=== PATIENT | female | born 1955 | race Caucasian/White ===

== ENCOUNTER 2018-01-21 19:30 | Emergency (ER) | payer MEDICARE ==
[~2018-01-21] VITALS: Ht 167.6 cm; Wt 95.0 kg
[~2018-01-21 19:30] MED LIST: ASCO100029 PO; CLON0.1T PO; CYAN1TAB24 PO; PERC5TAB12 PO; RANI150C PO
[2018-01-21 19:52] VITALS: BP 140/68; PULSE 76; RESP 18; TEMP 98.8; O2SAT 98
== END 2018-01-21 22:01 | disposition left against medical advice (07) ==
LOC: NED 19:30
DX: Z03.89 Encounter for observation for other suspected diseases and conditions ruled out (principal)
CPT/HCPCS: 99281

== ENCOUNTER 2018-01-22 11:32 | Inpatient (IN) | payer MEDICARE, MEDICAID ==
[~2018-01-22] VITALS: Ht 167.6 cm; Wt 97.1 kg
[2018-01-22 11:51] VITALS: BP 156/94; PULSE 116; RESP 20; TEMP 99.5; O2SAT 96
[2018-01-22] MEDS ORDERED: METOCLOPRAMIDE HCL 10 MG/2 ML VIAL IV PUSH ONE (12:45)
[2018-01-22] MEDS ORDERED: MORPHINE SULFATE 2 MG/ML SYRINGE IV PUSH ONE (12:45)
[2018-01-22 13:23] VITALS: PULSE 94; RESP 18; O2SAT 100
[2018-01-22] MEDS ORDERED: MORPHINE SULFATE 4 MG/ML INJ ONE (13:33)
--- NOTE | 2018-01-22 13:37 | PD ---
HPI Chief Complaint: Edema Time Seen by Provider: 12:29 Travel History International Travel<30 days: No Contact w/Intl Traveler<30days: No Traveled to known affect area: No History of Present Illness HPI 62-year-old female that presents to the ED for evaluation of right lower leg edema and shortness of breath. Per patient she has had leg edema since yesterday. She has significant history of endometrial cancer that appears to have metastasized. She states that she has a couple lesions in her aorta but has had no issues with it. She has been doing chemoradiation. She had surgery to remove her uterus. She has never had anything like this before. Since yesterday she developed out of nowhere swelling and pain to the right leg. She denies any discoloration of the leg. She denies take any blood thinners. She has got chemo last week. She called her oncologist who recommended that she comes here to get a ultrasound of her leg. She states that her pain is currently 7 out of 10 on her right leg. She takes Percocet chronically. She has an allergy to codeine. She states that the shortness of breath has been ongoing for some time but she has no chest pain. Gets worse with movement and has been ongoing since having her chemo therapy. Per patient her taken about switching her chemo to a different want to my work better for her. She follows with Dr. Montes. [facility], [facility] Past Medical History Hx Anticoagulant Therapy: No Asthma: No Blood Disorders: No Anxiety: No Depression: No Heart Rhythm Problems: No Cancer: Yes Cardiovascular Problems: No High Cholesterol: No Chemotherapy: No Chest Pain: No Congestive Heart Failure: No COPD: No Cerebrovascular Accident: No Diabetes: No Diminished Hearing: No Endocrine: No Gastrointestinal Disorders: No Genitourinary: Yes (hx. of UTIs) Headaches: Yes Hepatitis: No Hypertension: Yes Immune Disorder: No Implanted Vascular Access Dvce: No Musculoskeletal: Yes (bone degeneration) Neurologic: No Psychiatric: No Reproductive: No Respiratory: No Immunizations Current: Yes Radiation Therapy: No Sleep Apnea: No Thyroid Disease: No Tetanus Vaccination: < 5 Years Influenza Vaccination: No Menopausal: Yes : 1 Para: 1 Past Surgical History AICD: No Arteriovenous Shunt: No Body Medical Devices: PORT Section: Yes Gynecologic Surgery: Yes (C=SECTION,HYSTERECTOMY) Hysterectomy: Yes Insulin Pump: No Joint Replacement: No Oral Surgery: Yes (TONSILLECTOMY) Pacemaker: No Tonsillectomy: Yes Other Surgery: Yes (PORT PLACED RT CHEST) Social History Alcohol Use: No Tobacco Use: No Substance Use: No Allergies-Medications (Allergen,Severity, Reaction): Coded Allergies: codeine (Verified Allergy, Severe, 01/22/18) I see birdies Reported Meds & Prescriptions Reported Meds & Active Scripts Active Ranitidine (Ranitidine HCl) 150 Mg Cap 150 Mg PO BID Reported Clonidine (Clonidine HCl) 0.1 Mg Tab 0.1 Mg PO BID Vitamin C (Ascorbic Acid) 1,000 Mg Tablet.er 1 Tab PO B12 (Cyanocobalamin) 1,000 Mcg Tab 1 Tab PO DAILY Percocet (Oxycodone-Acetaminophen) 5-325 mg Tab 1 Tab PO Q4H PRN Review of Systems Except as stated in HPI: all other systems reviewed are Neg Physical Exam Narrative GENERAL: SKIN: Warm and dry. HEAD: Atraumatic. Normocephalic. EYES: Pupils equal and round. No scleral icterus. No injection or drainage. ENT: No nasal bleeding or discharge. Mucous membranes pink and moist. Tongue is midline. No uvula deviation. NECK: Trachea midline. No JVD. CARDIOVASCULAR: Regular rate and rhythm. No murmurs, S3, S4. RESPIRATORY: No accessory muscle use. Clear to auscultation. Breath sounds equal bilaterally. GASTROINTESTINAL: Abdomen soft, non-tender, nondistended. Hepatic and splenic margins not palpable. MUSCULOSKELETAL: Extremities without clubbing, cyanosis, or edema. No obvious deformities. Full range of motion of the upper and lower extremities bilaterally. 2+ pulses bilaterally. Patient does have 2+ pitting edema on the right leg compared to the left. More noticeable above the knee. No obvious calf tenderness. Tender to touch. No redness. NEUROLOGICAL: Awake and alert. No obvious cranial nerve deficits. Motor grossly within normal limits. Five out of 5 muscle strength in the arms and legs. Normal speech. PSYCHIATRIC: Appropriate mood and affect; insight and judgment normal. Data Data Last Documented VS Vital Signs Date Time Temp Pulse Resp B/P (MAP) Pulse Ox O2 Delivery O2 Flow Rate FiO2 01/22/18 13:39 16 01/22/18 13:23 94 100 Room Air 01/22/18 11:51 99.5 156/94 (114) Orders Orders Complete Blood Count With Diff (01/22/18 12:40) Comprehensive Metabolic Panel (01/22/18 12:40) Ckmb (Isoenzyme) Profile (01/22/18 12:40) Troponin I (01/22/18 12:40) B-Type Natriuretic Peptide (01/22/18 12:40) Prothrombin Time / Inr (Pt) (01/22/18 12:40) Act Partial Throm Time (Ptt) (01/22/18 12:40) Magnesium (Mg) (01/22/18 12:40) Thyroid Stimulating Hormone (01/22/18 12:40) Chest, Single Ap (01/22/18 12:40) Iv Access Insert/Monitor (01/22/18 12:40) Ecg Monitoring (01/22/18 12:40) Oximetry (01/22/18 12:40) Morphine Inj (Morphine Inj) (01/22/18 12:45) Metoclopramide Inj (Reglan Inj) (01/22/18 12:45) Us Leg Venous Doppler (01/22/18 ) Morphine Inj (Morphine Inj) (01/22/18 13:33) Ct Pulmonary Angiogram (01/22/18 ) Iohexol 350 Inj (Omnipaque 350 Inj) (01/22/18 15:11) Ondansetron Odt (Zofran Odt) (01/22/18 16:00) Heparin Inj (Heparin Inj) (01/22/18 16:00) Heparin-D5w 25,000 U/250 Ml (Heparin-D5w (01/22/18 16:30) Act Partial Throm Time (Ptt) (01/22/18 15:48) Prothrombin Time / Inr (Pt) (01/22/18 15:48) Cbc No Diff, Includes Plts (01/22/18 15:48) Cbc No Diff, Includes Plts (01/25/18 06:00) Act Partial Throm Time (Ptt) (01/22/18 22:48) Occult Blood (Hemoccult) Stool (01/22/18 15:48) Admit Order (Ed Use Only) (01/22/18 16:11) Labs Laboratory Tests Test 01/22/18 13:30 White Blood Count 18.0 TH/MM3 Red Blood Count 3.83 MIL/MM3 Hemoglobin 9.8 GM/DL Hematocrit 30.8 % Mean Corpuscular Volume 80.3 FL Mean Corpuscular Hemoglobin 25.6 PG Mean Corpuscular Hemoglobin Concent 31.8 % Red Cell Distribution Width 20.5 % Platelet Count 128 TH/MM3 Mean Platelet Volume 7.5 FL Neutrophils (%) (Auto) 89.0 % Lymphocytes (%) (Auto) 6.4 % Monocytes (%) (Auto) 4.3 % Eosinophils (%) (Auto) 0.2 % Basophils (%) (Auto) 0.1 % Neutrophils # (Auto) 16.1 TH/MM3 Lymphocytes # (Auto) 1.1 TH/MM3 Monocytes # (Auto) 0.8 TH/MM3 Eosinophils # (Auto) 0.0 TH/MM3 Basophils # (Auto) 0.0 TH/MM3 CBC Comment DIFF FINAL Differential Comment Prothrombin Time 11.6 SEC Prothromb Time International Ratio 1.1 RATIO Activated Partial Thromboplast Time 24.3 SEC Blood Urea Nitrogen 25 MG/DL Creatinine 0.89 MG/DL Random Glucose 217 MG/DL Total Protein 7.1 GM/DL Albumin 2.7 GM/DL Calcium Level 8.6 MG/DL Magnesium Level 1.9 MG/DL Alkaline Phosphatase 120 U/L Aspartate Amino Transf (AST/SGOT) 8 U/L Alanine Aminotransferase (ALT/SGPT) 27 U/L Total Bilirubin 0.6 MG/DL Sodium Level 137 MEQ/L Potassium Level 4.0 MEQ/L Chloride Level 98 MEQ/L Carbon Dioxide Level 28.2 MEQ/L Anion Gap 11 MEQ/L Estimat Glomerular Filtration Rate 65 ML/MIN Total Creatine Kinase 15 U/L Troponin I LESS THAN 0.02 NG/ML B-Type Natriuretic Peptide 18 PG/ML Thyroid Stimulating Hormone 3rd Gen 1.430 uIU/ML MDM Medical Decision Making Medical Screen Exam Complete: Yes Emergency Medical Condition: Yes Medical Record Reviewed: Yes Interpretation(s) CBC & BMP Diagram 01/22/18 13:30 Total Protein 7.1, Albumin 2.7 L, Calcium Level 8.6, Magnesium Level 1.9, Alkaline Phosphatase 120 H, Aspartate Amino Transf (AST/SGOT) 8 L, Alanine Aminotransferase (ALT/SGPT) 27, Total Bilirubin 0.6 Last Impressions Chest X-Ray 01/22/18 1240 Signed Impressions: CONCLUSION: The lungs are clear. [id number] in good position. Lower Extremity Ultrasound 01/22/18 Signed Impressions: CONCLUSION: 1. Status of occlusive deep venous thrombus involving the right iliac, common femoral, superficial femoral, popliteal and peroneal veins. CT Angiography 01/22/18 Signed Impressions: CONCLUSION: 1. Bilateral subsegmental and segmental pulmonary emboli. 2. No evidence of acute airspace disease 3. Prominent liver and spleen. coags WNL Differential Diagnosis DVT versus PE versus fluid overload versus ACS versus pneumonia versus cancer pain versus less likely CHF Narrative Course 62-year-old female that presents to the ED for evaluation of right leg pain and swelling. Patient was properly examined and was found to have signs and symptoms concerning for DVT. Labs and imaging order. Labs and imaging did show significant DVT to the right leg. Because of the patient's shortness of breath and concern for PE so CTA was ordered because of this. CT did show positive for bilateral PEs. Case was discussed with my attending who evaluated the patient himself. He recommends starting heparin bolus and drip as well as admission to the medical team. Dr. Rivera himself spoke with Dr. Montes who has nothing to add to the medical care. He states that patient can be admitted and treated as we already have plan. Dr. Jimenez was made aware of the case and agrees to admission. Case was discussed with family and patient who in agreement with need for admission and further evaluation. Diagnosis Primary Impression: Bilateral pulmonary embolism Additional Impressions: DVT of leg (deep venous thrombosis) Qualified Codes: I82.491 - Acute embolism and thrombosis of other specified deep vein of right lower extremity Endometrial cancer Admitting Information Admitting Physician Requests: Admit Ricardo Aguirre Jan 22, 2018 13:37
[2018-01-22 13:50] LABS: AUTOMATED NEUTROPHIL # 16.1 TH/MM3 (1.8-7.7); BASOPHIL % 0.1 % (0.0-2.0); EOSINOPHIL % 0.2 % (0.0-4.0); HEMATOCRIT 30.8 % (35.0-46.0); HEMOGLOBIN 9.8 GM/DL (11.6-15.3); LYMPH % 6.4 % (9.0-44.0); LYMPHOCYTE # 1.1 TH/MM3 (1.0-4.8); MEAN CELL VOLUME 80.3 FL (80.0-100.0); MEAN CORPUSCULAR HEMOGLOBIN 25.6 PG (27.0-34.0); MEAN CORPUSCULAR HGB CONC 31.8 % (32.0-36.0); MEAN PLATELET VOLUME 7.5 FL (7.0-11.0); MONO % 4.3 % (0.0-8.0); MONOCYTE # 0.8 TH/MM3 (0-0.9); PLATELET COUNT 128 TH/MM3 (150-450); RED BLOOD COUNT 3.83 MIL/MM3 (4.00-5.30); RED CELL DISTRIBUTION WIDTH 20.5 % (11.6-17.2)
--- NOTE | 2018-01-22 13:57 | RADRPT ---
EXAM DATE: 01/22/2018 1:40 PM EDT AGE/SEX: 62 years / Female INDICATIONS: Lower extremity swelling for 2 days. CLINICAL DATA: This is the patient's initial encounter. Patient reports that signs and symptoms have been present for 2 days and indicates a pain score of 0/10. MEDICAL/SURGICAL HISTORY: . Endometrial cancer. section. Hysterectomy. [id number]. COMPARISON: No prior exams available for comparison. FINDINGS: A single AP view of the chest demonstrates the lungs to be symmetrically aerated without evidence of mass, infiltrate or effusion. The cardiomediastinal contours are unremarkable. Osseous structures a re intact. The [id number] is in good position. CONCLUSION: The lungs are clear. [id number] in good position. Electronically signed by: Gilmar Garcia MD 01/22/2018 1:56 PM EDT
[2018-01-22 14:01] LABS: INTERNATIONAL NORMALIZED RATIO 1.1 RATIO; PROTHROMBIN TIME - PATIENT 11.6 SEC (9.8-11.6)
[2018-01-22 14:08] LABS: ALBUMIN 2.7 GM/DL (3.4-5.0); ALT (GPT) 27 U/L (10-53); BICARBONATE 28.2 MEQ/L (21.0-32.0); BLOOD UREA NITROGEN 25 MG/DL (7-18); CALCIUM 8.6 MG/DL (8.5-10.1); CHLORIDE 98 MEQ/L (98-107); CREATININE 0.89 MG/DL (0.50-1.00); GLOMERULAR FILTRATION RATE 65 ML/MIN (>89); GLUCOSE,RANDOM 217 MG/DL (74-106); MAGNESIUM 1.9 MG/DL (1.5-2.5); SODIUM (NA) 137 MEQ/L (136-145)
--- NOTE | 2018-01-22 14:16 | RADRPT ---
EXAM DATE: 01/22/2018 1:17 PM EDT AGE/SEX: 62 years / Female INDICATIONS: Right leg swelling. CLINICAL DATA: This is the patient's initial encounter. Patient reports that signs and symptoms have been present for 1 day and indicates a pain score of 9/10. MEDICAL/SURGICAL HISTORY: Hypertension. UTI. Bone degenerating. Dyspnea. Tonsillectomy. Emanuel lawson section. Hysterectomy. COMPARISON: No prior exams available for comparison. TECHNIQUE: Venous ultrasound of both lower extremities was performed from the inguinal ligament to t he proximal calf. Real-time, color Doppler and spectral tracing, compression and augmentation techni ques were used. FINDINGS: Extensive occlusive deep venous thrombus is noted involving the right iliac, common femoral, superfic ial femoral, popliteal and peroneal veins. The right posterior tibial veins are patent CONCLUSION: 1. Status of occlusive deep venous thrombus involving the right iliac, common femoral, superficial f emoral, popliteal and peroneal veins. Electronically signed by: Holden Turner MD 01/22/2018 2:14 PM EDT
[2018-01-22 14:18] LABS: ALKALINE PHOSPHATASE 120 U/L (45-117); AST (GOT) 8 U/L (15-37); TOTAL BILIRUBIN ADULT 0.6 MG/DL (0.2-1.0); TOTAL PROTEIN 7.1 GM/DL (6.4-8.2); TROPONIN I LESS THAN 0.02 NG/ML (0.02-0.05)
[2018-01-22] MEDS ORDERED: IOHEXOL 350 MG/ML 10 ML VIAL (for RAD DIAG) IVCONTRAST ONE (15:11)
--- NOTE | 2018-01-22 15:22 | RADRPT ---
EXAM DATE: 01/22/2018 3:16 PM EDT AGE/SEX: 62 years / Female INDICATIONS: Shortness of breath. Right leg swelling. Endometrial cancer. CLINICAL DATA: This is the patient's initial encounter. Patient reports that signs and symptoms have been present for 2 days and indicates a pain score of 10/10. MEDICAL/SURGICAL HISTORY: Hypertension. Hysterectomy. RADIATION DOSE: 23.27 CTDI (mGy) COMPARISON: No prior exams available for comparison. TECHNIQUE: Volumetric scanning was performed using a multi-row detector CT scanner during bolus infu mamie of 66 ml Omnipaque 350 (iohexol) nonionic water-soluble contrast as a single exam dose. The melissa a was post processed with a variety of visualization algorithms including full volume maximum intensi ty projection and sliding thin slab reformation. Using automated exposure control and adjustment of the mA and/or kV according to patient size, radiation dose was kept as low as reasonably achievable t o obtain optimal diagnostic quality images. FINDINGS: Pulmonary Arteries: Segmental and subsegmental filling defects are identified in the pulmonary arter ial tree of both lungs. There is no evidence of thrombus within the main pulmonary arteries. Lung: No infiltrates seen. Effusion: None. Mediastinum: No evidence of mediastinal or hilar adenopathy. Other: The axilla is unremarkable. CONCLUSION: 1. Bilateral subsegmental and segmental pulmonary emboli. 2. No evidence of acute airspace disease 3. Prominent liver and spleen. Electronically signed by: Omar Borges MD 01/22/2018 3:20 PM EDT
[2018-01-22] MEDS ORDERED: ONDANSETRON ODT 4 MG TAB PO ONE (16:00)
[2018-01-22] MEDS ORDERED: HEPARIN SODIUM - IV 10,000 UNITS/10 ML VIAL IV PUSH ONE (16:00)
[2018-01-22] MEDS ORDERED: cloNIDine HCL 0.1 MG TAB PO PRN (16:15)
[2018-01-22] MEDS ORDERED: SODIUM CHLORIDE 0.9% FLUSH 10 ML FLUSH IV FLUSH PRN (16:30)
[2018-01-22] MEDS ORDERED: BISACODYL 10 MG SUPP RECTAL PRN (16:30)
[2018-01-22] MEDS ORDERED: ACETAMINOPHEN 325 MG TAB PO PRN (16:30)
[2018-01-22] MEDS ORDERED: oxyCODONE/ACETAMINOPHEN 10 MG/325 MG TAB PO PRN (16:30)
[2018-01-22] MEDS ORDERED: INFO FOR PHARMACY/READ COMMENT ONE (16:30)
[2018-01-22] MEDS ORDERED: NALOXONE HCL 0.4 MG/ML AMP IV PUSH PRN (16:30)
[2018-01-22] MEDS ORDERED: HEPARIN-D5W 25,000 U/250 ML 250 ML IV PRN (16:30)
[2018-01-22] MEDS ORDERED: NON-FORMULARY DRUG (Cyanocobalamin (B12) 1 TAB) PO SCH (16:45)
--- NOTE | 2018-01-22 16:54 | HHI.HP ---
[facility] Primary Care Physician Fabrice Robledo MD (Paul) Admission Diagnosis acute right leg DVT and bilateral PE, cancer patient Diagnoses: (1) Morbid obesity Diagnosis: Secondary (2) Endometrial cancer Diagnosis: Secondary (3) Bilateral pulmonary embolism Diagnosis: Principal (4) DVT of leg (deep venous thrombosis) Diagnosis: Principal Chief Complaint: SWELLING IN RIGHT LOWER EXTREMITIY Travel History International Travel<30 Days: No Contact w/Intl Traveler <30 Da: No Traveled to Known Affected Are: No History of Present Illness Patient is a 62-year-old female presented to the emergency department for evaluation of right lower extremity increasing shortness of breath. Patient has had leg edema since yesterday at least. She has had history of endometrial cancer that has metastasized. She has had a couple lesions in her aorta no issues with that from what she knows of. She has been undergoing chemo. Yesterday she started to develop swelling of the right leg out of nowhere. Denies any discoloration of the leg. Denies taking any blood thinners. She had chemo therapy last week. She called her oncologist Dr. Montes who recommended that she come here to get an ultrasound of her leg. Pain was 7 out of 10 in her right leg she chronically takes Percocet 5/325 every 6 hours and ibuprofen 400 mg every 6 hours. She has had the shortness of breath ongoing for some time denies any chest pain it is worse with movement worsens having chemotherapy patient follows with Dr. Montes and Dr. Robledo at the [facility]. Patient found to have bilateral pulmonary emboli and right lower extremity DVTs will be admitted for heparin drip and eventual transition to oral anticoagulation Review of Systems Constitutional: COMPLAINS OF: Fatigue, DENIES: Diaphoretic episodes, Fever, Weight gain, Weight loss, Chills, Dizziness, Change in appetite, Night Sweats Endocrine: DENIES: Abnorml menstrual pattern, Heat/cold intolerance, Polydipsia , Polyuria, Polyphagia Eyes: DENIES: Blurred vision, Diplopia, Eye inflammation, Eye pain, Vision loss , Photosensitivity, Double Vision Ears, nose, mouth, throat: DENIES: Tinnitus, Hearing loss, Vertigo, Nasal discharge, Oral lesions, Throat pain, Hoarseness, Ear Pain, Running Nose, Epistaxis, Sinus Pain, Toothache, Odynophagia Respiratory: COMPLAINS OF: Cough, Snoring, Shortness of breath, DENIES: Apneas , Wheezing, Hemoptysis, Sputum production Cardiovascular: COMPLAINS OF: Dyspnea on Exertion, Lower Extremity Edema (In right lower extremity), DENIES: Chest pain, Palpitations, Syncope, PND, Orthopnea, Claudication Gastrointestinal: COMPLAINS OF: Abdominal pain, Nausea, Vomiting, DENIES: Black stools, Bloody stools, Constipation, Diarrhea, Difficulty Swallowing, Anorexia Genitourinary: DENIES: Abnormal vaginal bleeding, Dysmenorrhea, Dyspareunia, Sexual dysfunction, Urinary frequency, Urinary incontinence, Urgency, Hematuria , Dysuria, Nocturia Musculoskeletal: COMPLAINS OF: Muscle aches, Back pain, DENIES: Joint pain, Stiffness, Joint Swelling Integumentary: DENIES: Abnormal pigmentation, Pruritus, Rash, Nail changes, Breast masses, Breast skin changes, Nipple discharge Hematologic/lymphatic: DENIES: Bruising, Lymphadenopathy Immunologic/allergic: DENIES: Eczema, Urticaria Neurologic: DENIES: Abnormal gait, Headache, Localized weakness, Paresthesias, Seizures, Speech Problems, Tremor, Poor Balance Psychiatric: DENIES: Anxiety, Confusion, Mood changes, Depression, Hallucinations, Agitation, Suicidal Ideation, Homicidal Ideation, Delusions Except as stated in HPI: all other systems reviewed are Neg Past Family Social History Past Medical History Endometrial carcinoma with metastasis Chronic pain History of multiple UTIs Obesity Hypertension History of vascular access with port Past Surgical History Status post port placement right side of chest section Hysterectomy total with bilateral salpingo-oophorectomy Tonsillectomy Reported Medications Reported Meds & Active Scripts Active Ranitidine (Ranitidine HCl) 150 Mg Cap 150 Mg PO BID Reported Clonidine (Clonidine HCl) 0.1 Mg Tab 0.1 Mg PO BID Vitamin C (Ascorbic Acid) 1,000 Mg Tablet.er 1 Tab PO B12 (Cyanocobalamin) 1,000 Mcg Tab 1 Tab PO DAILY Percocet (Oxycodone-Acetaminophen) 5-325 mg Tab 1 Tab PO Q4H PRN Allergies: Coded Allergies: codeine (Verified Allergy, Severe, 01/22/18) I see birdies Active Ordered Medications Current Medications Morphine Sulfate (Morphine Inj) 2 mg ONCE ONCE IV PUSH Last administered on 07/30at 13:34; Start 01/22/18 at 12:45; Stop 01/22/18 at 12:46; Status DC Metoclopramide HCl (Reglan Inj) 5 mg ONCE ONCE IV PUSH Last administered on 07/30at 13:33; Start 01/22/18 at 12:45; Stop 01/22/18 at 12:46; Status DC Morphine Sulfate (Morphine Inj) 4 mg STK-MED ONCE .ROUTE ; Start 01/22/18 at 13: 33; Stop 01/22/18 at 13:34; Status DC Iohexol (Omnipaque 350 Inj) 66 ml STK-MED ONCE IVCONTRAST Last administered on 01/22/18at 15:11; Start 01/22/18 at 15:11; Stop 01/22/18 at 15:12; Status DC Ondansetron HCl (Zofran Odt) 4 mg ONCE ONCE PO Last administered on at 15:57; Start 01/22/18 at 16:00; Stop 01/22/18 at 16:01; Status DC Heparin Sodium (Porcine) (Heparin Inj) 8,000 units ONCE ONCE IV PUSH Last administered on 01/22/18at 15:57; Start 01/22/18 at 16:00; Stop 01/22/18 at 16:01 ; Status DC Heparin Sodium/ Dextrose 250 ml @ 17 mls/hr TITRATE PRN IV Coagulation Management Last administered on 01/22/18at 16:36; Start 01/22/18 at 16:30 Clonidine (Catapres) 0.1 mg Q4H PRN PO SBP>160, DBP>90; Start 01/22/18 at 16:15 ; Status UNV Sodium Chloride (NS Flush) 2 ml UNSCH PRN IV FLUSH FLUSH AFTER USING IV ACCESS ; Start 01/22/18 at 16:30; Status UNV Sodium Chloride (NS Flush) 2 ml BID IV FLUSH ; Start 01/22/18 at 21:00; Status UNV Acetaminophen (Tylenol) 650 mg Q4H PRN PO TEMP > 100.4; Start 01/22/18 at 16:30 ; Status UNV Ondansetron HCl (Zofran Inj) 4 mg Q6H PRN IVP NAUSEA OR VOMITING; Start at 16:30; Status UNV Acetaminophen (Tylenol) 650 mg Q6H PRN PO PAIN SCALE 1 TO 2; Start 01/22/18 at 16:30; Status UNV Ibuprofen (Motrin) 400 mg Q6H PRN PO PAIN SCALE 1 TO 2; Start 01/22/18 at 16:30 ; Status UNV Oxycodone/ Acetaminophen (Percocet 5-325 Mg) 1 tab Q6H PRN PO PAIN SCALE 3 TO 5; Start 01/22/18 at 16:30; Status UNV Oxycodone/ Acetaminophen (Percocet 10-325 Mg) 1 tab Q6H PRN PO PAIN SCALE 6 TO 10; Start 01/22/18 at 16:30; Status UNV Morphine Sulfate (Morphine Inj) 2 mg Q3H PRN IV PUSH Pain 3-5; if unable to take PO; Start 01/22/18 at 16:30; Status UNV Morphine Sulfate (Morphine Inj) 4 mg Q3H PRN IV PUSH Pain 6-10;if unable to take PO; Start 01/22/18 at 16:30; Status UNV Morphine Sulfate (Morphine Inj) 4 mg Q3H PRN IV PUSH BREAKTHROUGH PAIN; Start 01/22/18 at 16:30; Status UNV Naloxone HCl (Narcan Inj) 0.4 mg UNSCH PRN IV PUSH SEE LABEL COMMENTS; Start at 16:30; Status UNV Senna/Docusate Sodium (Irene-Colace) 1 tab BID PO ; Start 01/22/18 at 21:00; Status UNV Magnesium Hydroxide (Milk Of Magnesia Liq) 30 ml Q12H PRN PO Mild constipation ; Start 01/22/18 at 16:30; Status UNV Sennosides (Senokot) 17.2 mg Q12H PRN PO Moderate constipation; Start 01/22/18 at 16:30; Status UNV Bisacodyl (Dulcolax Supp) 10 mg DAILY PRN RECTAL SEVERE CONSITIPATION; Start at 16:30; Status UNV Lactulose (Lactulose Liq) 30 ml DAILY PRN PO SEVERE CONSITIPATION; Start at 16:30; Status UNV Info ([facility] [place] Info For Pharmacy/Read Comment) 1 ONCE ONCE XX ; Start 01/22/18 at 16:30; Stop 01/22/18 at 16:31; Status UNV Patient Medication Teaching (Coumadin Booklet) 1 ONCE ONCE XX ; Start 01/22/18 at 16:30; Stop 01/22/18 at 16:31; Status UNV Warfarin Sodium (Coumadin) 5 mg DAILY@1600 PO ; Start 01/22/18 at 16:30; Status UNV Sodium Chloride (NS Flush) 2 ml UNSCH PRN IV FLUSH FLUSH AFTER USING IV ACCESS ; Start 01/22/18 at 16:30; Status UNV Sodium Chloride (NS Flush) 2 ml BID IV FLUSH ; Start 01/22/18 at 21:00; Status UNV Heparin Sodium/ Dextrose 250 ml @ 0 mls/hr TITRATE PRN IV Coagulation Management; Start 01/22/18 at 16:30; Status UNV Clonidine (Catapres) 0.1 mg BID PO ; Start 01/22/18 at 21:00; Status UNV Non-Formulary Medication 1 tab DAILY PO ; Start 01/22/18 at 16:45; Status UNV Non-Formulary Medication 150 mg BID PO ; Start 01/22/18 at 21:00; Status UNV Prochlorperazine Edisylate (Compazine Inj) 10 mg Q6H PRN IV PUSH NAUSEA/ VOMITING; Start 01/22/18 at 16:45; Status UNV Family History Hypertension Diabetes Social History Denies any tobacco alcohol or illicits currently Physical Exam Vital Signs Vital Signs Date Time Temp Pulse Resp B/P (MAP) Pulse Ox O2 Delivery O2 Flow Rate FiO2 01/22/18 13:39 16 01/22/18 13:23 94 18 100 Room Air 01/22/18 11:51 99.5 116 20 156/94 (114) 96 Physical Exam GENERAL: This is a well-nourished, well-developed patient, in mild distress SKIN: No rashes, ecchymoses or lesions. Cool and dry. HEAD: Atraumatic. Normocephalic. No temporal or scalp tenderness. EYES: Pupils equal round and reactive. Extraocular motions intact. No scleral icterus. No injection or drainage. ENT: Nose without bleeding, purulent drainage or septal hematoma. Throat without erythema, tonsillar hypertrophy or exudate. Uvula midline. Airway patent. NECK: Trachea midline. No JVD or lymphadenopathy. Supple, nontender, no meningeal signs. CARDIOVASCULAR: Regular rate and rhythm without murmurs, gallops, or rubs. S1- S2 no S3 or S4 RESPIRATORY: Clear to auscultation. Breath sounds equal bilaterally. No wheezes , rales, or rhonchi. GASTROINTESTINAL: Abdomen soft, non-tender, nondistended. No hepato-splenomegaly , or palpable masses. No guarding. Obese MUSCULOSKELETAL: Extremities without clubbing, cyanosis, swelling and edema right lower extremity no joint tenderness, effusion, or edema noted. No calf tenderness. Negative Homans sign bilaterally. NEUROLOGICAL: Awake and alert. Cranial nerves II through XII intact. Motor and sensory grossly within normal limits. Five out of 5 muscle strength in all muscle groups. Normal speech. Insight and judgment is good Mood and behavior is appropriate Laboratory Laboratory Tests Test 01/22/18 13:30 White Blood Count 18.0 Red Blood Count 3.83 Hemoglobin 9.8 Hematocrit 30.8 Mean Corpuscular Volume 80.3 Mean Corpuscular Hemoglobin 25.6 Mean Corpuscular Hemoglobin Concent 31.8 Red Cell Distribution Width 20.5 Platelet Count 128 Mean Platelet Volume 7.5 Neutrophils (%) (Auto) 89.0 Lymphocytes (%) (Auto) 6.4 Monocytes (%) (Auto) 4.3 Eosinophils (%) (Auto) 0.2 Basophils (%) (Auto) 0.1 Neutrophils # (Auto) 16.1 Lymphocytes # (Auto) 1.1 Monocytes # (Auto) 0.8 Eosinophils # (Auto) 0.0 Basophils # (Auto) 0.0 CBC Comment DIFF FINAL Differential Comment Prothrombin Time 11.6 Prothromb Time International Ratio 1.1 Activated Partial Thromboplast Time 24.3 Blood Urea Nitrogen 25 Creatinine 0.89 Random Glucose 217 Total Protein 7.1 Albumin 2.7 Calcium Level 8.6 Magnesium Level 1.9 Alkaline Phosphatase 120 Aspartate Amino Transf (AST/SGOT) 8 Alanine Aminotransferase (ALT/SGPT) 27 Total Bilirubin 0.6 Sodium Level 137 Potassium Level 4.0 Chloride Level 98 Carbon Dioxide Level 28.2 Anion Gap 11 Estimat Glomerular Filtration Rate 65 Total Creatine Kinase 15 Troponin I LESS THAN 0.02 B-Type Natriuretic Peptide 18 Thyroid Stimulating Hormone 3rd Gen 1.430 Result Diagram: 01/22/18 1330 01/22/18 1330 Imaging Last Impressions Chest X-Ray 01/22/18 1240 Signed Impressions: CONCLUSION: The lungs are clear. [id number] in good position. Lower Extremity Ultrasound 01/22/18 0000 Signed Impressions: CONCLUSION: 1. Status of occlusive deep venous thrombus involving the right iliac, common femoral, superficial femoral, popliteal and peroneal veins. CT Angiography 01/22/18 0000 Signed Impressions: CONCLUSION: 1. Bilateral subsegmental and segmental pulmonary emboli. 2. No evidence of acute airspace disease 3. Prominent liver and spleen. Caprini VTE Risk Assessment Caprini VTE Risk Assessment: Mod/High Risk (score >= 2) Caprini Risk Assessment Model Point Value = 1 Point Value = 2 Point Value = 3 Point Value = 5 Age 41-60 Minor surgery BMI > 25 kg/m2 Swollen legs Varicose veins or History of unexplained or recurrent spontaneous Oral contraceptives or hormone replacement Sepsis (< 1 month) Serious lung disease, including pneumonia (< 1 month) Abnormal pulmonary function Acute myocardial infarction Congestive heart failure (< 1 month) History of inflammatory bowel disease Medical patient at bed rest Age 61-74 Arthroscopic surgery Major open surgery (> 45 min) Laparoscopic surgery (> 45 min) Malignancy Confined to bed (> 72 hours) Immobilizing plaster cast Central venous access Age >= 75 History of VTE Family history of VTE Factor V Leiden Prothrombin [id number] Lupus anticoagulant Anticardiolipin antibodies Elevated serum homocysteine Heparin-induced thrombocytopenia Other congenital or acquired thrombophilia Stroke (< 1 month) Elective arthroplasty Hip, pelvis, or leg fracture Acute spinal cord injury (< 1 month) Prophylaxis Regimen Total Risk Factor Score Risk Level Prophylaxis Regimen 0-1 Low Early ambulation 2 Moderate Order ONE of the following: *Sequential Compression Device (SCD) *Heparin 5000 units SQ BID 3-4 Higher Order ONE of the following medications: *Heparin 5000 units SQ TID *Enoxaparin/Lovenox 40 mg SQ daily (WT < 150 kg, CrCl > 30 mL/min) *Enoxaparin/Lovenox 30 mg SQ daily (WT < 150 kg, CrCl > 10-29 mL/min) *Enoxaparin/Lovenox 30 mg SQ BID (WT < 150 kg, CrCl > 30 mL/min) AND/OR *Sequential Compression Device (SCD) 5 or more Highest Order ONE of the following medications: *Heparin 5000 units SQ TID (Preferred with Epidurals) *Enoxaparin/Lovenox 40 mg SQ daily (WT < 150 kg, CrCl > 30 mL/min) *Enoxaparin/Lovenox 30 mg SQ daily (WT < 150 kg, CrCl > 10-29 mL/min) *Enoxaparin/Lovenox 30 mg SQ BID (WT < 150 kg, CrCl > 30 mL/min) AND *Sequential Compression Device (SCD) Assessment and Plan Problem List: (1) Hypercoagulable state ICD Code: D68.59 - Other primary thrombophilia (2) Hypertension ICD Code: I10 - Essential (primary) hypertension (3) Morbid obesity ICD Code: E66.01 - Morbid (severe) obesity due to excess calories (4) Endometrial cancer ICD Code: C54.1 - Malignant neoplasm of endometrium Status: Acute (5) Bilateral pulmonary embolism ICD Code: I26.99 - Other pulmonary embolism without acute cor pulmonale Status: Acute (6) DVT of leg (deep venous thrombosis) ICD Code: I82.409 - Acute embolism and thrombosis of unspecified deep veins of unspecified lower extremity Status: Acute Assessment and Plan Bilateral pulmonary emboli and right lower extremity DVT will start on heparin drip and Coumadin and see what novel anticoagulation or Coumadin is covered by her healthcare insurance Consult Dr. Montes of [facility] who is been following her regarding her endometrial carcinoma with metastasis Pain control continue on her protocol of Percocet 5/325 alternating with ibuprofen 400 mg Hypertension continue on clonidine and as needed clonidine Hyperglycemia check a hemoglobin A1c and continue on a diabetic diet with Accu- Cheks before meals and at bedtime Probable obstructive sleep apnea recommend outpatient sleep study Have nursing access her port for vascular access GERD continue on ranitidine and antinausea medication Nausea continue on Zofran and Compazine as needed for nausea A.m. labs Continue on heparin drip Daily PT/INR Case management for help with home anticoagulation Pain control GI and DVT prophylaxis Diabetic education with nutrition and clinical document improvement educator Code Status Full code Discussed Condition With RN and patient and family and Dr. Montes staff and emergency room physician and emergency room PA Physician Certification 2 Midnight Certification Type: Admission for Inpatient Services Order for Inpatient Services The services are ordered in accordance with Medicare regulations or non- Medicare payer requirements, as applicable. In the case of services not specified as inpatient-only, they are appropriately provided as inpatient services in accordance with the 2-midnight benchmark. Estimated LOS (days): 3 days is the estimated time the patient will need to remain in the hospital, assuming treatment plan goals are met and no additional complications. Post-Hospital Plan: Not yet determined Problem Qualifiers (1) DVT of leg (deep venous thrombosis): Qualified Codes: I82.491 - Acute embolism and thrombosis of other specified deep vein of right lower extremity Carlton Jimenez DO Jan 22, 2018 16:54
[2018-01-22] MEDS ORDERED: GLUCAGON 1 MG/ML VIAL OTHER PRN (17:00)
[2018-01-22] MEDS ORDERED: DEXTROSE 50% IN WATER 50 ML VIAL(D50) IV PUSH PRN (17:00)
[2018-01-22 17:05] VITALS: BP 122/56; PULSE 91; RESP 18; O2SAT 97
--- NOTE | 2018-01-22 17:12 | PD.CONS ---
History of Present Illness Service gyn physician/onc Consult Requested By Dr. Rivera Reason for Consult DVT and PE Primary Care Physician Fabrice Robledo MD (Paul) Diagnoses: (1) DVT of leg (deep venous thrombosis) (2) Bilateral pulmonary embolism History of Present Illness This is a patient known to [facility]/ONC clinic for recurrent endometrial cancer. She currently is being treated with single agent Carboplatin. She was doing well but noticed a few week history of right leg pain when she was getting in and out of her car, then yesterday she noticed that her leg was more painful and swollen. She presented to ER for evaluation but left, unseen after three hours. She contacted our office today and was told she needed stat u/s of right leg, in the process of getting this scheduled she presented back to ER for evaluation. Ultrasound shown + DVT to right leg and + PE. Medicine service is going to admit her for treatment with Heparin gtt with transition to oral anticoagulation. Patient is seen in consult in ER for above findings. She states she has no other pain except in her right leg but is also having SOA. Review of Systems Respiratory: COMPLAINS OF: Shortness of breath Except as stated in HPI: all other systems reviewed are Neg right leg swelling and pain Past Family Social History Allergies: Coded Allergies: codeine (Verified Allergy, Severe, 01/22/18) I see birdies Past Medical History HTN osteoporosis Endometrial carcinoma with metastasis History of multiple UTIs Obesity Hypertension Past Surgical History infusa port placement RA lap hyst Tonsillectomy Reported Medications per EMR Active Ordered Medications Current Medications Morphine Sulfate (Morphine Inj) 2 mg ONCE ONCE IV PUSH Last administered on 07/30at 13:34; Start 01/22/18 at 12:45; Stop 01/22/18 at 12:46; Status DC Metoclopramide HCl (Reglan Inj) 5 mg ONCE ONCE IV PUSH Last administered on 07/30at 13:33; Start 01/22/18 at 12:45; Stop 01/22/18 at 12:46; Status DC Morphine Sulfate (Morphine Inj) 4 mg STK-MED ONCE .ROUTE ; Start 01/22/18 at 13: 33; Stop 01/22/18 at 13:34; Status DC Iohexol (Omnipaque 350 Inj) 66 ml STK-MED ONCE IVCONTRAST Last administered on 01/22/18at 15:11; Start 01/22/18 at 15:11; Stop 01/22/18 at 15:12; Status DC Ondansetron HCl (Zofran Odt) 4 mg ONCE ONCE PO Last administered on at 15:57; Start 01/22/18 at 16:00; Stop 01/22/18 at 16:01; Status DC Heparin Sodium (Porcine) (Heparin Inj) 8,000 units ONCE ONCE IV PUSH Last administered on 01/22/18at 15:57; Start 01/22/18 at 16:00; Stop 01/22/18 at 16:01 ; Status DC Heparin Sodium/ Dextrose 250 ml @ 17 mls/hr TITRATE PRN IV Coagulation Management Last administered on 01/22/18at 16:36; Start 01/22/18 at 16:30 Clonidine (Catapres) 0.1 mg Q4H PRN PO SBP>160, DBP>90; Start 01/22/18 at 16:15 ; Status UNV Sodium Chloride (NS Flush) 2 ml UNSCH PRN IV FLUSH FLUSH AFTER USING IV ACCESS ; Start 01/22/18 at 16:30; Status UNV Sodium Chloride (NS Flush) 2 ml BID IV FLUSH ; Start 01/22/18 at 21:00; Status UNV Acetaminophen (Tylenol) 650 mg Q4H PRN PO TEMP > 100.4; Start 01/22/18 at 16:30 ; Status UNV Ondansetron HCl (Zofran Inj) 4 mg Q6H PRN IVP NAUSEA OR VOMITING; Start at 16:30; Status UNV Acetaminophen (Tylenol) 650 mg Q6H PRN PO PAIN SCALE 1 TO 2; Start 01/22/18 at 16:30; Status UNV Ibuprofen (Motrin) 400 mg Q6H PRN PO PAIN SCALE 1 TO 2; Start 01/22/18 at 16:30 ; Status UNV Oxycodone/ Acetaminophen (Percocet 5-325 Mg) 1 tab Q6H PRN PO PAIN SCALE 3 TO 5; Start 01/22/18 at 16:30; Status UNV Oxycodone/ Acetaminophen (Percocet 10-325 Mg) 1 tab Q6H PRN PO PAIN SCALE 6 TO 10; Start 01/22/18 at 16:30; Status UNV Morphine Sulfate (Morphine Inj) 2 mg Q3H PRN IV PUSH Pain 3-5; if unable to take PO; Start 01/22/18 at 16:30; Status UNV Morphine Sulfate (Morphine Inj) 4 mg Q3H PRN IV PUSH Pain 6-10;if unable to take PO; Start 01/22/18 at 16:30; Status UNV Morphine Sulfate (Morphine Inj) 4 mg Q3H PRN IV PUSH BREAKTHROUGH PAIN; Start 01/22/18 at 16:30; Status UNV Naloxone HCl (Narcan Inj) 0.4 mg UNSCH PRN IV PUSH SEE LABEL COMMENTS; Start at 16:30; Status UNV Senna/Docusate Sodium (Irene-Colace) 1 tab BID PO ; Start 01/22/18 at 21:00; Status UNV Magnesium Hydroxide (Milk Of Magnesia Liq) 30 ml Q12H PRN PO Mild constipation ; Start 01/22/18 at 16:30; Status UNV Sennosides (Senokot) 17.2 mg Q12H PRN PO Moderate constipation; Start 01/22/18 at 16:30; Status UNV Bisacodyl (Dulcolax Supp) 10 mg DAILY PRN RECTAL SEVERE CONSITIPATION; Start at 16:30; Status UNV Lactulose (Lactulose Liq) 30 ml DAILY PRN PO SEVERE CONSITIPATION; Start at 16:30; Status UNV Info ([facility] [place] Info For Pharmacy/Read Comment) 1 ONCE ONCE XX ; Start 01/22/18 at 16:30; Stop 01/22/18 at 16:31; Status UNV Patient Medication Teaching (Coumadin Booklet) 1 ONCE ONCE XX ; Start 01/22/18 at 16:30; Stop 01/22/18 at 16:31; Status UNV Warfarin Sodium (Coumadin) 5 mg DAILY@1600 PO ; Start 01/22/18 at 16:30; Status UNV Sodium Chloride (NS Flush) 2 ml UNSCH PRN IV FLUSH FLUSH AFTER USING IV ACCESS ; Start 01/22/18 at 16:30; Status UNV Sodium Chloride (NS Flush) 2 ml BID IV FLUSH ; Start 01/22/18 at 21:00; Status UNV Heparin Sodium/ Dextrose 250 ml @ 0 mls/hr TITRATE PRN IV Coagulation Management; Start 01/22/18 at 16:30; Status UNV Clonidine (Catapres) 0.1 mg BID PO ; Start 01/22/18 at 21:00; Status UNV Non-Formulary Medication 1 tab DAILY PO ; Start 01/22/18 at 16:45; Status UNV Non-Formulary Medication 150 mg BID PO ; Start 01/22/18 at 21:00; Status UNV Prochlorperazine Edisylate (Compazine Inj) 10 mg Q6H PRN IV PUSH NAUSEA/ VOMITING; Start 01/22/18 at 16:45; Status UNV Social History denies alcohol denies tobacco Physical Exam Vital Signs Vital Signs Date Time Temp Pulse Resp B/P (MAP) Pulse Ox O2 Delivery O2 Flow Rate FiO2 01/22/18 13:39 16 01/22/18 13:23 94 18 100 Room Air 01/22/18 11:51 99.5 116 20 156/94 (114) 96 Physical Exam GENERAL: This is a well-nourished, well-developed patient, in no apparent distress. SKIN: No rashes, ecchymoses or lesions. Cool and dry. HEAD: Atraumatic. Normocephalic. No temporal or scalp tenderness. EYES: Pupils equal round and reactive. Extraocular motions intact. No scleral icterus. No injection or drainage. NECK: Trachea midline. CARDIOVASCULAR: Regular rate and rhythm without murmurs, gallops, or rubs. RESPIRATORY: Clear to auscultation. Breath sounds equal bilaterally. No wheezes , rales, or rhonchi. GASTROINTESTINAL: Abdomen soft, non-tender, nondistended. No hepato-splenomegaly , or palpable masses. No guarding. MUSCULOSKELETAL: RL Extremities . + calf tenderness. + Homans sign bilaterally and swelling, skin warm to palpation NEUROLOGICAL: Awake and alert. Laboratory Laboratory Tests Test 01/22/18 13:30 White Blood Count 18.0 Red Blood Count 3.83 Hemoglobin 9.8 Hematocrit 30.8 Mean Corpuscular Volume 80.3 Mean Corpuscular Hemoglobin 25.6 Mean Corpuscular Hemoglobin Concent 31.8 Red Cell Distribution Width 20.5 Platelet Count 128 Mean Platelet Volume 7.5 Neutrophils (%) (Auto) 89.0 Lymphocytes (%) (Auto) 6.4 Monocytes (%) (Auto) 4.3 Eosinophils (%) (Auto) 0.2 Basophils (%) (Auto) 0.1 Neutrophils # (Auto) 16.1 Lymphocytes # (Auto) 1.1 Monocytes # (Auto) 0.8 Eosinophils # (Auto) 0.0 Basophils # (Auto) 0.0 CBC Comment DIFF FINAL Differential Comment Prothrombin Time 11.6 Prothromb Time International Ratio 1.1 Activated Partial Thromboplast Time 24.3 Blood Urea Nitrogen 25 Creatinine 0.89 Random Glucose 217 Total Protein 7.1 Albumin 2.7 Calcium Level 8.6 Magnesium Level 1.9 Alkaline Phosphatase 120 Aspartate Amino Transf (AST/SGOT) 8 Alanine Aminotransferase (ALT/SGPT) 27 Total Bilirubin 0.6 Sodium Level 137 Potassium Level 4.0 Chloride Level 98 Carbon Dioxide Level 28.2 Anion Gap 11 Estimat Glomerular Filtration Rate 65 Total Creatine Kinase 15 Troponin I LESS THAN 0.02 B-Type Natriuretic Peptide 18 Thyroid Stimulating Hormone 3rd Gen 1.430 Result Diagram: 01/22/18 1330 01/22/18 1330 Imaging Last Impressions Chest X-Ray 01/22/18 1240 Signed Impressions: CONCLUSION: The lungs are clear. [id number] in good position. Lower Extremity Ultrasound 01/22/18 0000 Signed Impressions: CONCLUSION: 1. Status of occlusive deep venous thrombus involving the right iliac, common femoral, superficial femoral, popliteal and peroneal veins. CT Angiography 01/22/18 0000 Signed Impressions: CONCLUSION: 1. Bilateral subsegmental and segmental pulmonary emboli. 2. No evidence of acute airspace disease 3. Prominent liver and spleen. Assessment and Plan Problem List: (1) Bilateral pulmonary embolism ICD Codes: I26.99 - Other pulmonary embolism without acute cor pulmonale Status: Acute (2) Endometrial cancer ICD Codes: C54.1 - Malignant neoplasm of endometrium Status: Chronic Plan: will hold IV chemotherapy at this time until discharged pt will receive Doxil and Carboplatin as next line treatment in hopes to achieve better response. (3) DVT of leg (deep venous thrombosis) ICD Codes: I82.409 - Acute embolism and thrombosis of unspecified deep veins of unspecified lower extremity Status: Acute Plan: Medical team to admit Heparin gtt with transition to oral medication Discussed Condition With Hospitalist, Dr. Jimenez ER physician, Dr. Miguel Montes patient and her aunt Problem Qualifiers (1) DVT of leg (deep venous thrombosis): Qualified Codes: I82.491 - Acute embolism and thrombosis of other specified deep vein of right lower extremity Cara Dalton Jan 22, 2018 17:12
[2018-01-22 17:25] VITALS: BP 138/68; PULSE 90; RESP 18; TEMP 99.4; O2SAT 98
[2018-01-22] MEDS ORDERED: MORPHINE SULFATE 4 MG/ML INJ IV PRN (17:45)
[2018-01-22] MEDS: WARFARIN SOD 5 MG TAB PO SCH (18:30)
[2018-01-22] MEDS: INSULIN ASPART SUPPLEMENTAL SCALE SQ SCH ×2 (18:30→21:49)
[2018-01-22] MEDS: oxyCODONE/ACETAMINOPHEN 5 MG/325 MG TAB PO PRN ×2 (19:00→21:39)
[2018-01-22 20:01] VITALS: PULSE 87
[2018-01-22 20:27] VITALS: BP 149/79; PULSE 82; RESP 18; TEMP 99.1; O2SAT 97
[2018-01-22] MEDS ORDERED: NON-FORMULARY DRUG (Ranitidine 150 MG) PO SCH (21:00)
[2018-01-22] MEDS ORDERED: SODIUM CHLORIDE 0.9% FLUSH 10 ML FLUSH IV FLUSH SCH (21:00)
[2018-01-22] MEDS: ONDANSETRON ODT 4 MG TAB PO PRN (21:38)
[2018-01-22] MEDS: DOCUSATE SODIUM 50 MG/SENNA 8.6 MG TAB PO SCH (21:39)
[2018-01-22] MEDS: FAMOTIDINE 20 MG TAB PO SCH (21:40)
[2018-01-22] MEDS: cloNIDine HCL 0.1 MG TAB PO SCH (21:40)
[2018-01-22] MEDS: SODIUM CHLORIDE 0.9% FLUSH 10 ML FLUSH IV FLUSH SCH (21:41)
[2018-01-22] MEDS ORDERED: LIDOCAINE-PRILOCAIN 2.5% CREAM 5 GM TUBE TOPICAL PRN (22:00)
[2018-01-23] VITALS (10 sets, daily range): BP systolic 117–128; BP diastolic 47–84; PULSE 64–85; RESP 16–18; TEMP 97.5–100.4; O2SAT 96–100
[2018-01-23 00:20] LABS: AUTOMATED NEUTROPHIL # 14.4 TH/MM3 (1.8-7.7); BASOPHIL % 0.3 % (0.0-2.0); EOSINOPHIL % 0.3 % (0.0-4.0); HEMATOCRIT 28.2 % (35.0-46.0); HEMOGLOBIN 9.3 GM/DL (11.6-15.3); LYMPH % 11.7 % (9.0-44.0); MEAN CELL VOLUME 80.9 FL (80.0-100.0); MEAN CORPUSCULAR HEMOGLOBIN 26.6 PG (27.0-34.0); MEAN CORPUSCULAR HGB CONC 32.8 % (32.0-36.0); MEAN PLATELET VOLUME 7.8 FL (7.0-11.0); MONO % 4.6 % (0.0-8.0); MONOCYTE # 0.8 TH/MM3 (0-0.9); NEUT % 83.1 % (16.0-70.0); PLATELET COUNT 134 TH/MM3 (150-450); RED BLOOD COUNT 3.49 MIL/MM3 (4.00-5.30); RED CELL DISTRIBUTION WIDTH 20.7 % (11.6-17.2); WHITE BLOOD COUNT 17.3 TH/MM3 (4.0-11.0)
[2018-01-23 00:35] LABS: INTERNATIONAL NORMALIZED RATIO 1.1 RATIO; PROTHROMBIN TIME - PATIENT 11.4 SEC (9.8-11.6)
[2018-01-23] MEDS: IBUPROFEN 400 MG TAB PO PRN ×3 (00:35→15:55)
[2018-01-23] MEDS: oxyCODONE/ACETAMINOPHEN 5 MG/325 MG TAB PO PRN ×4 (04:35→21:16)
[2018-01-23 07:08] LABS: ALBUMIN 2.3 GM/DL (3.4-5.0); AST (GOT) 12 U/L (15-37); BLOOD UREA NITROGEN 21 MG/DL (7-18); CALCIUM 8.6 MG/DL (8.5-10.1); CHLORIDE 95 MEQ/L (98-107); CREATININE 0.78 MG/DL (0.50-1.00); GLOMERULAR FILTRATION RATE 75 ML/MIN (>89); GLUCOSE,RANDOM 163 MG/DL (74-106); MAGNESIUM 2.1 MG/DL (1.5-2.5); SODIUM (NA) 134 MEQ/L (136-145)
[2018-01-23 07:11] LABS: INTERNATIONAL NORMALIZED RATIO 1.1 RATIO; PROTHROMBIN TIME - PATIENT 11.5 SEC (9.8-11.6)
[2018-01-23 07:14] LABS: AUTOMATED NEUTROPHIL # 12.5 TH/MM3 (1.8-7.7); BASOPHIL % 0.3 % (0.0-2.0); EOSINOPHIL # 0.1 TH/MM3 (0-0.4); EOSINOPHIL % 0.4 % (0.0-4.0); HEMATOCRIT 28.6 % (35.0-46.0); HEMOGLOBIN 9.3 GM/DL (11.6-15.3); LYMPH % 11.3 % (9.0-44.0); LYMPHOCYTE # 1.7 TH/MM3 (1.0-4.8); MEAN CELL VOLUME 80.3 FL (80.0-100.0); MEAN CORPUSCULAR HEMOGLOBIN 26.1 PG (27.0-34.0); MEAN CORPUSCULAR HGB CONC 32.5 % (32.0-36.0); MEAN PLATELET VOLUME 7.7 FL (7.0-11.0); MONO % 4.6 % (0.0-8.0); MONOCYTE # 0.7 TH/MM3 (0-0.9); NEUT % 83.4 % (16.0-70.0); PLATELET COUNT 133 TH/MM3 (150-450); RED BLOOD COUNT 3.56 MIL/MM3 (4.00-5.30); RED CELL DISTRIBUTION WIDTH 20.2 % (11.6-17.2)
[2018-01-23 07:17] LABS: ALKALINE PHOSPHATASE 124 U/L (45-117); ALT (GPT) 27 U/L (10-53); FREE T4 1.31 NG/DL (0.76-1.46); PHOSPHORUS 4.5 MG/DL (2.5-4.9); TOTAL BILIRUBIN ADULT 0.7 MG/DL (0.2-1.0); TOTAL PROTEIN 6.5 GM/DL (6.4-8.2)
[2018-01-23] MEDS: ONDANSETRON ODT 4 MG TAB PO PRN (07:19)
[2018-01-23] MEDS: HEPARIN-D5W 25,000 U/250 ML 250 ML IV PRN ×2 (07:23→21:17)
--- NOTE | 2018-01-23 08:02 | MB ---
cc: Jemima Montes MD,Carlton Cohen,Kendra Acevedo,Laura Oh MD DATE: 01/22/2018 PHYSICIAN REQUESTING CONSULT: Dr. Carlton Jimenez REASON FOR CONSULTATION: Endometrial cancer, patient known to us. REASON FOR ADMISSION: Extensive right lower extremity deep vein thrombosis and multifocal pulmonary emboli. Her findings are reviewed. She is seen by me, examined by me and counseled by me in conjunction with our, nurse practitioner (Cara Dalton). I agree with her findings, assessment and plan of care. HISTORY: This is a 62-year-old female with recurrent stage endometrial cancer, who most recently was started on Taxol and carboplatin chemotherapy; however, she had an infusion reaction to her first exposure to Taxol and so she was continued for a total now of three cycles of single agent carboplatin. Followup evaluation showed stability of disease, perhaps some response, but the hope was to provide a better response to treatment. She was counseled and the plan is to add liposomal doxorubicin to the subsequent chemotherapy cycles combined with carboplatin. She was scheduled for treatment with this regimen tomorrow. She reports of fairly acute onset of pain and swelling in her right leg, especially the right upper leg between her knee and her hip, as well as fatigue and a sense of shortness of breath for which she presented to the emergency room. Emergency room evaluation shows extensive right lower extremity multifocal deep vein thromboses as well as multifocal pulmonary emboli on CT angiogram. In speaking with Dr. David Rivera, he felt that given the multifocal extensive nature of the thrombus and pulmonary emboli, she was not a candidate for a thrombectomy. She was started on a heparin drip. I am very grateful for the care provided by the hospitalist medicine service and she is admitted now and seen now in consultation for further evaluation and recommendations regarding these findings. PAST MEDICAL HISTORY: As outlined in the chart. Her endometrial cancer history is as noted above. History of hypertension. PAST SURGICAL HISTORY: In addition to the cancer related hysterectomy, she has tonsillectomy. She has had prior section. She just got a venous access port placed. ALLERGIES: CODEINE. MEDICATIONS: Reviewed and are as outlined in the chart. REVIEW OF SYSTEMS: Is such that she has had no other general symptoms other than fatigue and the fluctuating affect on appetite, nausea and energy related to chemotherapy. She has not noticed any bright red blood or melanotic stool changes. No hematuria. No febrile illness and as noted above, her swelling, pain and shortness of breath came on rather acutely. LABORATORY DATA: Most recent labs show an H and H of 9.3 and 28.6, white count 15, platelets 133. Electrolytes noted for BUN and creatinine of 21 and 0.78. Serum albumin low at 2.3. Remainder of labs are relatively normal. Random glucose is elevated at 163. She is voiding without difficulty. PHYSICAL EXAMINATION: VITAL SIGNS: She had a maximum temperature of 100.4 just after midnight this morning. Currently afebrile, pulse 71-91, respirations 16-18, blood pressure 122-149/56-79, O2 saturations greater than or equal to 97 percent. GENERAL: She is resting and somewhat uncomfortable, but in no acute distress. SKIN: Warm and dry, slightly pale, mucous membranes slightly dry. Pupils equal, round, and reactive to light. NECK: No palpable supraclavicular or cervical adenopathy. BACK: Without CVA tenderness or spinal point of tenderness. LUNGS: Clear bilaterally. CARDIOVASCULAR: Distant S1 and S2. Regular rate and rhythm. ABDOMEN: Nontender, nonacute. Right lower extremity 3 to 4+ edema extending from the hip to the ankle. Tender to palpation behind the knee and in the region of the thigh with decreased range of motion. Extremity is warm. Left lower extremity shows no edema. Neurovascularly intact. DISCUSSION: Time is spent in discussion with her reviewing the findings in her case to date. She does report feeling a little bit better since she has been here. She has been able to get up. She goes back and forth to the bathroom without feeling short of breath. The pain in her right leg is her most troublesome symptom. She is receiving medication for to treat the symptoms as needed. Time spent in discussion with her. I am sorry that she is feeling poorly and again explained the diagnostic imaging showing extensive blood clots in the right leg and lungs bilaterally. I explained that this unfortunately is related to the underlying cancer and reviewed that the blood thinner is currently IV. The plan is to transition that to either oral blood thinners or injections so that we can move toward outpatient management and that the blood thinners will not resolve the current clots, but will help prevent new clots and help to the current clots keep from expanding, while over time it is hoped that the body will be able to break up and break down the current clots. We talked about this being somewhat of a slow chronic process of improvement and sometimes there is persistent swelling in the leg that was affected by clots even after the clots resolved. It is hopeful that her seeking attention straight away will help expedite her recovery. With respect to her cancer treatment, we will put her chemotherapy on hold for 1-2 weeks until this acute problem gets addressed. I do not think we will lose any significant time by that treatment rescheduling especially because of the current issues with the thromboembolism are a priority after which we will move forward as recommended with a combination of liposomal doxorubicin and carboplatin. She also inquires as to the potential role of radiation. Questions were answered to the best of my capacity. I explained that with multifocal disease, radiation may have morbidity that exceeds benefit. I still recommend in favor of chemotherapy, but we can talk further about these issues as we move forward. Discussion ensued. Questions were answered. She expressed good understanding. ASSESSMENT: 1. Recurrent stage I endometrial cancer. 2. Ongoing treatment with carboplatin chemotherapy with plans to change that to liposomal doxorubicin plus carboplatin. 3. Acute onset new right lower extremity multifocal deep vein thrombosis and multifocal bilateral pulmonary emboli. 4. Extensive discussion PLAN: 1. I am grateful for the care provided currently on intravenous heparin drip with plans to transition to either oral medication or Lovenox. 2. I would recommend consultation with hematology/oncology as I am grateful for their care and rely on their expertise in evaluation and management of thromboembolism. Thank you for the consultation. We will follow along in her care. MD THERESE Mejia/TOYIN , 07:26 AM , 08:01 AM
[2018-01-23] MEDS: SODIUM CHLORIDE 0.9% FLUSH 10 ML FLUSH IV FLUSH SCH ×2 (09:00→20:00)
[2018-01-23] MEDS: cloNIDine HCL 0.1 MG TAB PO SCH ×2 (09:27→20:00)
[2018-01-23] MEDS: FAMOTIDINE 20 MG TAB PO SCH ×2 (09:27→19:59)
[2018-01-23] MEDS: MAGNESIUM HYDROXIDE SUSP 30 ML CUP PO PRN (09:27)
[2018-01-23] MEDS: DOCUSATE SODIUM 50 MG/SENNA 8.6 MG TAB PO SCH ×2 (09:28→20:00)
[2018-01-23] MEDS: CYANOCOBALAMIN 1,000 MCG TAB PO SCH (09:28)
[2018-01-23] MEDS ORDERED: ALTEPLASE RECOMBINANT 2 MG VIAL INTRACATH ONE (09:30)
[2018-01-23] MEDS: MORPHINE SULFATE 4 MG/ML INJ IV PRN (09:44)
[2018-01-23] MEDS: INSULIN ASPART SUPPLEMENTAL SCALE SQ SCH ×4 (10:58→19:59)
--- NOTE | 2018-01-23 14:21 | HHI.PR ---
Subjective Remarks Patient still has shortness of breath with exertion. She is not requiring oxygen at this point. No complaints of chest pain. Objective Vital Signs Date Time Temp Pulse Resp B/P (MAP) Pulse Ox O2 Delivery O2 Flow Rate FiO2 01/23/18 12:00 97.5 68 16 126/75 (92) 96 01/23/18 08:00 98.3 64 16 128/67 (87) 100 01/23/18 04:29 97.9 71 16 120/71 (87) 97 01/23/18 04:01 64 01/23/18 00:30 100.4 78 18 123/72 (89) 97 01/23/18 00:09 77 01/22/18 20:27 99.1 82 18 149/79 (102) 97 01/22/18 20:01 87 01/22/18 17:25 99.4 90 18 138/68 (91) 98 01/22/18 17:08 01/22/18 17:05 91 18 122/56 (78) 97 Room Air I/O 01/22/18 01/22/18 01/22/18 01/23/18 01/23/18 01/23/18 07:00 15:00 23:00 07:00 15:00 23:00 Intake Total 480 ml 250 ml Balance 480 ml 250 ml Intake Oral 480 ml IV Total 250 ml # Voids 3 Result Diagram: 01/23/1862801/23/18 06 Objective Remarks GENERAL: NAD, A&Ox3 HEAD: Normocephalic. NECK: Supple, trachea midline. No lymphadenopathy. EYES: No scleral icterus. No injection or drainage. CARDIOVASCULAR: Regular rate and rhythm without murmurs, gallops, or rubs. RESPIRATORY: Breath sounds equal bilaterally. No accessory muscle use. GASTROINTESTINAL: Abdomen soft, non-tender, nondistended. MUSCULOSKELETAL: No cyanosis, or edema. SKIN: Warm and dry. NEURO: No focal neurological deficitis. A/P Problem List: (1) Endometrial cancer ICD Code: C54.1 - Malignant neoplasm of endometrium Status: Chronic (2) Hypercoagulable state ICD Code: D68.59 - Other primary thrombophilia (3) Bilateral pulmonary embolism ICD Code: I26.99 - Other pulmonary embolism without acute cor pulmonale Status: Acute (4) DVT of leg (deep venous thrombosis) ICD Code: I82.409 - Acute embolism and thrombosis of unspecified deep veins of unspecified lower extremity Status: Acute Assessment and Plan 62-year-old female admitted secondary to bilateral pulmonary emboli and right lower extremity DVT Right lower extremity DVT Bilateral pulmonary emboli Currently on heparin No renal disease Patient might be considered for newer anticoagulant treatments such as Eliquis Hematology consulted Endometrial cancer Gynecology following Continue treatments as recommended Continue pain treatments Hypertension Continue baseline treatment Follow blood pressures Adjust treatments as needed Hyperglycemia Follow blood sugars Insulin sliding scale Diabetic diet Probable obstructive sleep apnea recommend outpatient sleep study Gastroesophageal reflux disease Nausea ranitidine and antinausea medication continued DVT prophylaxis Heparin Problem Qualifiers (1) DVT of leg (deep venous thrombosis): Qualified Codes: I82.491 - Acute embolism and thrombosis of other specified deep vein of right lower extremity Gilmar Shafer MD Jan 23, 2018 14:21
[2018-01-23] MEDS: WARFARIN SOD 5 MG TAB PO SCH (15:54)
[2018-01-23 16:27] LABS: HEMOGLOBIN A1C 7.3 % (4.3-6.0)
--- NOTE | 2018-01-23 17:48 | MB ---
cc: Mely Riddle MD, Tabitha N MD DATE: 01/23/2018 CHIEF COMPLAINT: Venous thromboembolism, pulmonary embolism and DVT. HISTORY OF PRESENT ILLNESS: Ms Pérez patient is a 62-year-old lady with a history of diabetes mellitus type 2, overweight, who presented to the hospital on 01/22/2018 with an approximately 3-day history of lower extremity edema and shortness of breath. Both of these symptoms were progressively worsening. She is followed under the direction of Dr. Jemima Montes for management of metastatic endometrial cancer. She has recurrent disease and she was recently started on carboplatin and paclitaxel; however, she had an infusion reaction to her exposure to Taxol and she has been on three cycles of single agent carboplatin. She has recently had followup evaluation, which showed stability of disease with some mild degree of response. Dr. Montes had hoped for a better response to treatment and he plans to add liposomal doxorubicin to subsequent chemotherapy cycles combined with carboplatin. She was scheduled to start this outpatient regimen this week. CT angiography from the emergency room revealed bilateral subsegmental and segmental pulmonary emboli. Lower extremity ultrasound with occlusive deep venous thrombosis involving the right iliac, common femoral, superficial femoral, popliteal, and peroneal veins. Laboratory studies with white blood cell count 15.0, hemoglobin 9.3, platelet count is 133,000 with a differential with an elevated ANC at 12.5. Chemistry studies with a creatinine of 0.78 and a creatinine clearance of greater than 30, AST is low at 12. Alkaline phosphatase is elevated at 124. Albumin is low at 2.3. PAST MEDICAL HISTORY: 1. Endometrial cancer, 2. Obesity, 3. Hypertension, 4. Diabetes. PAST SURGICAL HISTORY: 1. Port placement. 2. . 3. Hysterectomy with bilateral salpingo-oophorectomy 4. Tonsillectomy. FAMILY HISTORY: Grandmother with a history of head and neck cancer. SOCIAL HISTORY: No tobacco, alcohol or illegal drug use. She reports a good family support system. REVIEW OF SYSTEMS: As above in the HPI, all other review of systems negative. PHYSICAL EXAMINATION: VITAL SIGNS: Temperature 98, pulse 82, respiratory rate 16, blood pressure 126/47, pulse oximetry is 97% on room air. GENERAL: Well-developed, overweight lady in no distress, resting comfortably in bed. HEENT: Normocephalic, atraumatic. Alopecia present. NECK: Supple with no palpable lymphadenopathy. CARDIOVASCULAR: Regular rate and rhythm with no murmurs. RESPIRATORY: Clear to auscultation bilaterally. ABDOMEN: Soft, nontender, nondistended. Bowel sounds present. EXTREMITIES: Right lower extremity edema extending from the foot to the groin. Tenderness to palpation and erythema are also present. MUSCULOSKELETAL: Decreased ability to walk and range of motion due to swelling and pain. NEUROLOGIC: Grossly nonfocal. PSYCHIATRIC: Appropriate mood and affect. Alert and oriented x3. ASSESSMENT AND PLAN: 1. Extensive venous thromboembolism in a patient with known metastatic endometrial cancer. Discussed with the patient that she is at high risk for clot given cancer burden. She will need to be treated with an absolute minimum of 3 months of anticoagulation and will likely need indefinite anticoagulation provided she has tolerance of blood thinners. Discussed that treatment of venous embolism in patients with cancer, though effective, is associated with a higher morbidity from recurrent venous thromboembolism as well as bleeding associated with anticoagulation. Would support anticoagulation with Lovenox with dosing of 1 mg/kg twice daily. 2. Anemia, multifactorial due to known chronic disease of malignancy as well as bone marrow suppression from chemotherapy. Continue to monitor. 3. Leukocytosis with neutrophilia reactive. Continue to monitor. Inpatient oncology service will continue to follow. MD KAMALA Nixon/ , 05:25 PM , 05:47 PM KEENAN
[2018-01-23] MEDS ORDERED: ALUMINUM/MAGNESIUM/SIMETH 30 ML CUP PO ONE (21:45)
[2018-01-24] VITALS (13 sets, daily range): BP systolic 91–138; BP diastolic 54–80; PULSE 59–86; RESP 16; TEMP 97–101.1; O2SAT 91–99
[2018-01-24] MEDS: oxyCODONE/ACETAMINOPHEN 5 MG/325 MG TAB PO PRN ×4 (02:18→16:56)
[2018-01-24 03:39] LABS: AUTOMATED NEUTROPHIL # 12.6 TH/MM3 (1.8-7.7); BASOPHIL # 0.1 TH/MM3 (0-0.2); BASOPHIL % 0.4 % (0.0-2.0); EOSINOPHIL # 0.1 TH/MM3 (0-0.4); EOSINOPHIL % 0.5 % (0.0-4.0); HEMATOCRIT 25.2 % (35.0-46.0); HEMOGLOBIN 8.6 GM/DL (11.6-15.3); LYMPH % 8.9 % (9.0-44.0); LYMPHOCYTE # 1.3 TH/MM3 (1.0-4.8); MEAN CELL VOLUME 78.3 FL (80.0-100.0); MEAN CORPUSCULAR HEMOGLOBIN 26.6 PG (27.0-34.0); MEAN PLATELET VOLUME 7.5 FL (7.0-11.0); MONOCYTE # 0.6 TH/MM3 (0-0.9); NEUT % 86.2 % (16.0-70.0); PLATELET COUNT 141 TH/MM3 (150-450); RED BLOOD COUNT 3.22 MIL/MM3 (4.00-5.30); RED CELL DISTRIBUTION WIDTH 20.3 % (11.6-17.2); WHITE BLOOD COUNT 14.6 TH/MM3 (4.0-11.0)
[2018-01-24 03:45] LABS: INTERNATIONAL NORMALIZED RATIO 1.2 RATIO; PROTHROMBIN TIME - PATIENT 11.9 SEC (9.8-11.6)
[2018-01-24 04:03] LABS: ALBUMIN 2.2 GM/DL (3.4-5.0); ALT (GPT) 25 U/L (10-53); AST (GOT) 9 U/L (15-37); BICARBONATE 28.4 MEQ/L (21.0-32.0); BLOOD UREA NITROGEN 18 MG/DL (7-18); CALCIUM 8.7 MG/DL (8.5-10.1); CHLORIDE 94 MEQ/L (98-107); CREATININE 0.63 MG/DL (0.50-1.00); GLOMERULAR FILTRATION RATE 96 ML/MIN (>89); GLUCOSE,RANDOM 155 MG/DL (74-106); SODIUM (NA) 133 MEQ/L (136-145)
[2018-01-24 04:05] LABS: ALKALINE PHOSPHATASE 124 U/L (45-117); TOTAL BILIRUBIN ADULT 0.6 MG/DL (0.2-1.0); TOTAL PROTEIN 6.3 GM/DL (6.4-8.2)
[2018-01-24] MEDS: IBUPROFEN 400 MG TAB PO PRN ×2 (05:26→19:52)
[2018-01-24] MEDS: SODIUM CHLORIDE 0.9% FLUSH 10 ML FLUSH IV FLUSH SCH ×2 (09:00→19:53)
[2018-01-24] MEDS: INSULIN ASPART SUPPLEMENTAL SCALE SQ SCH ×4 (09:10→21:32)
--- NOTE | 2018-01-24 09:10 | PD.ONC.PN ---
Subjective Subjective Remarks rn gyn/onc progress note: patient is resting in bed states leg is still painful otherwise no complaints feels that her SOA has improved since admission Objective Data Date Time Temp Pulse Resp B/P (MAP) Pulse Ox O2 Delivery O2 Flow Rate FiO2 01/24/18 07:49 97 21 01/24/18 04:25 99.3 84 16 121/54 (76) 91 01/24/18 04:01 67 01/24/18 00:19 98.2 59 16 100/54 (69) 97 01/24/18 00:02 61 01/23/18 20:06 75 01/23/18 20:00 98.1 77 16 117/84 (95) 100 01/23/18 17:16 97 21 01/23/18 16:00 98.0 82 16 126/47 (73) 97 01/23/18 16:00 85 01/23/18 12:00 97.5 68 16 126/75 (92) 96 01/23/18 12:00 65 01/24/18 01/24/18 01/24/18 07:00 15:00 23:00 Intake Total 390 ml Balance 390 ml Result Diagram: 01/24/18 0322 01/24/18 0322 Laboratory Results Laboratory Tests Test 01/23/18 13:19 01/23/18 20:00 01/24/18 03:22 Activated Partial Thromboplast Time 32.2 SEC 33.4 SEC 37.5 SEC White Blood Count 14.6 TH/MM3 Red Blood Count 3.22 MIL/MM3 Hemoglobin 8.6 GM/DL Hematocrit 25.2 % Mean Corpuscular Volume 78.3 FL Mean Corpuscular Hemoglobin 26.6 PG Mean Corpuscular Hemoglobin Concent 34.0 % Red Cell Distribution Width 20.3 % Platelet Count 141 TH/MM3 Mean Platelet Volume 7.5 FL Neutrophils (%) (Auto) 86.2 % Lymphocytes (%) (Auto) 8.9 % Monocytes (%) (Auto) 4.0 % Eosinophils (%) (Auto) 0.5 % Basophils (%) (Auto) 0.4 % Neutrophils # (Auto) 12.6 TH/MM3 Lymphocytes # (Auto) 1.3 TH/MM3 Monocytes # (Auto) 0.6 TH/MM3 Eosinophils # (Auto) 0.1 TH/MM3 Basophils # (Auto) 0.1 TH/MM3 CBC Comment DIFF FINAL Differential Comment Prothrombin Time 11.9 SEC Prothromb Time International Ratio 1.2 RATIO Blood Urea Nitrogen 18 MG/DL Creatinine 0.63 MG/DL Random Glucose 155 MG/DL Total Protein 6.3 GM/DL Albumin 2.2 GM/DL Calcium Level 8.7 MG/DL Alkaline Phosphatase 124 U/L Aspartate Amino Transf (AST/SGOT) 9 U/L Alanine Aminotransferase (ALT/SGPT) 25 U/L Total Bilirubin 0.6 MG/DL Sodium Level 133 MEQ/L Potassium Level 3.9 MEQ/L Chloride Level 94 MEQ/L Carbon Dioxide Level 28.4 MEQ/L Anion Gap 11 MEQ/L Estimat Glomerular Filtration Rate 96 ML/MIN Imaging Studies Last Impressions Chest X-Ray 01/22/18 1240 Signed Impressions: CONCLUSION: The lungs are clear. [id number] in good position. Lower Extremity Ultrasound 01/22/18 0000 Signed Impressions: CONCLUSION: 1. Status of occlusive deep venous thrombus involving the right iliac, common femoral, superficial femoral, popliteal and peroneal veins. CT Angiography 01/22/18 0000 Signed Impressions: CONCLUSION: 1. Bilateral subsegmental and segmental pulmonary emboli. 2. No evidence of acute airspace disease 3. Prominent liver and spleen. Administered Medications Medications (Trade) Dose Ordered Sig/Paul Route PRN Reason Start Time Stop Time Status Last Admin Dose Admin Ondansetron HCl (Zofran Odt) 4 mg Q6H PRN PO NAUSEA/VOMITING 01/22/18 17:45 01/23/18 07:19 Ibuprofen (Motrin) 400 mg Q6H PRN PO PAIN SCALE 1 TO 2 01/22/18 16:30 01/24/18 05:26 Morphine Sulfate (Morphine Inj) 4 mg Q3H PRN IV BREAKTHROUGH PAIN 01/22/18 17:45 01/23/18 09:44 Senna/Docusate Sodium (Irene-Colace) 1 tab BID PO 01/22/18 21:00 01/23/18 20:00 Magnesium Hydroxide (Milk Of Magnesia Liq) 30 ml Q12H PRN PO Mild constipation 01/22/18 16:30 01/23/18 09:27 Warfarin Sodium (Coumadin) 5 mg DAILY@1600 PO 01/22/18 18:00 01/23/18 15:54 Sodium Chloride (NS Flush) 2 ml BID IV FLUSH 01/22/18 21:00 01/22/18 21:41 Heparin Sodium/ Dextrose 250 ml @ 17 mls/hr TITRATE PRN IV Coagulation Management 01/22/18 16:30 01/23/18 21:17 Clonidine (Catapres) 0.1 mg BID PO 01/22/18 21:00 01/23/18 20:00 Insulin Aspart (NovoLOG SUPPLEMENTAL SCALE) 1 ACHS SLIDING SCALE SQ 01/22/18 17:00 01/23/18 19:59 Cyanocobalamin (Vitamin B12) 1,000 mcg DAILY PO 01/23/18 09:00 01/23/18 09:28 Famotidine (Pepcid) 20 mg BID PO 01/22/18 21:00 01/23/18 19:59 Lidocaine/ Prilocaine (Emla Cream) TO PORT SITE UNSCH PRN TOPICAL ACCESSING IVAD 01/22/18 22:00 01/22/18 23:27 Oxycodone/ Acetaminophen (Percocet 5-325 Mg) 1 tab Q4H PRN PO PAIN SCALE 3 TO 5 01/23/18 14:30 01/24/18 06:35 Objective Remarks GENERAL: Well-nourished, well-developed patient. SKIN: Warm and dry. HEAD: Normocephalic. EYES: No scleral icterus. No injection or drainage. NECK: Supple, trachea midline. CARDIOVASCULAR: Regular rate and rhythm without murmurs. RESPIRATORY: Breath sounds equal bilaterally. No accessory muscle use. EXTREMITIES: swelling to right leg MUSCULOSKELETAL: Adequate muscle tone. NEUROLOGICAL: No obvious focal deficit. Awake, alert, and oriented x3. PSYCHIATRIC: Appropriate mood and affect; insight and judgment normal. Assessment/Plan Problem List: (1) DVT of leg (deep venous thrombosis) ICD Codes: I82.409 - Acute embolism and thrombosis of unspecified deep veins of unspecified lower extremity Status: Acute Plan: Hem/Onc following: Dr. Riddle to assist with DVT/PE anticoagulation, currently on Heparin gtt recommending SQ Lovenox 1mg/kg BID We thank Dr. Riddle for her assistance in care of Ms. Pérez (2) Bilateral pulmonary embolism ICD Codes: I26.99 - Other pulmonary embolism without acute cor pulmonale Status: Acute (3) Endometrial cancer ICD Codes: C54.1 - Malignant neoplasm of endometrium Status: Chronic Plan: start cycle 1 Doxil with Carboplatin once discharged monitor weekly labs as scheduled Problem Qualifiers (1) DVT of leg (deep venous thrombosis): Qualified Codes: I82.491 - Acute embolism and thrombosis of other specified deep vein of right lower extremity Cara Dalton Jan 24, 2018 09:10
[2018-01-24] MEDS: DOCUSATE SODIUM 50 MG/SENNA 8.6 MG TAB PO SCH ×2 (09:11→19:53)
[2018-01-24] MEDS: cloNIDine HCL 0.1 MG TAB PO SCH ×2 (09:11→19:53)
[2018-01-24] MEDS: CYANOCOBALAMIN 1,000 MCG TAB PO SCH (09:12)
[2018-01-24] MEDS: FAMOTIDINE 20 MG TAB PO SCH ×2 (09:12→19:52)
[2018-01-24] MEDS: HEPARIN-D5W 25,000 U/250 ML 250 ML IV PRN (09:22)
--- NOTE | 2018-01-24 10:43 | HHI.PR ---
Subjective Remarks Shortness of breath continues to improve. Her right lower extremity is still swollen and not yet significantly improved. No new complaints from the patient. Objective Vital Signs Date Time Temp Pulse Resp B/P (MAP) Pulse Ox O2 Delivery O2 Flow Rate FiO2 01/24/18 07:49 97 21 01/24/18 04:25 99.3 84 16 121/54 (76) 91 01/24/18 04:01 67 01/24/18 00:19 98.2 59 16 100/54 (69) 97 01/24/18 00:02 61 01/23/18 20:06 75 01/23/18 20:00 98.1 77 16 117/84 (95) 100 01/23/18 17:16 97 21 01/23/18 16:00 98.0 82 16 126/47 (73) 97 01/23/18 16:00 85 01/23/18 12:00 97.5 68 16 126/75 (92) 96 01/23/18 12:00 65 I/O 01/23/18 01/23/18 01/23/18 01/24/18 01/24/18 01/24/18 07:00 15:00 23:00 07:00 15:00 23:00 Intake Total 480 ml 250 ml 1200 ml 390 ml Balance 480 ml 250 ml 1200 ml 390 ml Intake Oral 480 ml 1200 ml 240 ml IV Total 250 ml 150 ml # Voids 3 6 1 # Bowel Movements 0 Result Diagram: 01/24/18 0322 01/24/18 0322 Objective Remarks GENERAL: NAD, A&Ox3 HEAD: Normocephalic. NECK: Supple, trachea midline. No lymphadenopathy. EYES: No scleral icterus. No injection or drainage. CARDIOVASCULAR: Regular rate and rhythm without murmurs, gallops, or rubs. RESPIRATORY: Breath sounds equal bilaterally. No accessory muscle use. GASTROINTESTINAL: Abdomen soft, non-tender, nondistended. MUSCULOSKELETAL: No cyanosis, or edema. SKIN: Warm and dry. NEURO: No focal neurological deficitis. A/P Problem List: (1) Endometrial cancer ICD Code: C54.1 - Malignant neoplasm of endometrium Status: Chronic (2) Hypercoagulable state ICD Code: D68.59 - Other primary thrombophilia (3) Bilateral pulmonary embolism ICD Code: I26.99 - Other pulmonary embolism without acute cor pulmonale Status: Acute (4) DVT of leg (deep venous thrombosis) ICD Code: I82.409 - Acute embolism and thrombosis of unspecified deep veins of unspecified lower extremity Status: Acute Assessment and Plan 62-year-old female admitted secondary to bilateral pulmonary emboli and right lower extremity DVT Continue with heparin drip for now. Monitor right leg for improvement in swelling. Ultimately plan is to transition to twice daily therapeutic Lovenox dosing at time of discharge. Right lower extremity DVT Bilateral pulmonary emboli Currently on heparin No renal disease Patient might be considered for newer anticoagulant treatments such as Eliquis Hematology consulted Endometrial cancer Gynecology following Continue treatments as recommended Continue pain treatments Hypertension Continue baseline treatment Follow blood pressures Adjust treatments as needed Hyperglycemia Follow blood sugars Insulin sliding scale Diabetic diet Probable obstructive sleep apnea recommend outpatient sleep study Gastroesophageal reflux disease Nausea ranitidine and antinausea medication continued DVT prophylaxis Heparin Problem Qualifiers (1) DVT of leg (deep venous thrombosis): Qualified Codes: I82.491 - Acute embolism and thrombosis of other specified deep vein of right lower extremity Gilmar Shafer MD Jan 24, 2018 10:43
[2018-01-24] MEDS: WARFARIN SOD 5 MG TAB PO SCH (16:56)
[2018-01-24] MEDS: ACETAMINOPHEN 325 MG TAB PO PRN (16:57)
--- NOTE | 2018-01-24 19:48 | PD.ONC.PN ---
Subjective Subjective Remarks Resting comfortably in bed. Pain due to swelling in right lower extremity. Objective Data Date Time Temp Pulse Resp B/P (MAP) Pulse Ox O2 Delivery O2 Flow Rate FiO2 01/24/18 16:40 100.8 81 16 131/80 (97) 99 01/24/18 11:35 99.0 71 16 111/64 (80) 99 01/24/18 08:57 98.4 71 16 118/65 (82) 98 01/24/18 07:49 97 21 01/24/18 04:25 99.3 84 16 121/54 (76) 91 01/24/18 04:01 67 01/24/18 00:19 98.2 59 16 100/54 (69) 97 01/24/18 00:02 61 01/23/18 20:06 75 01/23/18 20:00 98.1 77 16 117/84 (95) 100 01/24/18 01/24/18 01/24/18 07:00 15:00 23:00 Intake Total 390 ml Balance 390 ml Result Diagram: 01/24/18 0322 01/24/18 0322 Laboratory Results Laboratory Tests Test 01/23/18 20:00 01/24/18 03:22 01/24/18 10:44 01/24/18 16:53 Activated Partial Thromboplast Time 33.4 SEC 37.5 SEC 40.1 SEC 39.6 SEC White Blood Count 14.6 TH/MM3 Red Blood Count 3.22 MIL/MM3 Hemoglobin 8.6 GM/DL Hematocrit 25.2 % Mean Corpuscular Volume 78.3 FL Mean Corpuscular Hemoglobin 26.6 PG Mean Corpuscular Hemoglobin Concent 34.0 % Red Cell Distribution Width 20.3 % Platelet Count 141 TH/MM3 Mean Platelet Volume 7.5 FL Neutrophils (%) (Auto) 86.2 % Lymphocytes (%) (Auto) 8.9 % Monocytes (%) (Auto) 4.0 % Eosinophils (%) (Auto) 0.5 % Basophils (%) (Auto) 0.4 % Neutrophils # (Auto) 12.6 TH/MM3 Lymphocytes # (Auto) 1.3 TH/MM3 Monocytes # (Auto) 0.6 TH/MM3 Eosinophils # (Auto) 0.1 TH/MM3 Basophils # (Auto) 0.1 TH/MM3 CBC Comment DIFF FINAL Differential Comment Prothrombin Time 11.9 SEC Prothromb Time International Ratio 1.2 RATIO Blood Urea Nitrogen 18 MG/DL Creatinine 0.63 MG/DL Random Glucose 155 MG/DL Total Protein 6.3 GM/DL Albumin 2.2 GM/DL Calcium Level 8.7 MG/DL Alkaline Phosphatase 124 U/L Aspartate Amino Transf (AST/SGOT) 9 U/L Alanine Aminotransferase (ALT/SGPT) 25 U/L Total Bilirubin 0.6 MG/DL Sodium Level 133 MEQ/L Potassium Level 3.9 MEQ/L Chloride Level 94 MEQ/L Carbon Dioxide Level 28.4 MEQ/L Anion Gap 11 MEQ/L Estimat Glomerular Filtration Rate 96 ML/MIN Administered Medications Medications (Trade) Dose Ordered Sig/Paul Route PRN Reason Start Time Stop Time Status Last Admin Dose Admin Acetaminophen (Tylenol) 650 mg Q4H PRN PO TEMP > 100.4 01/22/18 16:30 01/24/18 16:57 Ondansetron HCl (Zofran Odt) 4 mg Q6H PRN PO NAUSEA/VOMITING 01/22/18 17:45 01/23/18 07:19 Ibuprofen (Motrin) 400 mg Q6H PRN PO PAIN SCALE 1 TO 2 01/22/18 16:30 01/24/18 05:26 Morphine Sulfate (Morphine Inj) 4 mg Q3H PRN IV BREAKTHROUGH PAIN 01/22/18 17:45 01/23/18 09:44 Senna/Docusate Sodium (Irene-Colace) 1 tab BID PO 01/22/18 21:00 01/24/18 09:11 Magnesium Hydroxide (Milk Of Magnesia Liq) 30 ml Q12H PRN PO Mild constipation 01/22/18 16:30 01/23/18 09:27 Sodium Chloride (NS Flush) 2 ml BID IV FLUSH 01/22/18 21:00 01/22/18 21:41 Heparin Sodium/ Dextrose 250 ml @ 17 mls/hr TITRATE PRN IV Coagulation Management 01/22/18 16:30 01/24/18 09:22 Clonidine (Catapres) 0.1 mg BID PO 01/22/18 21:00 01/24/18 09:11 Insulin Aspart (NovoLOG SUPPLEMENTAL SCALE) 1 ACHS SLIDING SCALE SQ 01/22/18 17:00 01/24/18 16:59 Cyanocobalamin (Vitamin B12) 1,000 mcg DAILY PO 01/23/18 09:00 01/24/18 09:12 Famotidine (Pepcid) 20 mg BID PO 01/22/18 21:00 01/24/18 09:12 Lidocaine/ Prilocaine (Emla Cream) TO PORT SITE UNSCH PRN TOPICAL ACCESSING IVAD 01/22/18 22:00 01/22/18 23:27 Oxycodone/ Acetaminophen (Percocet 5-325 Mg) 1 tab Q4H PRN PO PAIN SCALE 3 TO 5 01/23/18 14:30 01/24/18 16:56 Objective Remarks GENERAL: chronically ill appearing lady in no distress. SKIN: Warm and dry. HEAD: Normocephalic. EYES: No scleral icterus. No injection or drainage. CARDIOVASCULAR: Regular rate and rhythm without murmurs. RESPIRATORY:No accessory muscle use. EXTREMITIES: right lower extremity edema MUSCULOSKELETAL: Adequate muscle tone. NEUROLOGICAL: No obvious focal deficit. Awake, alert, and oriented x3. PSYCHIATRIC: Appropriate mood and affect; insight and judgment normal. Assessment/Plan Problem List: (1) DVT of leg (deep venous thrombosis) ICD Codes: I82.409 - Acute embolism and thrombosis of unspecified deep veins of unspecified lower extremity Status: Acute Plan: Hem/Onc following: Dr. Riddle to assist with DVT/PE anticoagulation, currently on Heparin gtt recommending SQ Heparin 1mg/kg BID We thank Dr. Riddle for her assistance in care of Ms. Pérez (2) Bilateral pulmonary embolism ICD Codes: I26.99 - Other pulmonary embolism without acute cor pulmonale Status: Acute (3) Endometrial cancer ICD Codes: C54.1 - Malignant neoplasm of endometrium Status: Chronic Plan: start cycle 1 Doxil with Carboplatin once discharged monitor weekly labs as scheduled Assessment 1. VTE: PE and DVT secondary to hypercoagulable state, malignancy. Changed heparin to lovenox 1mg/kg BID (90 mg twice daily). She will need to be on indefinite anticoagulation with lovenox. 2. Metastatic endometrial cancer: currently receiving chemotherapy under the direction of Dr. Gibson. 3. Anemia/thrombocytopenia: due to chemotherapy 4. Leukocytosis: reactive. Problem Qualifiers (1) DVT of leg (deep venous thrombosis): Qualified Codes: I82.491 - Acute embolism and thrombosis of other specified deep vein of right lower extremity Mely Riddle MD Jan 24, 2018 19:48
[2018-01-24] MEDS: oxyCODONE/ACETAMINOPHEN 10 MG/325 MG TAB PO PRN (21:20)
[2018-01-24] MEDS: ENOXAPARIN SODIUM 100 MG/ML SYRINGE SQ SCH (21:21)
[2018-01-24] MEDS: ONDANSETRON ODT 4 MG TAB PO PRN (21:27)
[2018-01-25] VITALS (11 sets, daily range): BP systolic 104–126; BP diastolic 60–70; PULSE 54–89; RESP 16–21; TEMP 98.1–101; O2SAT 96–100
[2018-01-25] MEDS: oxyCODONE/ACETAMINOPHEN 10 MG/325 MG TAB PO PRN ×4 (00:59→20:51)
[2018-01-25] MEDS: PIPERACIL-TAZO 3.375 GM PREMIX 50 ML IV SCH ×4 (02:51→20:51)
[2018-01-25] MEDS: IBUPROFEN 400 MG TAB PO PRN ×2 (02:52→15:32)
[2018-01-25 02:58] LABS: BACTERIA, URINE OCC /hpf; BILIRUBIN, URINE NEG (NEG); BLOOD, URINE SMALL (NEG); GLUCOSE,URINE NEG (NEG); HYALINE CAST, URINE 1 /lpf (RARE); KETONE, URINE NEG (NEG); NITRITE,URINE NEG (NEG); SQUAMOUS EPITHELIAL CELL URINE 3 /hpf (0-5); URINE COLOR YELLOW (YELLW/STRAW); URINE LEUKOCYTE ESTERASE LARGE (NEG)
[2018-01-25 05:50] LABS: AUTOMATED NEUTROPHIL # 10.1 TH/MM3 (1.8-7.7); BASOPHIL % 0.2 % (0.0-2.0); EOSINOPHIL # 0.1 TH/MM3 (0-0.4); EOSINOPHIL % 0.8 % (0.0-4.0); HEMATOCRIT 24.3 % (35.0-46.0); LYMPH % 9.2 % (9.0-44.0); LYMPHOCYTE # 1.1 TH/MM3 (1.0-4.8); MEAN CELL VOLUME 79.3 FL (80.0-100.0); MEAN CORPUSCULAR HEMOGLOBIN 26.2 PG (27.0-34.0); MEAN CORPUSCULAR HGB CONC 33.1 % (32.0-36.0); MEAN PLATELET VOLUME 7.7 FL (7.0-11.0); MONO % 4.4 % (0.0-8.0); MONOCYTE # 0.5 TH/MM3 (0-0.9); NEUT % 85.4 % (16.0-70.0); PLATELET COUNT 158 TH/MM3 (150-450); RED BLOOD COUNT 3.06 MIL/MM3 (4.00-5.30); RED CELL DISTRIBUTION WIDTH 19.6 % (11.6-17.2); WHITE BLOOD COUNT 11.9 TH/MM3 (4.0-11.0)
[2018-01-25 05:56] LABS: INTERNATIONAL NORMALIZED RATIO 1.4 RATIO; PROTHROMBIN TIME - PATIENT 13.7 SEC (9.8-11.6)
--- NOTE | 2018-01-25 07:12 | PD.ONC.PN ---
Subjective Subjective Remarks obstetrics gynecology physician/onc progress note pt states she had a good night last night leg pain better controlled ABX started for possible UTI Heparin gtt discontinued for Lovenox 1mg/kg BID Objective Data Date Time Temp Pulse Resp B/P (MAP) Pulse Ox O2 Delivery O2 Flow Rate FiO2 01/25/18 05:00 98.3 64 16 114/60 (78) 100 01/25/18 04:03 54 01/25/18 00:18 58 01/25/18 00:04 98.4 61 16 104/62 (76) 96 01/24/18 22:00 99.7 01/24/18 21:12 96 01/24/18 20:11 86 01/24/18 19:47 101.1 83 16 138/71 (93) 96 01/24/18 16:40 100.8 81 16 131/80 (97) 99 01/24/18 11:35 99.0 71 16 111/64 (80) 99 01/24/18 08:57 98.4 71 16 118/65 (82) 98 01/24/18 07:49 97 21 Result Diagram: 01/25/18 0500 01/24/18 0322 Laboratory Results Laboratory Tests Test 01/24/18 10:44 01/24/18 16:53 01/25/18 02:15 01/25/18 05:00 Activated Partial Thromboplast Time 40.1 SEC 39.6 SEC Urine Color YELLOW Urine Turbidity CLOUDY Urine pH 5.0 Urine Specific [place] 1.011 Urine Protein NEG mg/dL Urine Glucose (UA) NEG mg/dL Urine Ketones NEG mg/dL Urine Occult Blood SMALL Urine Nitrite NEG Urine Bilirubin NEG Urine Leukocyte Esterase LARGE Urine RBC 1 /hpf Urine WBC 22 /hpf Urine Squamous Epithelial Cells 3 /hpf Urine Bacteria OCC /hpf Urine Hyaline Casts 1 /lpf Microscopic Urinalysis Comment CULTURE INDICATED White Blood Count 11.9 TH/MM3 Red Blood Count 3.06 MIL/MM3 Hemoglobin 8.0 GM/DL Hematocrit 24.3 % Mean Corpuscular Volume 79.3 FL Mean Corpuscular Hemoglobin 26.2 PG Mean Corpuscular Hemoglobin Concent 33.1 % Red Cell Distribution Width 19.6 % Platelet Count 158 TH/MM3 Mean Platelet Volume 7.7 FL Neutrophils (%) (Auto) 85.4 % Lymphocytes (%) (Auto) 9.2 % Monocytes (%) (Auto) 4.4 % Eosinophils (%) (Auto) 0.8 % Basophils (%) (Auto) 0.2 % Neutrophils # (Auto) 10.1 TH/MM3 Lymphocytes # (Auto) 1.1 TH/MM3 Monocytes # (Auto) 0.5 TH/MM3 Eosinophils # (Auto) 0.1 TH/MM3 Basophils # (Auto) 0.0 TH/MM3 CBC Comment DIFF FINAL Differential Comment Prothrombin Time 13.7 SEC Prothromb Time International Ratio 1.4 RATIO Culture Results Microbiology Date/Time Source Procedure Growth Status 01/25/18 00:00 Blood Peripheral Aerobic Blood Culture Pending Received 01/25/18 00:00 Blood Peripheral Anaerobic Blood Culture Pending Received 01/25/18 00:00 Blood Peripheral Aerobic Blood Culture Pending Received 01/25/18 00:00 Blood Peripheral Anaerobic Blood Culture Pending Received 01/25/18 02:15 Urine Clean Catch Urine Culture Pending Received Imaging Studies Last Impressions Chest X-Ray 01/22/18 1240 Signed Impressions: CONCLUSION: The lungs are clear. [id number] in good position. Lower Extremity Ultrasound 01/22/18 0000 Signed Impressions: CONCLUSION: 1. Status of occlusive deep venous thrombus involving the right iliac, common femoral, superficial femoral, popliteal and peroneal veins. CT Angiography 01/22/18 0000 Signed Impressions: CONCLUSION: 1. Bilateral subsegmental and segmental pulmonary emboli. 2. No evidence of acute airspace disease 3. Prominent liver and spleen. Administered Medications Medications (Trade) Dose Ordered Sig/Paul Route PRN Reason Start Time Stop Time Status Last Admin Dose Admin Acetaminophen (Tylenol) 650 mg Q4H PRN PO TEMP > 100.4 01/22/18 16:30 01/24/18 16:57 Ondansetron HCl (Zofran Odt) 4 mg Q6H PRN PO NAUSEA/VOMITING 01/22/18 17:45 01/24/18 21:27 Ibuprofen (Motrin) 400 mg Q6H PRN PO PAIN SCALE 1 TO 2 01/22/18 16:30 01/25/18 02:52 Morphine Sulfate (Morphine Inj) 4 mg Q3H PRN IV BREAKTHROUGH PAIN 01/22/18 17:45 01/23/18 09:44 Senna/Docusate Sodium (Irene-Colace) 1 tab BID PO 01/22/18 21:00 01/24/18 09:11 Magnesium Hydroxide (Milk Of April Lirandy) 30 ml Q12H PRN PO Mild constipation 01/22/18 16:30 01/23/18 09:27 Sodium Chloride (NS Flush) 2 ml BID IV FLUSH 01/22/18 21:00 01/22/18 21:41 Clonidine (Catapres) 0.1 mg BID PO 01/22/18 21:00 01/24/18 19:53 Insulin Aspart (NovoLOG SUPPLEMENTAL SCALE) 1 ACHS SLIDING SCALE SQ 01/22/18 17:00 01/24/18 21:32 Cyanocobalamin (Vitamin B12) 1,000 mcg DAILY PO 01/23/18 09:00 01/24/18 09:12 Famotidine (Pepcid) 20 mg BID PO 01/22/18 21:00 01/24/18 19:52 Lidocaine/ Prilocaine (Emla Cream) TO PORT SITE UNSCH PRN TOPICAL ACCESSING IVAD 01/22/18 22:00 01/22/18 23:27 Oxycodone/ Acetaminophen (Percocet 5-325 Mg) 1 tab Q4H PRN PO PAIN SCALE 3 TO 5 01/23/18 14:30 01/24/18 16:56 Oxycodone/ Acetaminophen (Percocet 10-325 Mg) 1 tab Q4H PRN PO PAIN SCALE 6 TO 10 01/23/18 14:30 01/25/18 04:59 Enoxaparin Sodium (Lovenox Inj) 90 mg Q12H SQ 01/24/18 22:00 01/24/18 21:21 Piperacillin Sod/ Tazobactam Sod 50 ml @ 100 mls/hr Q6H IV 01/25/18 02:00 01/25/18 02:51 Objective Remarks GENERAL: Well-nourished, well-developed patient. SKIN: Warm and dry. HEAD: Normocephalic. EYES: No scleral icterus. No injection or drainage. CARDIOVASCULAR: Regular rate and rhythm without murmurs. RESPIRATORY: Breath sounds equal bilaterally. No accessory muscle use. EXTREMITIES: RLE edema MUSCULOSKELETAL: Adequate muscle tone. NEUROLOGICAL: No obvious focal deficit. Awake, alert, and oriented x3. PSYCHIATRIC: Appropriate mood and affect; insight and judgment normal. Assessment/Plan Problem List: (1) DVT of leg (deep venous thrombosis) ICD Codes: I82.409 - Acute embolism and thrombosis of unspecified deep veins of unspecified lower extremity Status: Acute Plan: Hem/Onc following: Dr. Riddle to assist with DVT/PE anticoagulation, currently on Heparin gtt recommending SQ Lovenox 1mg/kg BID We thank Dr. Riddle for her assistance in care of Ms. Pérez 01/25/18 Heparin gtt discontinued changed to Lovenox 1mg/kg BID (2) Bilateral pulmonary embolism ICD Codes: I26.99 - Other pulmonary embolism without acute cor pulmonale Status: Acute (3) Endometrial cancer ICD Codes: C54.1 - Malignant neoplasm of endometrium Status: Chronic Plan: start cycle 1 Doxil with Carboplatin once discharged monitor weekly labs as scheduled OK to discharge from obstetrics gynecology physician/onc standpoint once Ok'd with medical team and Hem/Onc Assessment 1. VTE: PE and DVT secondary to hypercoagulable state, malignancy. Changed heparin to lovenox 1mg/kg BID (90 mg twice daily). She will need to be on indefinite anticoagulation with lovenox. 2. Metastatic endometrial cancer: currently receiving chemotherapy under the direction of Dr. Gibson. 3. Anemia/thrombocytopenia: due to chemotherapy 4. Leukocytosis: reactive. Problem Qualifiers (1) DVT of leg (deep venous thrombosis): Qualified Codes: I82.491 - Acute embolism and thrombosis of other specified deep vein of right lower extremity Cara Dalton Jan 25, 2018 07:12
[2018-01-25] MEDS: CYANOCOBALAMIN 1,000 MCG TAB PO SCH (08:23)
[2018-01-25] MEDS: cloNIDine HCL 0.1 MG TAB PO SCH ×2 (08:24→20:50)
[2018-01-25] MEDS: DOCUSATE SODIUM 50 MG/SENNA 8.6 MG TAB PO SCH ×2 (08:24→20:50)
[2018-01-25] MEDS: INSULIN ASPART SUPPLEMENTAL SCALE SQ SCH ×4 (08:25→21:06)
[2018-01-25] MEDS: SODIUM CHLORIDE 0.9% FLUSH 10 ML FLUSH IV FLUSH SCH ×2 (08:25→20:51)
[2018-01-25] MEDS: FAMOTIDINE 20 MG TAB PO SCH ×2 (08:25→20:50)
[2018-01-25] MEDS: ENOXAPARIN SODIUM 100 MG/ML SYRINGE SQ SCH ×2 (08:25→20:50)
[2018-01-25] MEDS: ONDANSETRON ODT 4 MG TAB PO PRN ×2 (09:00→21:06)
[2018-01-25] MEDS: oxyCODONE/ACETAMINOPHEN 5 MG/325 MG TAB PO PRN ×2 (09:00→12:57)
--- NOTE | 2018-01-25 13:05 | PD.ONC.PN ---
Subjective Subjective Remarks Afebrile overnight. Patient resting in bed with children at bedside. reports her right leg continues to hurt at times. lovenox injection li for a few minutes after penetration. Objective Data Date Time Temp Pulse Resp B/P (MAP) Pulse Ox O2 Delivery O2 Flow Rate FiO2 01/25/18 12:55 98.1 59 21 106/67 (80) 99 01/25/18 08:14 98.3 71 16 110/66 (81) 97 01/25/18 05:00 98.3 64 16 114/60 (78) 100 01/25/18 04:03 54 01/25/18 00:18 58 01/25/18 00:04 98.4 61 16 104/62 (76) 96 01/24/18 22:00 99.7 01/24/18 21:12 96 01/24/18 20:11 86 01/24/18 19:47 101.1 83 16 138/71 (93) 96 01/24/18 16:40 100.8 81 16 131/80 (97) 99 Result Diagram: 01/25/18 0500 01/24/18 0322 Laboratory Results Laboratory Tests Test 01/24/18 16:53 01/25/18 02:15 01/25/18 05:00 Activated Partial Thromboplast Time 39.6 SEC Urine Color YELLOW Urine Turbidity CLOUDY Urine pH 5.0 Urine Specific Harper 1.011 Urine Protein NEG mg/dL Urine Glucose (UA) NEG mg/dL Urine Ketones NEG mg/dL Urine Occult Blood SMALL Urine Nitrite NEG Urine Bilirubin NEG Urine Leukocyte Esterase LARGE Urine RBC 1 /hpf Urine WBC 22 /hpf Urine Squamous Epithelial Cells 3 /hpf Urine Bacteria OCC /hpf Urine Hyaline Casts 1 /lpf Microscopic Urinalysis Comment CULTURE INDICATED White Blood Count 11.9 TH/MM3 Red Blood Count 3.06 MIL/MM3 Hemoglobin 8.0 GM/DL Hematocrit 24.3 % Mean Corpuscular Volume 79.3 FL Mean Corpuscular Hemoglobin 26.2 PG Mean Corpuscular Hemoglobin Concent 33.1 % Red Cell Distribution Width 19.6 % Platelet Count 158 TH/MM3 Mean Platelet Volume 7.7 FL Neutrophils (%) (Auto) 85.4 % Lymphocytes (%) (Auto) 9.2 % Monocytes (%) (Auto) 4.4 % Eosinophils (%) (Auto) 0.8 % Basophils (%) (Auto) 0.2 % Neutrophils # (Auto) 10.1 TH/MM3 Lymphocytes # (Auto) 1.1 TH/MM3 Monocytes # (Auto) 0.5 TH/MM3 Eosinophils # (Auto) 0.1 TH/MM3 Basophils # (Auto) 0.0 TH/MM3 CBC Comment DIFF FINAL Differential Comment Prothrombin Time 13.7 SEC Prothromb Time International Ratio 1.4 RATIO Culture Results Microbiology Date/Time Source Procedure Growth Status 01/25/18 00:00 Blood Peripheral Aerobic Blood Culture Pending Received 01/25/18 00:00 Blood Peripheral Anaerobic Blood Culture Pending Received 01/25/18 00:00 Blood Peripheral Aerobic Blood Culture Pending Received 01/25/18 00:00 Blood Peripheral Anaerobic Blood Culture Pending Received 01/25/18 02:15 Urine Clean Catch Urine Culture Pending Received Administered Medications Medications (Trade) Dose Ordered Sig/Paul Route PRN Reason Start Time Stop Time Status Last Admin Dose Admin Acetaminophen (Tylenol) 650 mg Q4H PRN PO TEMP > 100.4 01/22/18 16:30 01/24/18 16:57 Ondansetron HCl (Zofran Odt) 4 mg Q6H PRN PO NAUSEA/VOMITING 01/22/18 17:45 01/25/18 09:00 Ibuprofen (Motrin) 400 mg Q6H PRN PO PAIN SCALE 1 TO 2 01/22/18 16:30 01/25/18 02:52 Morphine Sulfate (Morphine Inj) 4 mg Q3H PRN IV BREAKTHROUGH PAIN 01/22/18 17:45 01/23/18 09:44 Senna/Docusate Sodium (Irene-Colace) 1 tab BID PO 01/22/18 21:00 01/24/18 09:11 Magnesium Hydroxide (Milk Of Magnesia Liq) 30 ml Q12H PRN PO Mild constipation 01/22/18 16:30 01/23/18 09:27 Sodium Chloride (NS Flush) 2 ml BID IV FLUSH 01/22/18 21:00 01/25/18 08:25 Clonidine (Catapres) 0.1 mg BID PO 01/22/18 21:00 01/24/18 19:53 Insulin Aspart (NovoLOG SUPPLEMENTAL SCALE) 1 ACHS SLIDING SCALE SQ 01/22/18 17:00 01/25/18 12:58 Cyanocobalamin (Vitamin B12) 1,000 mcg DAILY PO 01/23/18 09:00 01/25/18 08:23 Famotidine (Pepcid) 20 mg BID PO 01/22/18 21:00 01/25/18 08:25 Lidocaine/ Prilocaine (Emla Cream) TO PORT SITE UNSCH PRN TOPICAL ACCESSING IVAD 01/22/18 22:00 01/22/18 23:27 Oxycodone/ Acetaminophen (Percocet 5-325 Mg) 1 tab Q4H PRN PO PAIN SCALE 3 TO 5 01/23/18 14:30 01/25/18 12:57 Oxycodone/ Acetaminophen (Percocet 10-325 Mg) 1 tab Q4H PRN PO PAIN SCALE 6 TO 10 01/23/18 14:30 01/25/18 04:59 Enoxaparin Sodium (Lovenox Inj) 90 mg Q12H SQ 01/24/18 22:00 01/25/18 08:25 Piperacillin Sod/ Tazobactam Sod 50 ml @ 100 mls/hr Q6H IV 01/25/18 02:00 01/25/18 08:23 Objective Remarks GENERAL: Middle aged female, lying in bed in hospital gown. + alopecia. SKIN: Warm and dry. HEAD: Normocephalic. EYES: No injection or drainage. NECK: Supple, trachea midline. CARDIOVASCULAR: Regular rate and rhythm RESPIRATORY: Breath sounds equal bilaterally. No accessory muscle use. GASTROINTESTINAL: Abdomen soft, non-tender, nondistended. EXTREMITIES: No cyanosis. extensive RLE edema NEUROLOGICAL: awake and alert. normal speech Assessment/Plan Assessment 62y/o female with endometrial cancer, DVT and PE Plan 1. VTE: PE and DVT secondary to hypercoagulable state, malignancy. --continue Lovenox 90mg SQ q 12 hours. may consider change to noac outpatient. would like her to remain on Lovenox SQ for now. --will need lifetime anticoagulation. 2. anemia: monitor CBC Attending Statement The exam, history, and the medical decision-making described in the above note were completed with the assistance of the mid-level provider. I reviewed and agree with the findings presented. I attest that I had a [id number] encounter with the patient on the same day, and personally performed and documented my assessment and findings in the medical record. 62 yoF with metastatic endometrial cancer. Currently on lovenox with improvement in right leg swelling and pain. She will need to be discharged home on subq lovenox 1 mg /kg BID. Jaylin Link Jan 25, 2018 13:05 Mely Riddle MD Jan 25, 2018 19:29
--- NOTE | 2018-01-25 13:58 | HHI.PR ---
Subjective Remarks Fever present overnight. This could be related to DVT, but urinary tract infection is also discovered. Patient is on Zosyn. No new complaints today. Her right lower extremity swelling appears stable. Patient has been transitioned to subcutaneous Lovenox. Objective Vital Signs Date Time Temp Pulse Resp B/P (MAP) Pulse Ox O2 Delivery O2 Flow Rate FiO2 01/25/18 13:43 99 01/25/18 12:55 98.1 59 21 106/67 (80) 99 01/25/18 08:14 98.3 71 16 110/66 (81) 97 01/25/18 05:00 98.3 64 16 114/60 (78) 100 01/25/18 04:03 54 01/25/18 00:18 58 01/25/18 00:04 98.4 61 16 104/62 (76) 96 01/24/18 22:00 99.7 01/24/18 21:12 96 01/24/18 20:11 86 01/24/18 19:47 101.1 83 16 138/71 (93) 96 01/24/18 16:40 100.8 81 16 131/80 (97) 99 I/O 01/24/18 01/24/18 01/24/18 01/25/18 01/25/18 01/25/18 07:00 15:00 23:00 07:00 15:00 23:00 Intake Total 390 ml 200 ml Balance 390 ml 200 ml Intake Oral 240 ml IV Total 150 ml 200 ml # Voids 1 3 Result Diagram: 01/25/18 0500 01/24/18 0322 Objective Remarks GENERAL: NAD, A&Ox3 HEAD: Normocephalic. NECK: Supple, trachea midline. No lymphadenopathy. EYES: No scleral icterus. No injection or drainage. CARDIOVASCULAR: Regular rate and rhythm without murmurs, gallops, or rubs. RESPIRATORY: Breath sounds equal bilaterally. No accessory muscle use. GASTROINTESTINAL: Abdomen soft, non-tender, nondistended. MUSCULOSKELETAL: No cyanosis, or edema. SKIN: Warm and dry. NEURO: No focal neurological deficitis. A/P Problem List: (1) Endometrial cancer ICD Code: C54.1 - Malignant neoplasm of endometrium Status: Chronic (2) Hypercoagulable state ICD Code: D68.59 - Other primary thrombophilia (3) Bilateral pulmonary embolism ICD Code: I26.99 - Other pulmonary embolism without acute cor pulmonale Status: Acute (4) DVT of leg (deep venous thrombosis) ICD Code: I82.409 - Acute embolism and thrombosis of unspecified deep veins of unspecified lower extremity Status: Acute Assessment and Plan 62-year-old female admitted secondary to bilateral pulmonary emboli and right lower extremity DVT Subcutaneous Lovenox twice daily. Monitor right leg for improvement in swelling. Monitor urine cultures. Once patient has more stability or improvement in her right lower extremity swelling she will discharge. Right lower extremity DVT Bilateral pulmonary emboli Currently on heparin No renal disease Patient might be considered for newer anticoagulant treatments such as Eliquis Hematology consulted Endometrial cancer Gynecology following Continue treatments as recommended Continue pain treatments Hypertension Continue baseline treatment Follow blood pressures Adjust treatments as needed Hyperglycemia Follow blood sugars Insulin sliding scale Diabetic diet Probable obstructive sleep apnea recommend outpatient sleep study Gastroesophageal reflux disease Nausea ranitidine and antinausea medication continued DVT prophylaxis Heparin Problem Qualifiers (1) DVT of leg (deep venous thrombosis): Qualified Codes: I82.491 - Acute embolism and thrombosis of other specified deep vein of right lower extremity Gilmar Shafer MD Jan 25, 2018 13:58
[2018-01-25] MEDS: ACETAMINOPHEN 325 MG TAB PO PRN (16:35)
[2018-01-26] VITALS (13 sets, daily range): BP systolic 113–127; BP diastolic 64–74; PULSE 66–89; RESP 16–20; TEMP 97.5–100.4; O2SAT 96–98
[2018-01-26] MEDS: oxyCODONE/ACETAMINOPHEN 10 MG/325 MG TAB PO PRN ×6 (00:34→21:12)
[2018-01-26] MEDS: IBUPROFEN 400 MG TAB PO PRN ×3 (02:30→23:53)
[2018-01-26] MEDS: PIPERACIL-TAZO 3.375 GM PREMIX 50 ML IV SCH ×4 (02:30→20:31)
[2018-01-26 05:03] LABS: AUTOMATED NEUTROPHIL # 11.9 TH/MM3 (1.8-7.7); BASOPHIL % 0.3 % (0.0-2.0); EOSINOPHIL # 0.1 TH/MM3 (0-0.4); EOSINOPHIL % 0.8 % (0.0-4.0); HEMATOCRIT 26.3 % (35.0-46.0); HEMOGLOBIN 8.6 GM/DL (11.6-15.3); LYMPH % 9.2 % (9.0-44.0); LYMPHOCYTE # 1.3 TH/MM3 (1.0-4.8); MEAN CORPUSCULAR HEMOGLOBIN 26.3 PG (27.0-34.0); MEAN CORPUSCULAR HGB CONC 32.8 % (32.0-36.0); MEAN PLATELET VOLUME 7.8 FL (7.0-11.0); MONO % 4.4 % (0.0-8.0); MONOCYTE # 0.6 TH/MM3 (0-0.9); NEUT % 85.3 % (16.0-70.0); PLATELET COUNT 223 TH/MM3 (150-450); RED BLOOD COUNT 3.29 MIL/MM3 (4.00-5.30); RED CELL DISTRIBUTION WIDTH 19.7 % (11.6-17.2)
[2018-01-26 05:20] LABS: INTERNATIONAL NORMALIZED RATIO 1.5 RATIO; PROTHROMBIN TIME - PATIENT 15.2 SEC (9.8-11.6)
[2018-01-26] MEDS: MORPHINE SULFATE 4 MG/ML INJ IV PRN ×2 (05:28→22:37)
[2018-01-26 05:32] LABS: ALBUMIN 2.2 GM/DL (3.4-5.0); ALT (GPT) 23 U/L (10-53); AST (GOT) 12 U/L (15-37); BICARBONATE 28.3 MEQ/L (21.0-32.0); BLOOD UREA NITROGEN 15 MG/DL (7-18); CALCIUM 8.8 MG/DL (8.5-10.1); CHLORIDE 95 MEQ/L (98-107); CREATININE 0.88 MG/DL (0.50-1.00); GLOMERULAR FILTRATION RATE 66 ML/MIN (>89); GLUCOSE,RANDOM 128 MG/DL (74-106); SODIUM (NA) 133 MEQ/L (136-145)
[2018-01-26 05:34] LABS: ALKALINE PHOSPHATASE 149 U/L (45-117); TOTAL BILIRUBIN ADULT 0.6 MG/DL (0.2-1.0); TOTAL PROTEIN 6.8 GM/DL (6.4-8.2)
[2018-01-26] MEDS: DOCUSATE SODIUM 50 MG/SENNA 8.6 MG TAB PO SCH ×2 (08:44→20:31)
[2018-01-26] MEDS: cloNIDine HCL 0.1 MG TAB PO SCH ×2 (08:45→20:31)
[2018-01-26] MEDS: CYANOCOBALAMIN 1,000 MCG TAB PO SCH (08:45)
[2018-01-26] MEDS: FAMOTIDINE 20 MG TAB PO SCH ×2 (08:50→20:42)
[2018-01-26] MEDS: SODIUM CHLORIDE 0.9% FLUSH 10 ML FLUSH IV FLUSH SCH ×2 (08:57→20:44)
--- NOTE | 2018-01-26 09:11 | PD.ONC.PN ---
Subjective Subjective Remarks T-max 99.9 overnight Patient reports the pain and swelling in her right lower extremity is quite painful as her pain medication is late Reports her breathing is okay She has been walking around her room Still complaining of the pain with Lovenox injection; asking if she can have oral anticoagulation instead Objective Data Date Time Temp Pulse Resp B/P (MAP) Pulse Ox O2 Delivery O2 Flow Rate FiO2 01/26/18 08:35 98 Room Air 01/26/18 08:35 98.2 80 18 122/64 (83) 98 01/26/18 04:07 86 01/26/18 04:05 99.9 79 16 127/67 (87) 98 01/26/18 02:33 98.4 01/26/18 00:30 99.3 73 16 125/69 (87) 96 01/26/18 00:14 73 01/25/18 20:52 98.9 72 16 126/70 (88) 100 01/25/18 20:14 89 01/25/18 18:00 99.5 01/25/18 15:57 101.0 72 20 115/67 (83) 97 01/25/18 13:43 99 01/25/18 12:55 98.1 59 21 106/67 (80) 99 01/26/18 01/26/18 01/26/18 07:00 15:00 23:00 Intake Total 600 ml Output Total 1400 ml Balance -800 ml Result Diagram: 01/26/18 0400 01/26/18 0400 Laboratory Results Laboratory Tests Test 01/26/18 04:00 White Blood Count 14.0 TH/MM3 Red Blood Count 3.29 MIL/MM3 Hemoglobin 8.6 GM/DL Hematocrit 26.3 % Mean Corpuscular Volume 80.0 FL Mean Corpuscular Hemoglobin 26.3 PG Mean Corpuscular Hemoglobin Concent 32.8 % Red Cell Distribution Width 19.7 % Platelet Count 223 TH/MM3 Mean Platelet Volume 7.8 FL Neutrophils (%) (Auto) 85.3 % Lymphocytes (%) (Auto) 9.2 % Monocytes (%) (Auto) 4.4 % Eosinophils (%) (Auto) 0.8 % Basophils (%) (Auto) 0.3 % Neutrophils # (Auto) 11.9 TH/MM3 Lymphocytes # (Auto) 1.3 TH/MM3 Monocytes # (Auto) 0.6 TH/MM3 Eosinophils # (Auto) 0.1 TH/MM3 Basophils # (Auto) 0.0 TH/MM3 CBC Comment DIFF FINAL Differential Comment Prothrombin Time 15.2 SEC Prothromb Time International Ratio 1.5 RATIO Blood Urea Nitrogen 15 MG/DL Creatinine 0.88 MG/DL Random Glucose 128 MG/DL Total Protein 6.8 GM/DL Albumin 2.2 GM/DL Calcium Level 8.8 MG/DL Alkaline Phosphatase 149 U/L Aspartate Amino Transf (AST/SGOT) 12 U/L Alanine Aminotransferase (ALT/SGPT) 23 U/L Total Bilirubin 0.6 MG/DL Sodium Level 133 MEQ/L Potassium Level 4.0 MEQ/L Chloride Level 95 MEQ/L Carbon Dioxide Level 28.3 MEQ/L Anion Gap 10 MEQ/L Estimat Glomerular Filtration Rate 66 ML/MIN Culture Results Microbiology Date/Time Source Procedure Growth Status 01/25/18 00:00 Blood Peripheral Aerobic Blood Culture Pending Received 01/25/18 00:00 Blood Peripheral Anaerobic Blood Culture Pending Received 01/25/18 00:00 Blood Peripheral Aerobic Blood Culture Pending Received 01/25/18 00:00 Blood Peripheral Anaerobic Blood Culture Pending Received 01/25/18 02:15 Urine Clean Catch Urine Culture Pending Received Administered Medications Medications (Trade) Dose Ordered Sig/Paul Route PRN Reason Start Time Stop Time Status Last Admin Dose Admin Acetaminophen (Tylenol) 650 mg Q4H PRN PO TEMP > 100.4 01/22/18 16:30 01/25/18 16:35 Ondansetron HCl (Zofran Odt) 4 mg Q6H PRN PO NAUSEA/VOMITING 01/22/18 17:45 01/25/18 21:06 Ibuprofen (Motrin) 400 mg Q6H PRN PO PAIN SCALE 1 TO 2 01/22/18 16:30 01/26/18 02:30 Morphine Sulfate (Morphine Inj) 4 mg Q3H PRN IV BREAKTHROUGH PAIN 01/22/18 17:45 01/26/18 05:28 Senna/Docusate Sodium (Irene-Colace) 1 tab BID PO 01/22/18 21:00 01/26/18 08:44 Magnesium Hydroxide (Milk Of Magnesia Liq) 30 ml Q12H PRN PO Mild constipation 01/22/18 16:30 01/23/18 09:27 Sodium Chloride (NS Flush) 2 ml BID IV FLUSH 01/22/18 21:00 01/26/18 08:57 Clonidine (Catapres) 0.1 mg BID PO 01/22/18 21:00 01/26/18 08:45 Insulin Aspart (NovoLOG SUPPLEMENTAL SCALE) 1 ACHS SLIDING SCALE SQ 01/22/18 17:00 01/25/18 21:06 Cyanocobalamin (Vitamin B12) 1,000 mcg DAILY PO 01/23/18 09:00 01/26/18 08:45 Famotidine (Pepcid) 20 mg BID PO 01/22/18 21:00 01/26/18 08:50 Lidocaine/ Prilocaine (Emla Cream) TO PORT SITE UNSCH PRN TOPICAL ACCESSING IVAD 01/22/18 22:00 01/22/18 23:27 Oxycodone/ Acetaminophen (Percocet 5-325 Mg) 1 tab Q4H PRN PO PAIN SCALE 3 TO 5 01/23/18 14:30 01/25/18 12:57 Oxycodone/ Acetaminophen (Percocet 10-325 Mg) 1 tab Q4H PRN PO PAIN SCALE 6 TO 10 01/23/18 14:30 01/26/18 08:45 Enoxaparin Sodium (Lovenox Inj) 90 mg Q12H SQ 01/24/18 22:00 01/25/18 20:50 Piperacillin Sod/ Tazobactam Sod 50 ml @ 100 mls/hr Q6H IV 01/25/18 02:00 01/26/18 02:30 Objective Remarks GENERAL: Middle aged female, lying in bed in no acute distress. SKIN: Warm and dry. HEAD: Normocephalic. + Alopecia EYES: No injection or drainage. NECK: Supple, trachea midline. CARDIOVASCULAR: Regular rate and rhythm RESPIRATORY: Breath sounds equal bilaterally. No accessory muscle use. GASTROINTESTINAL: Abdomen soft, non-tender, nondistended. EXTREMITIES: No cyanosis. extensive RLE edema NEUROLOGICAL: Moving all extremities. No obvious focal deficit. Assessment/Plan Assessment 62y/o female with endometrial cancer, DVT and PE Plan Patient with pulmonary embolus as well as right lower extremity extensive DVT. She is currently on Lovenox but is requesting to be switched to an oral anticoagulant. I discussed with the patient that studies show patients with carcinoma do better with low molecular weight heparin compared to other anticoagulants however if she is not willing to give herself an injection then a NOAC would be considered. She will follow-up with Dr. Montes's office once discharged where she will continue chemotherapy for her endometrial cancer. Attending Statement The exam, history, and the medical decision-making described in the above note were completed with the assistance of the mid-level provider. I reviewed and agree with the findings presented. I attest that I had a [id number] encounter with the patient on the same day, and personally performed and documented my assessment and findings in the medical record. The patient tells me that the right leg has become increasingly swollen when she was transitioned from IV heparin to Lovenox. Her exam shows quite extensive swelling of the right leg. Will order a repeat ultrasound of the right leg to make sure there is no progression. If the patient does not go home on Lovenox she may be a candidate for treatment with Edoxaban Lana Persaud Jan 26, 2018 09:10 Bret Guzman MD Jan 26, 2018 15:25
[2018-01-26] MEDS: INSULIN ASPART SUPPLEMENTAL SCALE SQ SCH ×4 (09:23→20:42)
[2018-01-26] MEDS: ENOXAPARIN SODIUM 100 MG/ML SYRINGE SQ SCH ×2 (09:59→20:31)
--- NOTE | 2018-01-26 12:46 | HHI.PR ---
Subjective Remarks Swelling and pain have worsened compared to previous day. This could be related to increase activity. Lovenox failure could also be an etiology. Objective Vital Signs Date Time Temp Pulse Resp B/P (MAP) Pulse Ox O2 Delivery O2 Flow Rate FiO2 01/26/18 08:35 98 Room Air 01/26/18 08:35 98.2 80 18 122/64 (83) 98 01/26/18 04:07 86 01/26/18 04:05 99.9 79 16 127/67 (87) 98 01/26/18 02:33 98.4 01/26/18 00:30 99.3 73 16 125/69 (87) 96 01/26/18 00:14 73 01/25/18 20:52 98.9 72 16 126/70 (88) 100 01/25/18 20:14 89 01/25/18 18:00 99.5 01/25/18 15:57 101.0 72 20 115/67 (83) 97 01/25/18 13:43 99 01/25/18 12:55 98.1 59 21 106/67 (80) 99 I/O 01/25/18 01/25/18 01/25/18 01/26/18 01/26/18 01/26/18 07:00 15:00 23:00 07:00 15:00 23:00 Intake Total 50 ml 290 ml 600 ml Output Total 200 ml 1400 ml Balance 50 ml 90 ml -800 ml Intake Oral 240 ml 600 ml IV Total 50 ml 50 ml Output Urine Total 200 ml 1400 ml # Voids 3 4 Result Diagram: 01/26/18 0400 01/26/18 0400 Objective Remarks GENERAL: NAD, A&Ox3 HEAD: Normocephalic. NECK: Supple, trachea midline. No lymphadenopathy. EYES: No scleral icterus. No injection or drainage. CARDIOVASCULAR: Regular rate and rhythm without murmurs, gallops, or rubs. RESPIRATORY: Breath sounds equal bilaterally. No accessory muscle use. GASTROINTESTINAL: Abdomen soft, non-tender, nondistended. MUSCULOSKELETAL: No cyanosis, or edema. SKIN: Warm and dry. NEURO: No focal neurological deficitis. A/P Problem List: (1) Endometrial cancer ICD Code: C54.1 - Malignant neoplasm of endometrium Status: Chronic (2) Hypercoagulable state ICD Code: D68.59 - Other primary thrombophilia (3) Bilateral pulmonary embolism ICD Code: I26.99 - Other pulmonary embolism without acute cor pulmonale Status: Acute (4) DVT of leg (deep venous thrombosis) ICD Code: I82.409 - Acute embolism and thrombosis of unspecified deep veins of unspecified lower extremity Status: Acute Assessment and Plan 62-year-old female admitted secondary to bilateral pulmonary emboli and right lower extremity DVT Due to worsening swelling and pain will continue to monitor right lower extremity. Lovenox will be continued for approximately 24 hours more to give this a chance to work, unless otherwise instructed by hematology. If no improvement or worsening is present through tomorrow we will consider transitioning back to IV heparin. Right lower extremity DVT Bilateral pulmonary emboli Currently on heparin No renal disease Patient might be considered for newer anticoagulant treatments such as Eliquis Hematology consulted Endometrial cancer Gynecology following Continue treatments as recommended Continue pain treatments Hypertension Continue baseline treatment Follow blood pressures Adjust treatments as needed Hyperglycemia Follow blood sugars Insulin sliding scale Diabetic diet Probable obstructive sleep apnea recommend outpatient sleep study Gastroesophageal reflux disease Nausea ranitidine and antinausea medication continued DVT prophylaxis Heparin Problem Qualifiers (1) DVT of leg (deep venous thrombosis): Qualified Codes: I82.491 - Acute embolism and thrombosis of other specified deep vein of right lower extremity Gilmar Shafer MD Jan 26, 2018 12:46
[2018-01-26] MEDS: ONDANSETRON ODT 4 MG TAB PO PRN (12:51)
--- NOTE | 2018-01-26 19:01 | RADRPT ---
EXAM DATE: 01/26/2018 6:10 PM EDT AGE/SEX: 62 years / Female INDICATIONS: Right leg swelling. CLINICAL DATA: This is the patient's subsequent encounter. Patient reports that signs and symptoms h ave been present for 4 - 6 days and indicates a pain score of 10/10. MEDICAL/SURGICAL HISTORY: Hypertension. Gastroesophageal reflux disease. Arthritis. Recent r ight leg dvt.Diabetes. Endometrial cancer. Hysterectomy. Tonsillectomy. Right chest port. [place] [facility] [place]. . TECHNIQUE: Venous ultrasound of both lower extremities was performed from the inguinal ligament to t he proximal calf. Real-time, color Doppler and spectral tracing, compression and augmentation techni ques were used. FINDINGS: There is occlusive thrombus in the right iliac vein through the superficial femoral vein, popliteal vein and posterior tibial vein. Greater saphenous vein also contains thrombus. Findings sim ilar to January 22. CONCLUSION: 1. Extensive right lower extremity occlusive DVT. Electronically signed by: Lawrence Flower MD 01/26/2018 6:59 PM EDT
[2018-01-26] MEDS: MAGNESIUM HYDROXIDE SUSP 30 ML CUP PO PRN (20:31)
[2018-01-26] MEDS: ACETAMINOPHEN 325 MG TAB PO PRN (20:42)
[2018-01-27] VITALS (15 sets, daily range): BP systolic 124–161; BP diastolic 62–78; PULSE 71–94; RESP 17–20; TEMP 97.3–102.5; O2SAT 93–99
[2018-01-27] MEDS: oxyCODONE/ACETAMINOPHEN 10 MG/325 MG TAB PO PRN ×6 (01:08→23:12)
[2018-01-27] MEDS: PIPERACIL-TAZO 3.375 GM PREMIX 50 ML IV SCH ×4 (02:05→20:47)
[2018-01-27] MEDS: MORPHINE SULFATE 4 MG/ML INJ IV PRN ×6 (03:12→20:49)
[2018-01-27 05:26] LABS: AUTOMATED NEUTROPHIL # 9.5 TH/MM3 (1.8-7.7); BASOPHIL % 0.2 % (0.0-2.0); EOSINOPHIL # 0.1 TH/MM3 (0-0.4); EOSINOPHIL % 1.1 % (0.0-4.0); HEMATOCRIT 25.9 % (35.0-46.0); HEMOGLOBIN 8.3 GM/DL (11.6-15.3); LYMPH % 11.2 % (9.0-44.0); LYMPHOCYTE # 1.3 TH/MM3 (1.0-4.8); MEAN CELL VOLUME 79.6 FL (80.0-100.0); MEAN CORPUSCULAR HEMOGLOBIN 25.5 PG (27.0-34.0); MEAN PLATELET VOLUME 7.3 FL (7.0-11.0); MONO % 5.2 % (0.0-8.0); MONOCYTE # 0.6 TH/MM3 (0-0.9); NEUT % 82.3 % (16.0-70.0); PLATELET COUNT 253 TH/MM3 (150-450); RED BLOOD COUNT 3.25 MIL/MM3 (4.00-5.30); RED CELL DISTRIBUTION WIDTH 19.9 % (11.6-17.2); WHITE BLOOD COUNT 11.6 TH/MM3 (4.0-11.0)
[2018-01-27 05:32] LABS: INTERNATIONAL NORMALIZED RATIO 1.3 RATIO; PROTHROMBIN TIME - PATIENT 13.2 SEC (9.8-11.6)
[2018-01-27] MEDS: DOCUSATE SODIUM 50 MG/SENNA 8.6 MG TAB PO SCH ×2 (07:26→20:48)
[2018-01-27] MEDS: FAMOTIDINE 20 MG TAB PO SCH ×2 (07:26→20:48)
[2018-01-27] MEDS: CYANOCOBALAMIN 1,000 MCG TAB PO SCH (07:27)
[2018-01-27] MEDS: cloNIDine HCL 0.1 MG TAB PO SCH ×2 (07:27→20:47)
[2018-01-27] MEDS: SODIUM CHLORIDE 0.9% FLUSH 10 ML FLUSH IV FLUSH SCH ×2 (07:29→20:50)
[2018-01-27] MEDS: INSULIN ASPART SUPPLEMENTAL SCALE SQ SCH ×4 (07:39→20:48)
[2018-01-27] MEDS: LACTULOSE SYRUP 20 GM/30 ML CUP PO PRN (07:47)
[2018-01-27] MEDS: ONDANSETRON ODT 4 MG TAB PO PRN (09:48)
[2018-01-27] MEDS: ENOXAPARIN SODIUM 100 MG/ML SYRINGE SQ SCH (11:39)
[2018-01-27] MEDS: PROCHLORPERAZINE INJ 10 MG/2 ML VIAL IV PUSH PRN (11:39)
[2018-01-27] MEDS ORDERED: HEPARIN SODIUM - IV 10,000 UNITS/10 ML VIAL IV PUSH ONE (12:00)
--- NOTE | 2018-01-27 12:10 | HHI.PR ---
Subjective Remarks Worsened swelling and pain are not improved today. This likely represents Lovenox failure. Patient transition back to heparin. Objective Vital Signs Date Time Temp Pulse Resp B/P (MAP) Pulse Ox O2 Delivery O2 Flow Rate FiO2 01/27/18 11:36 97.7 82 18 124/62 (82) 98 01/27/18 08:00 94 01/27/18 07:29 98.1 78 20 139/64 (89) 95 01/27/18 05:10 97.3 71 17 125/74 (91) 98 01/27/18 04:00 72 01/27/18 00:14 81 01/27/18 00:09 100.1 82 17 132/74 (93) 97 01/26/18 20:22 100.4 89 16 121/74 (90) 98 01/26/18 20:00 77 01/26/18 19:00 Room Air 01/26/18 18:00 97.6 80 18 116/66 (83) 96 01/26/18 16:00 66 01/26/18 13:43 18 01/26/18 12:59 97.5 89 20 113/67 (82) 98 01/26/18 12:59 98 Room Air I/O 01/26/18 01/26/18 01/26/18 01/27/18 01/27/18 01/27/18 07:00 15:00 23:00 07:00 15:00 23:00 Intake Total 600 ml 360 ml 770 ml 770 ml Output Total 1400 ml 650 ml 600 ml Balance -800 ml -290 ml 770 ml 170 ml Intake Oral 600 ml 360 ml 720 ml 720 ml IV Total 50 ml 50 ml Output Urine Total 1400 ml 650 ml 600 ml Result Diagram: 01/27/18 0500 01/26/18 0400 Objective Remarks GENERAL: NAD, A&Ox3 HEAD: Normocephalic. NECK: Supple, trachea midline. No lymphadenopathy. EYES: No scleral icterus. No injection or drainage. CARDIOVASCULAR: Regular rate and rhythm without murmurs, gallops, or rubs. RESPIRATORY: Breath sounds equal bilaterally. No accessory muscle use. GASTROINTESTINAL: Abdomen soft, non-tender, nondistended. MUSCULOSKELETAL: No cyanosis, or edema. SKIN: Warm and dry. NEURO: No focal neurological deficitis. A/P Problem List: (1) Endometrial cancer ICD Code: C54.1 - Malignant neoplasm of endometrium Status: Chronic (2) Hypercoagulable state ICD Code: D68.59 - Other primary thrombophilia (3) Bilateral pulmonary embolism ICD Code: I26.99 - Other pulmonary embolism without acute cor pulmonale Status: Acute (4) DVT of leg (deep venous thrombosis) ICD Code: I82.409 - Acute embolism and thrombosis of unspecified deep veins of unspecified lower extremity Status: Acute Assessment and Plan 62-year-old female admitted secondary to bilateral pulmonary emboli and right lower extremity DVT Pain and swelling have not improved through time on Lovenox. Lovenox failure likely present. Lovenox is discontinued and patient is resumed back on heparin. Will monitor for improvement in symptoms before trying another agent. Right lower extremity DVT Bilateral pulmonary emboli Currently on heparin No renal disease Patient might be considered for newer anticoagulant treatments such as Eliquis Hematology consulted Endometrial cancer Gynecology following Continue treatments as recommended Continue pain treatments Hypertension Continue baseline treatment Follow blood pressures Adjust treatments as needed Hyperglycemia Follow blood sugars Insulin sliding scale Diabetic diet Probable obstructive sleep apnea recommend outpatient sleep study Gastroesophageal reflux disease Nausea ranitidine and antinausea medication continued DVT prophylaxis Heparin Problem Qualifiers (1) DVT of leg (deep venous thrombosis): Qualified Codes: I82.491 - Acute embolism and thrombosis of other specified deep vein of right lower extremity Gilmar Shafer MD Jan 27, 2018 12:10
[2018-01-27] MEDS: HEPARIN-D5W 25,000 U/250 ML 250 ML IV PRN (13:17)
[2018-01-27 13:47] LABS: INTERNATIONAL NORMALIZED RATIO 1.3 RATIO; PROTHROMBIN TIME - PATIENT 12.7 SEC (9.8-11.6)
[2018-01-27] MEDS: IBUPROFEN 400 MG TAB PO PRN (17:52)
[2018-01-27] MEDS ORDERED: ACETAMINOPHEN 325 MG TAB PO ONE (18:15)
[2018-01-28] VITALS (11 sets, daily range): BP systolic 111–132; BP diastolic 59–68; PULSE 66–94; RESP 16–20; TEMP 97.9–99.4; O2SAT 94–97
[2018-01-28] MEDS: PIPERACIL-TAZO 3.375 GM PREMIX 50 ML IV SCH ×4 (01:18→20:20)
[2018-01-28] MEDS: MORPHINE SULFATE 4 MG/ML INJ IV PRN ×5 (01:28→22:32)
[2018-01-28] MEDS: HEPARIN-D5W 25,000 U/250 ML 250 ML IV PRN ×2 (03:05→15:58)
[2018-01-28] MEDS: oxyCODONE/ACETAMINOPHEN 10 MG/325 MG TAB PO PRN ×4 (05:06→21:12)
[2018-01-28 05:38] LABS: HEMATOCRIT 24.7 % (35.0-46.0); MEAN CELL VOLUME 79.5 FL (80.0-100.0); MEAN CORPUSCULAR HEMOGLOBIN 25.7 PG (27.0-34.0); MEAN CORPUSCULAR HGB CONC 32.4 % (32.0-36.0); MEAN PLATELET VOLUME 7.3 FL (7.0-11.0); PLATELET COUNT 302 TH/MM3 (150-450); RED CELL DISTRIBUTION WIDTH 19.9 % (11.6-17.2); WHITE BLOOD COUNT 13.5 TH/MM3 (4.0-11.0)
[2018-01-28 05:54] LABS: INTERNATIONAL NORMALIZED RATIO 1.2 RATIO; PROTHROMBIN TIME - PATIENT 12.6 SEC (9.8-11.6)
--- NOTE | 2018-01-28 07:51 | PD.ONC.PN ---
Subjective Subjective Remarks document processor/onc progress note patient resting in bed states pain and swelling in leg has improved since the Heparin gtt was restarted no complaints has been OOB ambulating Objective Data Date Time Temp Pulse Resp B/P (MAP) Pulse Ox O2 Delivery O2 Flow Rate FiO2 01/28/18 07:42 96 21 01/28/18 07:23 67 01/28/18 05:02 97.9 71 17 123/65 (84) 97 01/28/18 04:00 70 01/28/18 00:00 70 01/28/18 00:00 98.0 77 16 111/63 (79) 96 01/27/18 20:30 99.5 87 17 148/76 (100) 93 01/27/18 20:30 93 Room Air 01/27/18 20:00 83 01/27/18 19:59 97 21 01/27/18 17:40 155/73 (100) 01/27/18 17:36 102.5 89 18 161/78 (105) 99 01/27/18 16:00 80 01/27/18 13:52 Room Air 01/27/18 13:49 97 21 01/27/18 12:00 84 01/27/18 11:36 97.7 82 18 124/62 (82) 98 01/27/18 08:00 94 01/28/18 01/28/18 01/28/18 07:00 15:00 23:00 Intake Total 764 ml Output Total 1300 ml Balance -536 ml Result Diagram: 01/28/18 0500 01/26/18 0400 Laboratory Results Laboratory Tests Test 01/27/18 13:10 01/27/18 18:20 01/28/18 01:24 01/28/18 05:00 Prothrombin Time 12.7 SEC 12.6 SEC Prothromb Time International Ratio 1.3 RATIO 1.2 RATIO Activated Partial Thromboplast Time 31.3 SEC 37.1 SEC 36.7 SEC White Blood Count 13.5 TH/MM3 Red Blood Count 3.10 MIL/MM3 Hemoglobin 8.0 GM/DL Hematocrit 24.7 % Mean Corpuscular Volume 79.5 FL Mean Corpuscular Hemoglobin 25.7 PG Mean Corpuscular Hemoglobin Concent 32.4 % Red Cell Distribution Width 19.9 % Platelet Count 302 TH/MM3 Mean Platelet Volume 7.3 FL Imaging Studies Last Impressions Lower Extremity Ultrasound 01/26/18 0000 Signed Impressions: CONCLUSION: 1. Extensive right lower extremity occlusive DVT. Chest X-Ray 01/22/18 1240 Signed Impressions: CONCLUSION: The lungs are clear. [id number] in good position. CT Angiography 01/22/18 0000 Signed Impressions: CONCLUSION: 1. Bilateral subsegmental and segmental pulmonary emboli. 2. No evidence of acute airspace disease 3. Prominent liver and spleen. Administered Medications Medications (Trade) Dose Ordered Sig/Paul Route PRN Reason Start Time Stop Time Status Last Admin Dose Admin Acetaminophen (Tylenol) 650 mg Q4H PRN PO TEMP > 100.4 01/22/18 16:30 01/26/18 20:42 Ondansetron HCl (Zofran Odt) 4 mg Q6H PRN PO NAUSEA/VOMITING 01/22/18 17:45 01/27/18 09:48 Ibuprofen (Motrin) 400 mg Q6H PRN PO PAIN SCALE 1 TO 2 01/22/18 16:30 01/27/18 17:52 Morphine Sulfate (Morphine Inj) 4 mg Q3H PRN IV BREAKTHROUGH PAIN 01/22/18 17:45 01/28/18 01:28 Senna/Docusate Sodium (Irene-Colace) 1 tab BID PO 01/22/18 21:00 01/27/18 20:48 Magnesium Hydroxide (Milk Of Magnesia Liq) 30 ml Q12H PRN PO Mild constipation 01/22/18 16:30 01/26/18 20:31 Lactulose (Lactulose Liq) 30 ml DAILY PRN PO SEVERE CONSITIPATION 01/22/18 16:30 01/27/18 07:47 Sodium Chloride (NS Flush) 2 ml BID IV FLUSH 01/22/18 21:00 01/27/18 20:50 Clonidine (Catapres) 0.1 mg BID PO 01/22/18 21:00 01/27/18 20:47 Prochlorperazine Edisylate (Compazine Inj) 10 mg Q6H PRN IV PUSH NAUSEA/VOMITING 01/22/18 16:45 01/27/18 11:39 Insulin Aspart (NovoLOG SUPPLEMENTAL SCALE) 1 ACHS SLIDING SCALE SQ 01/22/18 17:00 01/27/18 20:48 Cyanocobalamin (Vitamin B12) 1,000 mcg DAILY PO 01/23/18 09:00 01/27/18 07:27 Famotidine (Pepcid) 20 mg BID PO 01/22/18 21:00 01/27/18 20:48 Lidocaine/ Prilocaine (Emla Cream) TO PORT SITE UNSCH PRN TOPICAL ACCESSING IVAD 01/22/18 22:00 01/22/18 23:27 Oxycodone/ Acetaminophen (Percocet 5-325 Mg) 1 tab Q4H PRN PO PAIN SCALE 3 TO 5 01/23/18 14:30 01/25/18 12:57 Oxycodone/ Acetaminophen (Percocet 10-325 Mg) 1 tab Q4H PRN PO PAIN SCALE 6 TO 10 01/23/18 14:30 01/28/18 05:06 Piperacillin Sod/ Tazobactam Sod 50 ml @ 100 mls/hr Q6H IV 01/25/18 02:00 01/28/18 01:18 Heparin Sodium/ Dextrose 250 ml @ 17 mls/hr TITRATE PRN IV Coagulation Management 01/27/18 12:00 01/28/18 03:05 Objective Remarks GENERAL: Well-nourished, well-developed patient. in NAD SKIN: Warm and dry. HEAD: Normocephalic. EYES: No scleral icterus. No injection or drainage. CARDIOVASCULAR: Regular rate and rhythm without murmurs. RESPIRATORY: Breath sounds equal bilaterally. No accessory muscle use. EXTREMITIES: right leg + swelling MUSCULOSKELETAL: Adequate muscle tone. NEUROLOGICAL: No obvious focal deficit. Awake, alert, and oriented x3. PSYCHIATRIC: Appropriate mood and affect; insight and judgment normal. Assessment/Plan Problem List: (1) DVT of leg (deep venous thrombosis) ICD Codes: I82.409 - Acute embolism and thrombosis of unspecified deep veins of unspecified lower extremity Status: Acute Plan: Hem/Onc following: Dr. Riddle to assist with DVT/PE anticoagulation, currently on Heparin gtt recommending SQ Lovenox 1mg/kg BID We thank Dr. Riddle for her assistance in care of Ms. Pérez 01/28/18: patient restarted on Heparin gtt d/t increased leg pain and swelling on Lovenox (2) Bilateral pulmonary embolism ICD Codes: I26.99 - Other pulmonary embolism without acute cor pulmonale Status: Acute (3) Endometrial cancer ICD Codes: C54.1 - Malignant neoplasm of endometrium Status: Chronic Plan: start cycle 1 Doxil with Carboplatin once discharged monitor weekly labs as scheduled : pt will restart IV chemo upon discharge Assessment Problem Qualifiers (1) DVT of leg (deep venous thrombosis): Qualified Codes: I82.491 - Acute embolism and thrombosis of other specified deep vein of right lower extremity Cara Dalton Jan 28, 2018 07:51
[2018-01-28] MEDS: INSULIN ASPART SUPPLEMENTAL SCALE SQ SCH ×4 (08:58→20:32)
[2018-01-28] MEDS: DOCUSATE SODIUM 50 MG/SENNA 8.6 MG TAB PO SCH ×2 (08:59→20:20)
[2018-01-28] MEDS: CYANOCOBALAMIN 1,000 MCG TAB PO SCH (08:59)
[2018-01-28] MEDS: oxyCODONE/ACETAMINOPHEN 5 MG/325 MG TAB PO PRN (08:59)
[2018-01-28] MEDS: FAMOTIDINE 20 MG TAB PO SCH ×2 (08:59→20:20)
[2018-01-28] MEDS: cloNIDine HCL 0.1 MG TAB PO SCH ×2 (09:00→20:20)
[2018-01-28] MEDS: SODIUM CHLORIDE 0.9% FLUSH 10 ML FLUSH IV FLUSH SCH ×2 (09:02→20:20)
--- NOTE | 2018-01-28 14:29 | HHI.PR ---
Subjective Remarks Patient reports the right leg swelling and pain is slightly improved. No shortness of breath. Objective Vitals Vital Signs Date Time Temp Pulse Resp B/P (MAP) Pulse Ox O2 Delivery O2 Flow Rate FiO2 01/28/18 11:37 99.0 66 18 113/59 (77) 94 01/28/18 11:24 91 01/28/18 10:44 Room Air 01/28/18 09:03 98.8 82 18 130/68 (88) 97 01/28/18 07:42 96 21 01/28/18 07:23 67 01/28/18 05:02 97.9 71 17 123/65 (84) 97 01/28/18 04:00 70 01/28/18 00:00 70 01/28/18 00:00 98.0 77 16 111/63 (79) 96 01/27/18 20:30 99.5 87 17 148/76 (100) 93 01/27/18 20:30 93 Room Air 01/27/18 20:00 83 01/27/18 19:59 97 21 01/27/18 17:40 155/73 (100) 01/27/18 17:36 102.5 89 18 161/78 (105) 99 01/27/18 16:00 80 I/O 01/27/18 01/27/18 01/27/18 01/28/18 01/28/18 01/28/18 07:00 15:00 23:00 07:00 15:00 23:00 Intake Total 770 ml 100 ml 50 ml 764 ml 50 ml Output Total 600 ml 600 ml 1300 ml Balance 170 ml -500 ml 50 ml -536 ml 50 ml Intake Oral 720 ml 600 ml IV Total 50 ml 100 ml 50 ml 164 ml 50 ml Output Urine Total 600 ml 600 ml 1300 ml Result Diagram: 01/28/18 0500 01/26/18 0400 Objective Remarks GENERAL: This is a well-nourished, well-developed patient, in no apparent distress. CARDIOVASCULAR: Normal rate and regular rhythm without murmurs, gallops, or rubs. RESPIRATORY: Good respiratory efforts. Breath sounds equal and clear to auscultation bilaterally. GASTROINTESTINAL: Abdomen soft, non-tender, non-distended. Normal active bowel sounds MUSCULOSKELETAL: Right lower extremity with tense edema. NEURO: Alert & Oriented x4 to person, place, time, situation. Moves all ext x4 PSYCH: Appropriate mood and affect. A/P Problem List: (1) Hypercoagulable state ICD Code: D68.59 - Other primary thrombophilia (2) Hypertension ICD Code: I10 - Essential (primary) hypertension (3) Morbid obesity ICD Code: E66.01 - Morbid (severe) obesity due to excess calories (4) Endometrial cancer ICD Code: C54.1 - Malignant neoplasm of endometrium Status: Chronic (5) Bilateral pulmonary embolism ICD Code: I26.99 - Other pulmonary embolism without acute cor pulmonale Status: Acute (6) DVT of leg (deep venous thrombosis) ICD Code: I82.409 - Acute embolism and thrombosis of unspecified deep veins of unspecified lower extremity Status: Acute Assessment and Plan 62-year-old female admitted secondary to bilateral pulmonary emboli and right lower extremity DVT Patient initially transitioned to Lovenox. However symptoms were worsening. She was transitioned back to heparin. Right lower extremity DVT Bilateral pulmonary emboli Currently on heparin No renal disease Appreciate hematology following. Hematology considering treating with Edoxaban Endometrial cancer Gynecology following Continue treatments as recommended Continue pain treatments Hypertension Continue baseline treatment Follow blood pressures Adjust treatments as needed Hyperglycemia Follow blood sugars Insulin sliding scale Diabetic diet Probable obstructive sleep apnea recommend outpatient sleep study Gastroesophageal reflux disease Nausea ranitidine and antinausea medication continued DVT prophylaxis Heparin Discharge Planning Can be discharged once definite plan for oral anticoagulant. Appreciate Hematology input. Problem Qualifiers (1) DVT of leg (deep venous thrombosis): Qualified Codes: I82.491 - Acute embolism and thrombosis of other specified deep vein of right lower extremity Luis Miguel Leblanc MD Jan 28, 2018 14:29
[2018-01-28] MEDS: LACTULOSE SYRUP 20 GM/30 ML CUP PO PRN (15:20)
[2018-01-28] MEDS: ONDANSETRON ODT 4 MG TAB PO PRN (16:58)
[2018-01-28] MEDS: SODIUM CHLORIDE 0.9% FLUSH 10 ML FLUSH IV FLUSH PRN (22:33)
[2018-01-29] VITALS (15 sets, daily range): BP systolic 103–131; BP diastolic 48–69; PULSE 61–99; RESP 16–18; TEMP 97.4–100; O2SAT 94–98
[2018-01-29] MEDS: IBUPROFEN 400 MG TAB PO PRN (00:10)
[2018-01-29] MEDS: oxyCODONE/ACETAMINOPHEN 10 MG/325 MG TAB PO PRN ×6 (01:12→22:54)
[2018-01-29] MEDS: PIPERACIL-TAZO 3.375 GM PREMIX 50 ML IV SCH ×2 (01:16→08:28)
[2018-01-29] MEDS: MORPHINE SULFATE 4 MG/ML INJ IV PRN ×6 (03:36→23:57)
[2018-01-29] MEDS: HEPARIN-D5W 25,000 U/250 ML 250 ML IV PRN ×2 (03:43→15:02)
[2018-01-29 07:12] LABS: INTERNATIONAL NORMALIZED RATIO 1.2 RATIO; PROTHROMBIN TIME - PATIENT 12.1 SEC (9.8-11.6)
[2018-01-29] MEDS: INSULIN ASPART SUPPLEMENTAL SCALE SQ SCH ×4 (08:00→21:26)
[2018-01-29] MEDS: FAMOTIDINE 20 MG TAB PO SCH ×2 (08:22→20:35)
[2018-01-29] MEDS: DOCUSATE SODIUM 50 MG/SENNA 8.6 MG TAB PO SCH ×2 (08:22→20:36)
[2018-01-29] MEDS: cloNIDine HCL 0.1 MG TAB PO SCH ×2 (08:22→20:36)
[2018-01-29] MEDS: SODIUM CHLORIDE 0.9% FLUSH 10 ML FLUSH IV FLUSH SCH ×2 (08:22→20:31)
[2018-01-29] MEDS: CYANOCOBALAMIN 1,000 MCG TAB PO SCH (08:23)
[2018-01-29] MEDS: ONDANSETRON ODT 4 MG TAB PO PRN (08:28)
[2018-01-29] MEDS: LACTULOSE SYRUP 20 GM/30 ML CUP PO PRN (08:42)
[2018-01-29] MEDS: MAGNESIUM HYDROXIDE SUSP 30 ML CUP PO PRN (08:43)
--- NOTE | 2018-01-29 09:55 | HHI.PR ---
Subjective Remarks Patient reports constipation today. Otherwise states she is feeling okay. Still has swelling of the right leg. Objective Vitals Vital Signs Date Time Temp Pulse Resp B/P (MAP) Pulse Ox O2 Delivery O2 Flow Rate FiO2 01/29/18 09:29 97 01/29/18 09:24 77 01/29/18 08:36 Room Air 01/29/18 08:30 97.9 73 16 103/52 (69) 97 01/29/18 04:04 61 01/29/18 03:14 97.4 66 18 124/67 (86) 97 01/29/18 00:10 99.7 94 18 126/69 (88) 96 01/29/18 00:09 96 01/28/18 20:13 80 01/28/18 20:00 Room Air 01/28/18 19:33 99.1 94 18 130/64 (86) 97 01/28/18 17:13 99.4 80 20 132/67 (88) 94 01/28/18 11:37 99.0 66 18 113/59 (77) 94 01/28/18 11:24 91 01/28/18 10:44 Room Air I/O 01/28/18 01/28/18 01/28/18 01/29/18 01/29/18 01/29/18 07:00 15:00 23:00 07:00 15:00 23:00 Intake Total 764 ml 50 ml 805 ml 785 ml Output Total 1300 ml 1200 ml 800 ml Balance -536 ml 50 ml -395 ml -15 ml Intake Oral 600 ml 750 ml 480 ml IV Total 164 ml 50 ml 55 ml 305 ml Output Urine Total 1300 ml 1200 ml 800 ml # Voids 7 Result Diagram: 01/28/18 0500 01/26/18 0400 Objective Remarks GENERAL: This is a well-nourished, well-developed patient, in no apparent distress. CARDIOVASCULAR: Normal rate and regular rhythm without murmurs, gallops, or rubs. RESPIRATORY: Good respiratory efforts. Breath sounds equal and clear to auscultation bilaterally. GASTROINTESTINAL: Abdomen soft, non-tender, non-distended. Normal active bowel sounds MUSCULOSKELETAL: Right lower extremity with tense edema. NEURO: Alert & Oriented x4 to person, place, time, situation. Moves all ext x4 PSYCH: Appropriate mood and affect. A/P Problem List: (1) Hypercoagulable state ICD Code: D68.59 - Other primary thrombophilia (2) Hypertension ICD Code: I10 - Essential (primary) hypertension (3) Morbid obesity ICD Code: E66.01 - Morbid (severe) obesity due to excess calories (4) Endometrial cancer ICD Code: C54.1 - Malignant neoplasm of endometrium Status: Chronic (5) Bilateral pulmonary embolism ICD Code: I26.99 - Other pulmonary embolism without acute cor pulmonale Status: Acute (6) DVT of leg (deep venous thrombosis) ICD Code: I82.409 - Acute embolism and thrombosis of unspecified deep veins of unspecified lower extremity Status: Acute Assessment and Plan 62-year-old female admitted secondary to bilateral pulmonary emboli and right lower extremity DVT Right lower extremity DVT Bilateral pulmonary emboli Currently on heparin. Discussed with hop weigher, Dr. Riddle. Plan to discharge the patient on Edoxaban tomorrow or afternoon. No renal disease Appreciate hematology following. Discussed with case management to ensure the patient can obtain this medication. Endometrial cancer Gynecology following Continue treatments as recommended Continue pain treatments Hypertension Continue baseline treatment Follow blood pressures Adjust treatments as needed Hyperglycemia Follow blood sugars Insulin sliding scale Diabetic diet Probable obstructive sleep apnea recommend outpatient sleep study Gastroesophageal reflux disease Nausea ranitidine and antinausea medication continued Constipation: - Lactulose. Discharge Planning Plan for discharge tomorrow afternoon. Needs a wheelchair and walker. Problem Qualifiers (1) DVT of leg (deep venous thrombosis): Qualified Codes: I82.491 - Acute embolism and thrombosis of other specified deep vein of right lower extremity Luis Miguel Leblanc MD Jan 29, 2018 09:55
--- NOTE | 2018-01-29 10:13 | PD.ONC.PN ---
Subjective Subjective Remarks Resting comfortably in bed. Still reports pain in her right leg. Objective Data Date Time Temp Pulse Resp B/P (MAP) Pulse Ox O2 Delivery O2 Flow Rate FiO2 01/29/18 09:29 97 01/29/18 09:24 77 01/29/18 08:36 Room Air 01/29/18 08:30 97.9 73 16 103/52 (69) 97 01/29/18 04:04 61 01/29/18 03:14 97.4 66 18 124/67 (86) 97 01/29/18 00:10 99.7 94 18 126/69 (88) 96 01/29/18 00:09 96 01/28/18 20:13 80 01/28/18 20:00 Room Air 01/28/18 19:33 99.1 94 18 130/64 (86) 97 01/28/18 17:13 99.4 80 20 132/67 (88) 94 01/28/18 11:37 99.0 66 18 113/59 (77) 94 01/28/18 11:24 91 01/28/18 10:44 Room Air 01/29/18 01/29/18 01/29/18 07:00 15:00 23:00 Intake Total 785 ml Output Total 800 ml Balance -15 ml Result Diagram: 01/28/18 0500 01/26/18 0400 Laboratory Results Laboratory Tests Test 01/28/18 10:40 01/28/18 17:05 01/29/18 00:25 01/29/18 06:45 Activated Partial Thromboplast Time 34.3 SEC 33.5 SEC 34.4 SEC 39.0 SEC Prothrombin Time 12.1 SEC Prothromb Time International Ratio 1.2 RATIO Administered Medications Medications (Trade) Dose Ordered Sig/Paul Route PRN Reason Start Time Stop Time Status Last Admin Dose Admin Acetaminophen (Tylenol) 650 mg Q4H PRN PO TEMP > 100.4 01/22/18 16:30 01/26/18 20:42 Ondansetron HCl (Zofran Odt) 4 mg Q6H PRN PO NAUSEA/VOMITING 01/22/18 17:45 01/29/18 08:28 Ibuprofen (Motrin) 400 mg Q6H PRN PO PAIN SCALE 1 TO 2 01/22/18 16:30 01/29/18 00:10 Morphine Sulfate (Morphine Inj) 4 mg Q3H PRN IV BREAKTHROUGH PAIN 01/22/18 17:45 01/29/18 06:50 Senna/Docusate Sodium (Irene-Colace) 1 tab BID PO 01/22/18 21:00 01/29/18 08:22 Magnesium Hydroxide (Milk Of Magnesia Liq) 30 ml Q12H PRN PO Mild constipation 01/22/18 16:30 01/29/18 08:43 Lactulose (Lactulose Liq) 30 ml DAILY PRN PO SEVERE CONSITIPATION 01/22/18 16:30 01/29/18 08:42 Sodium Chloride (NS Flush) 2 ml UNSCH PRN IV FLUSH FLUSH AFTER USING IV ACCESS 01/22/18 16:30 01/28/18 22:33 Sodium Chloride (NS Flush) 2 ml BID IV FLUSH 01/22/18 21:00 01/28/18 20:20 Clonidine (Catapres) 0.1 mg BID PO 01/22/18 21:00 01/29/18 08:22 Prochlorperazine Edisylate (Compazine Inj) 10 mg Q6H PRN IV PUSH NAUSEA/VOMITING 01/22/18 16:45 01/27/18 11:39 Insulin Aspart (NovoLOG SUPPLEMENTAL SCALE) 1 ACHS SLIDING SCALE SQ 01/22/18 17:00 01/28/18 20:32 Cyanocobalamin (Vitamin B12) 1,000 mcg DAILY PO 01/23/18 09:00 01/29/18 08:23 Famotidine (Pepcid) 20 mg BID PO 01/22/18 21:00 01/29/18 08:22 Lidocaine/ Prilocaine (Emla Cream) TO PORT SITE UNSCH PRN TOPICAL ACCESSING IVAD 01/22/18 22:00 01/22/18 23:27 Oxycodone/ Acetaminophen (Percocet 5-325 Mg) 1 tab Q4H PRN PO PAIN SCALE 3 TO 5 01/23/18 14:30 01/28/18 08:59 Oxycodone/ Acetaminophen (Percocet 10-325 Mg) 1 tab Q4H PRN PO PAIN SCALE 6 TO 10 01/23/18 14:30 01/29/18 09:40 Piperacillin Sod/ Tazobactam Sod 50 ml @ 100 mls/hr Q6H IV 01/25/18 02:00 01/29/18 08:28 Heparin Sodium/ Dextrose 250 ml @ 17 mls/hr TITRATE PRN IV Coagulation Management 01/27/18 12:00 01/29/18 03:43 Objective Remarks GENERAL: Well-nourished, well-developed patient. SKIN: Warm and dry. HEAD: Normocephalic. EYES: No scleral icterus. No injection or drainage. NECK: Supple, trachea midline. No JVD or lymphadenopathy. LYMPHATIC: No adenopathy. CARDIOVASCULAR: Regular rate and rhythm without murmurs. RESPIRATORY: No accessory muscle use. GASTROINTESTINAL: Abdomen soft, non-tender, nondistended. EXTREMITIES: No cyanosis, or edema. MUSCULOSKELETAL: Adequate muscle tone. NEUROLOGICAL: No obvious focal deficit. Awake, alert, and oriented x3. PSYCHIATRIC: Appropriate mood and affect; insight and judgment normal. Assessment/Plan Problem List: (1) DVT of leg (deep venous thrombosis) ICD Codes: I82.409 - Acute embolism and thrombosis of unspecified deep veins of unspecified lower extremity Status: Acute Plan: Hem/Onc following: Dr. Riddle to assist with DVT/PE anticoagulation, currently on Heparin gtt recommending SQ Lovenox 1mg/kg BID We thank Dr. Riddle for her assistance in care of Ms. Pérez 01/28/18: patient restarted on Heparin gtt d/t increased leg pain and swelling on Lovenox (2) Bilateral pulmonary embolism ICD Codes: I26.99 - Other pulmonary embolism without acute cor pulmonale Status: Acute (3) Endometrial cancer ICD Codes: C54.1 - Malignant neoplasm of endometrium Status: Chronic Plan: start cycle 1 Doxil with Carboplatin once discharged monitor weekly labs as scheduled : pt will restart IV chemo upon discharge Assessment 1. Metastatic endometrial cancer: continues to follow under the care of Dr. Gibson for chemotherapy administration. 2. Anemia: multifactorial. inflammatory component in addition to bone marrow suppression from chemotherapy. continue to trend. Will check iron profile, B12 , folate 3. VTE: due to malignancy. worsened pain and swelling while on lovenox therapy. She was restarted on heparin gtt this weekend. Creatinine clearance approxmately 100. Reviewed medications. No drug-drug interactions exist. Will plan to start on edoxaban 60 mg PO Qdaily in the outpatient setting. Will ensure that this medication is approved and ready to be picked up from pharmacy upon hospital discharge. Discussed risks vs benefits of therapy with this DOAC including risk of bleeding. 4. Pain due to VTE: currently controlled on morphine therapy. Will need to have good pain medication regimen in place on hospital discharge. 5. DME: patient requests walker and wheelchair upon discharge to assist with walking around house while leg improves on anticoagulaiton. Problem Qualifiers (1) DVT of leg (deep venous thrombosis): Qualified Codes: I82.491 - Acute embolism and thrombosis of other specified deep vein of right lower extremity Mely Riddle MD Jan 29, 2018 10:13
[2018-01-29] MEDS ORDERED: SOD PHOSPHATE/SOD BIPHOSPHATE (ADULT) ENEMA 133ML RECTAL ONE (14:00)
[2018-01-29] MEDS: PROCHLORPERAZINE INJ 10 MG/2 ML VIAL IV PUSH PRN (14:28)
[2018-01-29] MEDS ORDERED: WHEEMIS3 (15:26)
[2018-01-29] MEDS ORDERED: WALKER WHEELS/F1 MIS (15:27)
[2018-01-29] MEDS: SODIUM CHLORIDE 0.9% FLUSH 10 ML FLUSH IV FLUSH PRN (23:59)
[2018-01-30] VITALS (10 sets, daily range): BP systolic 121–145; BP diastolic 58–84; PULSE 79–108; RESP 16–18; TEMP 98.6–100.2; O2SAT 7–100
[2018-01-30] MEDS: HEPARIN-D5W 25,000 U/250 ML 250 ML IV PRN ×2 (00:17→18:44)
[2018-01-30] MEDS: oxyCODONE/ACETAMINOPHEN 10 MG/325 MG TAB PO PRN ×5 (03:24→21:07)
[2018-01-30] MEDS: SODIUM CHLORIDE 0.9% FLUSH 10 ML FLUSH IV FLUSH PRN (04:54)
[2018-01-30] MEDS: MORPHINE SULFATE 4 MG/ML INJ IV PRN ×2 (04:54→09:53)
[2018-01-30 07:28] LABS: INTERNATIONAL NORMALIZED RATIO 1.1 RATIO; PROTHROMBIN TIME - PATIENT 11.4 SEC (9.8-11.6)
[2018-01-30 07:48] LABS: IRON (FE) 17 MCG/DL (50-170)
[2018-01-30] MEDS: INSULIN ASPART SUPPLEMENTAL SCALE SQ SCH ×4 (08:00→21:07)
[2018-01-30 08:13] LABS: % SATURATION IRON PROFILE 9.6 % (20-50); FERRITIN 790 NG/ML (8-252); FOLATE 19.8 NG/ML (3.1-17.5); TOTAL IRON BINDING CAPACITY 176 MCG/DL (250-450)
[2018-01-30] MEDS: FAMOTIDINE 20 MG TAB PO SCH ×2 (08:49→21:02)
[2018-01-30] MEDS: CYANOCOBALAMIN 1,000 MCG TAB PO SCH (08:49)
[2018-01-30] MEDS: SODIUM CHLORIDE 0.9% FLUSH 10 ML FLUSH IV FLUSH SCH ×2 (08:49→21:00)
[2018-01-30] MEDS: DOCUSATE SODIUM 50 MG/SENNA 8.6 MG TAB PO SCH ×2 (08:49→21:02)
[2018-01-30] MEDS: cloNIDine HCL 0.1 MG TAB PO SCH ×2 (08:49→21:02)
--- NOTE | 2018-01-30 13:30 | HHI.PR ---
Subjective Remarks Patient continues to have significant right lower extremity pain. Swelling is essentially unchanged. She has been using IV morphine for breakthrough. Objective Vitals Vital Signs Date Time Temp Pulse Resp B/P (MAP) Pulse Ox O2 Delivery O2 Flow Rate FiO2 01/30/18 12:00 99.5 129/76 (93) 97 01/30/18 11:55 97 01/30/18 08:00 99.8 89 18 01/30/18 08:00 134/84 (101) 97 01/30/18 07:00 Room Air 01/30/18 04:07 87 01/30/18 03:25 100.2 88 18 121/62 (81) 100 01/30/18 00:18 16 01/30/18 00:03 79 01/29/18 23:51 99.5 78 18 113/48 (69) 96 01/29/18 20:54 97 21 01/29/18 20:30 Room Air 01/29/18 20:29 99.8 99 18 131/68 (89) 98 01/29/18 20:11 85 01/29/18 16:40 100.0 78 18 129/49 (75) 94 01/29/18 16:00 87 I/O 01/29/18 01/29/18 01/29/18 01/30/18 01/30/18 01/30/18 07:00 15:00 23:00 07:00 15:00 23:00 Intake Total 785 ml 360 ml 560 ml 490 ml Output Total 800 ml 250 ml 800 ml Balance -15 ml 360 ml 310 ml -310 ml Intake Oral 480 ml 360 ml 560 ml 240 ml IV Total 305 ml 250 ml Output Urine Total 800 ml 250 ml 800 ml # Voids 4 # Bowel Movements 2 0 Result Diagram: 01/28/18 0500 01/26/18 0400 Objective Remarks GENERAL: This is a well-nourished, well-developed patient, in no apparent distress. CARDIOVASCULAR: Normal rate and regular rhythm without murmurs, gallops, or rubs. RESPIRATORY: Good respiratory efforts. Breath sounds equal and clear to auscultation bilaterally. GASTROINTESTINAL: Abdomen soft, non-tender, non-distended. Normal active bowel sounds MUSCULOSKELETAL: Right lower extremity with tense edema. NEURO: Alert & Oriented x4 to person, place, time, situation. Moves all ext x4 PSYCH: Appropriate mood and affect. A/P Problem List: (1) Hypercoagulable state ICD Code: D68.59 - Other primary thrombophilia (2) Hypertension ICD Code: I10 - Essential (primary) hypertension (3) Morbid obesity ICD Code: E66.01 - Morbid (severe) obesity due to excess calories (4) Endometrial cancer ICD Code: C54.1 - Malignant neoplasm of endometrium Status: Chronic (5) Bilateral pulmonary embolism ICD Code: I26.99 - Other pulmonary embolism without acute cor pulmonale Status: Acute (6) DVT of leg (deep venous thrombosis) ICD Code: I82.409 - Acute embolism and thrombosis of unspecified deep veins of unspecified lower extremity Status: Acute Assessment and Plan 62-year-old female admitted secondary to bilateral pulmonary emboli and right lower extremity DVT Right lower extremity DVT Bilateral pulmonary emboli Currently on heparin. Discussed with lab courier, Dr. Riddle. Plan to discharge the patient on Edoxaban. She continues to experience significant amount of pain in the swelling has not improved much. Need to have better pain control regimen prior to discharge. Will add long-acting morphine. Keep Percocet as needed for breakthrough. Reevaluate tomorrow morning. No renal disease Appreciate hematology following. Discussed with case management to ensure the patient can obtain this medication. Endometrial cancer Gynecology following Continue treatments as recommended Continue pain treatments Hypertension Continue baseline treatment Follow blood pressures Adjust treatments as needed Diabetes: New diagnosis Continue SSI with accucheck. Plan to DC on Metformin. Diabetic diet Probable obstructive sleep apnea recommend outpatient sleep study Gastroesophageal reflux disease Nausea ranitidine and antinausea medication continued Constipation: - Lactulose. Discharge Planning Possible DC tomorrow. Hopefully pain better controlled. Problem Qualifiers (1) DVT of leg (deep venous thrombosis): Qualified Codes: I82.491 - Acute embolism and thrombosis of other specified deep vein of right lower extremity Luis Miguel Leblanc MD Jan 30, 2018 13:30
[2018-01-30] MEDS: MORPHINE SULFATE 15 MG CONTROLLED RELEASE TAB PO SCH ×2 (14:31→22:02)
[2018-01-30] MEDS ORDERED: FUROSEMIDE 20 MG/2 ML VIAL IV PUSH ONE (14:45)
[2018-01-30] MEDS: MAGNESIUM HYDROXIDE SUSP 30 ML CUP PO PRN (21:01)
[2018-01-31] VITALS (8 sets, daily range): BP systolic 110–148; BP diastolic 48–73; PULSE 66–93; RESP 16–22; TEMP 97–99.9; O2SAT 93–98
[2018-01-31] MEDS: oxyCODONE/ACETAMINOPHEN 10 MG/325 MG TAB PO PRN ×4 (00:52→17:10)
[2018-01-31 03:52] LABS: HEMATOCRIT 21.8 % (35.0-46.0); HEMOGLOBIN 7.1 GM/DL (11.6-15.3); MEAN CELL VOLUME 78.9 FL (80.0-100.0); MEAN CORPUSCULAR HEMOGLOBIN 25.8 PG (27.0-34.0); MEAN CORPUSCULAR HGB CONC 32.7 % (32.0-36.0); MEAN PLATELET VOLUME 6.7 FL (7.0-11.0); PLATELET COUNT 323 TH/MM3 (150-450); RED BLOOD COUNT 2.76 MIL/MM3 (4.00-5.30); RED CELL DISTRIBUTION WIDTH 19.7 % (11.6-17.2); WHITE BLOOD COUNT 11.4 TH/MM3 (4.0-11.0)
[2018-01-31 04:09] LABS: INTERNATIONAL NORMALIZED RATIO 1.2 RATIO; PROTHROMBIN TIME - PATIENT 11.7 SEC (9.8-11.6)
[2018-01-31] MEDS: HEPARIN-D5W 25,000 U/250 ML 250 ML IV PRN ×2 (04:45→14:52)
[2018-01-31] MEDS: MORPHINE SULFATE 15 MG CONTROLLED RELEASE TAB PO SCH ×3 (05:32→22:19)
[2018-01-31] MEDS: cloNIDine HCL 0.1 MG TAB PO SCH ×2 (08:47→22:19)
[2018-01-31] MEDS: DOCUSATE SODIUM 50 MG/SENNA 8.6 MG TAB PO SCH ×2 (08:47→22:18)
[2018-01-31] MEDS: FAMOTIDINE 20 MG TAB PO SCH ×2 (08:47→22:18)
[2018-01-31] MEDS: CYANOCOBALAMIN 1,000 MCG TAB PO SCH (08:47)
[2018-01-31] MEDS: SODIUM CHLORIDE 0.9% FLUSH 10 ML FLUSH IV FLUSH SCH ×2 (08:49→22:22)
[2018-01-31] MEDS: INSULIN ASPART SUPPLEMENTAL SCALE SQ SCH ×4 (08:49→22:21)
[2018-01-31] MEDS ORDERED: EDOX1TAB5 PO (10:33)
[2018-01-31] MEDS ORDERED: MORP1TAB24 PO (10:33)
[2018-01-31] MEDS ORDERED: OXYC1TAB36 PO (10:33)
--- NOTE | 2018-01-31 10:41 | HHI.DCPOC ---
Discharge Care Plan Diagnosis: (1) Endometrial cancer (2) Hypercoagulable state (3) DVT of leg (deep venous thrombosis) (4) Diabetes (5) Bilateral pulmonary embolism (6) Morbid obesity Goals to Promote Your Health * To prevent worsening of your condition and complications * To maintain your health at the optimal level Directions to Meet Your Goals Take your medications as prescribed Follow your dietary instruction Follow activity as directed Keep your appointments as scheduled Take your immunizations and boosters as scheduled If your symptoms worsen call your PCP, if no PCP go to Urgent Care Center or Emergency Room Smoking is Dangerous to Your Health. Avoid second hand smoke Call the 24-hour hour crisis hotline for domestic abuse at Luis Miguel Leblanc MD Jan 31, 2018 10:41
[2018-01-31] MEDS ORDERED: SODIUM CHLOR 0.9% 250 ML INJ 250 ML IV ONE (10:45)
--- NOTE | 2018-01-31 11:42 | PD.ONC.PN ---
Subjective Subjective Remarks Afebrile overnight. Patient resting in bed. denies vaginal bleeding. wants to go home soon. Objective Data Date Time Temp Pulse Resp B/P (MAP) Pulse Ox O2 Delivery O2 Flow Rate FiO2 01/31/18 08:00 99.1 87 18 123/73 (90) 93 01/31/18 04:00 99.0 67 18 138/57 (84) 97 01/31/18 04:00 70 01/31/18 00:00 66 01/31/18 00:00 97.8 80 18 143/73 (96) 96 01/30/18 20:29 7 01/30/18 20:00 98 Room Air 01/30/18 20:00 99.2 108 18 145/58 (87) 98 01/30/18 20:00 86 01/30/18 16:00 98.6 136/82 (100) 97 01/30/18 12:00 99.5 129/76 (93) 97 01/30/18 11:55 97 01/31/18 01/31/18 01/31/18 07:00 15:00 23:00 Intake Total 260 ml Balance 260 ml Result Diagram: 01/31/18 0245 Laboratory Results Laboratory Tests Test 01/30/18 18:35 01/31/18 02:45 Activated Partial Thromboplast Time 44.1 SEC 38.2 SEC White Blood Count 11.4 TH/MM3 Red Blood Count 2.76 MIL/MM3 Hemoglobin 7.1 GM/DL Hematocrit 21.8 % Mean Corpuscular Volume 78.9 FL Mean Corpuscular Hemoglobin 25.8 PG Mean Corpuscular Hemoglobin Concent 32.7 % Red Cell Distribution Width 19.7 % Platelet Count 323 TH/MM3 Mean Platelet Volume 6.7 FL Prothrombin Time 11.7 SEC Prothromb Time International Ratio 1.2 RATIO Administered Medications Medications (Trade) Dose Ordered Sig/Paul Route PRN Reason Start Time Stop Time Status Last Admin Dose Admin Acetaminophen (Tylenol) 650 mg Q4H PRN PO TEMP > 100.4 01/22/18 16:30 01/26/18 20:42 Ondansetron HCl (Zofran Odt) 4 mg Q6H PRN PO NAUSEA/VOMITING 01/22/18 17:45 01/29/18 08:28 Ibuprofen (Motrin) 400 mg Q6H PRN PO PAIN SCALE 1 TO 2 01/22/18 16:30 01/29/18 00:10 Morphine Sulfate (Morphine Inj) 4 mg Q3H PRN IV Pain 6-10;if unable to take PO 01/22/18 17:45 01/30/18 09:53 Morphine Sulfate (Morphine Inj) 4 mg Q3H PRN IV BREAKTHROUGH PAIN 01/22/18 17:45 01/30/18 04:54 Senna/Docusate Sodium (Irene-Colace) 1 tab BID PO 01/22/18 21:00 01/31/18 08:47 Magnesium Hydroxide (Milk Of Magnesia Liq) 30 ml Q12H PRN PO Mild constipation 01/22/18 16:30 01/30/18 21:01 Bisacodyl (Dulcolax Supp) 10 mg DAILY PRN RECTAL SEVERE CONSITIPATION 01/22/18 16:30 01/29/18 12:08 Lactulose (Lactulose Liq) 30 ml DAILY PRN PO SEVERE CONSITIPATION 01/22/18 16:30 01/29/18 08:42 Sodium Chloride (NS Flush) 2 ml UNSCH PRN IV FLUSH FLUSH AFTER USING IV ACCESS 01/22/18 16:30 01/30/18 04:54 Sodium Chloride (NS Flush) 2 ml BID IV FLUSH 01/22/18 21:00 01/31/18 08:49 Clonidine (Catapres) 0.1 mg BID PO 01/22/18 21:00 01/31/18 08:47 Prochlorperazine Edisylate (Compazine Inj) 10 mg Q6H PRN IV PUSH NAUSEA/VOMITING 01/22/18 16:45 01/29/18 14:28 Insulin Aspart (NovoLOG SUPPLEMENTAL SCALE) 1 ACHS SLIDING SCALE SQ 01/22/18 17:00 01/31/18 08:49 Cyanocobalamin (Vitamin B12) 1,000 mcg DAILY PO 01/23/18 09:00 01/31/18 08:47 Famotidine (Pepcid) 20 mg BID PO 01/22/18 21:00 01/31/18 08:47 Lidocaine/ Prilocaine (Emla Cream) TO PORT SITE UNSCH PRN TOPICAL ACCESSING IVAD 01/22/18 22:00 01/22/18 23:27 Oxycodone/ Acetaminophen (Percocet 5-325 Mg) 1 tab Q4H PRN PO PAIN SCALE 3 TO 5 01/23/18 14:30 01/28/18 08:59 Oxycodone/ Acetaminophen (Percocet 10-325 Mg) 1 tab Q4H PRN PO PAIN SCALE 6 TO 10 01/23/18 14:30 01/31/18 08:48 Heparin Sodium/ Dextrose 250 ml @ 17 mls/hr TITRATE PRN IV Coagulation Management 01/27/18 12:00 01/31/18 04:45 Morphine Sulfate (Oramorph Sr) 15 mg Q8HR PO 01/30/18 14:00 01/31/18 05:32 Objective Remarks GENERAL: Middle aged female, lying in bed in nad. SKIN: Warm and dry. HEAD: Normocephalic. EYES: No injection or drainage. NECK: Supple, trachea midline. CARDIOVASCULAR: Regular rate and rhythm RESPIRATORY: Breath sounds equal bilaterally. No accessory muscle use. GASTROINTESTINAL: Abdomen distended, nontender EXTREMITIES: No cyanosis NEUROLOGICAL: awake and alert. normal speech. moving extremities. Assessment/Plan Assessment 62y/o female with metastatic endometrial cancer. Hematology consulted for DVT/PE Plan 1. DVT/PE: currently on heparin gtt. plan is to discharge on Edoxaban 60mg PO qd 2. Anemia: multifactorial d/t inflammation + chemotherapy. no obvious bleeding. agree with pRBC transfusion today. Attending Statement The exam, history, and the medical decision-making described in the above note were completed with the assistance of the mid-level provider. I reviewed and agree with the findings presented. I attest that I had a [id number] encounter with the patient on the same day, and personally performed and documented my assessment and findings in the medical record. 62 yoF with VTE and malignancy. Intolerant of lovenox injections. If able to obtain please have patient take endoxaban 60 mg Qdaily in the outpatient setting. If unable to obtain endoxaban please discharge patient on apixaban 5mg PO BID. Discussed risk, benefits and side effects of blood thinners with patient and husban. Jaylin Link Jan 31, 2018 11:42 Mely Riddle MD Jan 31, 2018 18:49
[2018-01-31] MEDS: MORPHINE SULFATE 4 MG/ML INJ IV PRN ×2 (11:51→22:20)
[2018-01-31] MEDS ORDERED: PERI PO (12:53)
[2018-01-31] MEDS ORDERED: METF500T PO (12:53)
[2018-01-31] MEDS ORDERED: GLUCMIS7 SQ (12:56)
[2018-01-31] MEDS ORDERED: LANCETS1 MI1 (12:57)
--- NOTE | 2018-01-31 12:57 | HHI.DS ---
Discharge Summary Admission Date Jan 22, 2018 at 16:15 Discharge Date: Jan 31, 2018 Admitting Diagnosis acute right leg DVT and bilateral PE, cancer patient (1) Hypercoagulable state ICD Code: D68.59 - Other primary thrombophilia (2) Hypertension ICD Code: I10 - Essential (primary) hypertension (3) Morbid obesity ICD Code: E66.01 - Morbid (severe) obesity due to excess calories (4) Endometrial cancer ICD Code: C54.1 - Malignant neoplasm of endometrium Status: Chronic (5) Bilateral pulmonary embolism ICD Code: I26.99 - Other pulmonary embolism without acute cor pulmonale Status: Acute (6) DVT of leg (deep venous thrombosis) ICD Code: I82.409 - Acute embolism and thrombosis of unspecified deep veins of unspecified lower extremity Status: Acute Procedures none Brief History - From Admission HPI from the admitting physician Patient is a 62-year-old female presented to the emergency department for evaluation of right lower extremity increasing shortness of breath. Patient has had leg edema since yesterday at least. She has had history of endometrial cancer that has metastasized. She has had a couple lesions in her aorta no issues with that from what she knows of. She has been undergoing chemo. Yesterday she started to develop swelling of the right leg out of nowhere. Denies any discoloration of the leg. Denies taking any blood thinners. She had chemo therapy last week. She called her oncologist Dr. Montes who recommended that she come here to get an ultrasound of her leg. Pain was 7 out of 10 in her right leg she chronically takes Percocet 5/325 every 6 hours and ibuprofen 400 mg every 6 hours. She has had the shortness of breath ongoing for some time denies any chest pain it is worse with movement worsens having chemotherapy patient follows with Dr. Montes and Dr. Robledo at the [facility]. Patient found to have bilateral pulmonary emboli and right lower extremity DVTs will be admitted for heparin drip and eventual transition to oral anticoagulation CBC/BMP: 01/31/18 0245 Significant Findings Laboratory Tests Test 01/28/18 17:05 01/29/18 00:25 01/29/18 06:45 01/29/18 13:35 Activated Partial Thromboplast Time 33.5 SEC (24.3-30.1) 34.4 SEC (24.3-30.1) 39.0 SEC (24.3-30.1) 36.2 SEC (24.3-30.1) Prothrombin Time 12.1 SEC (9.8-11.6) Test 01/29/18 21:25 01/29/18 23:24 01/30/18 06:30 01/30/18 18:35 Activated Partial Thromboplast Time 36.0 SEC (24.3-30.1) 35.9 SEC (24.3-30.1) 37.0 SEC (24.3-30.1) 44.1 SEC (24.3-30.1) Iron Level 17 MCG/DL (50-170) Total Iron Binding Capacity 176 MCG/DL (250-450) Percent Iron Saturation 9.6 % (20-50) Ferritin 790 NG/ML (8-252) Vitamin B12 Level GREATER THAN 2000 PG/ML Folate 19.8 NG/ML (3.1-17.5) Test 01/31/18 02:45 01/31/18 11:47 White Blood Count 11.4 TH/MM3 (4.0-11.0) Red Blood Count 2.76 MIL/MM3 (4.00-5.30) Hemoglobin 7.1 GM/DL (11.6-15.3) Hematocrit 21.8 % (35.0-46.0) Mean Corpuscular Volume 78.9 FL (80.0-100.0) Mean Corpuscular Hemoglobin 25.8 PG (27.0-34.0) Red Cell Distribution Width 19.7 % (11.6-17.2) Mean Platelet Volume 6.7 FL (7.0-11.0) Prothrombin Time 11.7 SEC (9.8-11.6) Activated Partial Thromboplast Time 38.2 SEC (24.3-30.1) 37.8 SEC (24.3-30.1) Imaging Last Impressions Lower Extremity Ultrasound 01/26/18 0000 Signed Impressions: CONCLUSION: 1. Extensive right lower extremity occlusive DVT. Chest X-Ray 01/22/18 1240 Signed Impressions: CONCLUSION: The lungs are clear. [id number] in good position. CT Angiography 01/22/18 0000 Signed Impressions: CONCLUSION: 1. Bilateral subsegmental and segmental pulmonary emboli. 2. No evidence of acute airspace disease 3. Prominent liver and spleen. PE at Discharge GENERAL: This is a well-nourished, well-developed patient, in no apparent distress. CARDIOVASCULAR: Normal rate and regular rhythm without murmurs, gallops, or rubs. RESPIRATORY: Good respiratory efforts. Breath sounds equal and clear to auscultation bilaterally. GASTROINTESTINAL: Abdomen soft, non-tender, non-distended. Normal active bowel sounds MUSCULOSKELETAL: Right lower extremity with tense edema. NEURO: Alert & Oriented x4 to person, place, time, situation. Moves all ext x4 PSYCH: Appropriate mood and affect. Pt update on day of discharge Patient reports she is feeling okay today. Still pain in the right leg. She wants to go home today. Hemoglobin down to 7.1. No evidence of active bleeding. No vaginal bleeding, stool has been normal. Hospital Course 62-year-old female admitted secondary to bilateral pulmonary emboli and right lower extremity DVT. Evaluation and treatment course detailed below: Right lower extremity DVT Bilateral pulmonary emboli Initially on heparin. Transition to Lovenox. However symptoms worsens concern for Lovenox. Credit Risk Officer, Dr. Riddle, recommends Edoxaban on discharged. pain control has been an issue. She is requiring Oramorph and Percocet. She will follow-up outpatient with oncology. Endometrial cancer Gynecology followed the patient Continue treatments as recommended Continue pain treatments Debility: Secondary to above. Patient requires a wheelchair and a walker. Hypertension Continue baseline treatment Follow blood pressures Adjust treatments as needed Diabetes: New diagnosis Hemoglobin A1c of 7.3 Patient seen by critical care educator. She is discharged on metformin. Patient advised to follow-up outpatient with PCP. Gastroesophageal reflux disease Nausea ranitidine and antinausea medication continued Constipation: -Irene-Colace Pt Condition on Discharge: Good Discharge Disposition: Disch w/ Home Health Serv Discharge Time: > 30 minutes Discharge Instructions DIET: Follow Instructions for: Diabetic Diet Activities you can perform: Regular-No Restrictions Follow up Referrals: Oncology PCP Follow-up New Medications: Blood-Glucose Meter (Blood Glucose Meter) 1 Each Each UNIT SQ TIDAC, #1 Edoxaban (Savaysa) 60 Mg Tab 60 MG PO DAILY for Blood Clot Prevention, #30 TAB 0 Refills Lancets (Lancets) 1 Mis Mis EA .XX DIRECTED for Blood Sugar Management, #1 0 Refills Metformin (Metformin) 500 Mg Tab 500 MG PO BIDPC for Blood Sugar Management, #60 TAB 0 Refills Walker with Front Wheels (Walker with Front Wheels) 1 Mis Mis EA .XX DIRECTED, #1 0 Refills Wheelchair Elevated Leg (Wheelchair Elevated Leg) 1 Mis Mis EA .XX DIRECTED, #1 0 Refills Morphine ER (Morphine ER) 15 Mg Tab 15 MG PO Q8HR, #45 TAB Oxycodone HCl/Acetaminophen (Oxycodone-Acetaminophen 10-325) 10 Mg-325 Mg Tablet 1 TAB PO Q4H PRN for BREAKTHROUGH PAIN, #20 TAB Sennosides-Docusate Sodium (Gnp Senna Plus 8.6-50 mg) 8.6 Mg-50 Mg Tab 1 TAB PO BID, #60 TAB Continued Medications: Ascorbic Acid (Vitamin C) 1,000 Mg Tablet.er 1 TAB PO Clonidine (Clonidine) 0.1 Mg Tab 0.1 MG PO BID for Blood Pressure Management, #60 TAB 0 Refills Cyanocobalamin (B12) 1,000 Mcg Tab 1 TAB PO DAILY Ranitidine (Ranitidine) 150 Mg Cap 150 MG PO BID, #60 CAP 5 Refills Luis Miguel Leblanc MD Jan 31, 2018 12:57
--- NOTE | 2018-01-31 12:58 | HHI.FF ---
Face to Face Verification Diagnosis: (1) DVT of leg (deep venous thrombosis) (2) Diabetes (3) Endometrial cancer (4) Hypercoagulable state (5) Bilateral pulmonary embolism Home Health Nursing Order: Medical education Signs/symptoms of disease process Nursing assessment with vital signs I have seen patient Samantha Pérez on 01/31/18. My clinical findings support the need for the requested home health care services because: Ltd mobility - disease progression I certify that my clinical findings support that this patient is homebound because: Unsteady gait/balance Unsafe to leave home unassisted Luis Miguel Leblanc MD Jan 31, 2018 12:58
[2018-02-01] VITALS (10 sets, daily range): BP systolic 103–187; BP diastolic 57–91; PULSE 67–114; RESP 16–20; TEMP 98–101.2; O2SAT 94–99
[2018-02-01] MEDS: oxyCODONE/ACETAMINOPHEN 10 MG/325 MG TAB PO PRN ×5 (00:22→23:45)
[2018-02-01] MEDS: HEPARIN-D5W 25,000 U/250 ML 250 ML IV PRN ×2 (00:29→10:18)
[2018-02-01] MEDS: MORPHINE SULFATE 4 MG/ML INJ IV PRN ×5 (01:40→20:49)
[2018-02-01] MEDS: SODIUM CHLORIDE 0.9% FLUSH 10 ML FLUSH IV FLUSH PRN ×2 (01:40→06:45)
[2018-02-01 03:01] LABS: INTERNATIONAL NORMALIZED RATIO 1.2 RATIO; PROTHROMBIN TIME - PATIENT 11.7 SEC (9.8-11.6)
[2018-02-01] MEDS: MORPHINE SULFATE 15 MG CONTROLLED RELEASE TAB PO SCH ×3 (04:36→22:18)
--- NOTE | 2018-02-01 07:41 | PD.ONC.PN ---
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 anxious to get oral anticoagulation so she can go home and start IV chemo pain controlled no complaints Objective Data Date Time Temp Pulse Resp B/P (MAP) Pulse Ox O2 Delivery O2 Flow Rate FiO2 02/01/18 05:36 20 02/01/18 05:36 20 02/01/18 04:00 98.0 67 20 141/60 (87) 99 02/01/18 02:40 20 02/01/18 00:00 99.6 69 20 103/63 (76) 97 01/31/18 23:20 20 01/31/18 20:00 99.6 81 22 139/72 (94) 96 01/31/18 20:00 96 Room Air 01/31/18 17:10 99.4 78 18 136/64 98 01/31/18 14:59 99.5 74 18 131/48 98 01/31/18 14:41 99.9 75 16 110/55 96 01/31/18 12:00 97.0 93 18 148/67 (94) 96 01/31/18 08:00 99.1 87 18 123/73 (90) 93 Result Diagram: 01/31/18 0245 Laboratory Results Laboratory Tests Test 01/31/18 11:47 01/31/18 19:01 02/01/18 01:48 Activated Partial Thromboplast Time 37.8 SEC 43.4 SEC 42.6 SEC Prothrombin Time 11.7 SEC Prothromb Time International Ratio 1.2 RATIO Administered Medications Medications (Trade) Dose Ordered Sig/Paul Route PRN Reason Start Time Stop Time Status Last Admin Dose Admin Acetaminophen (Tylenol) 650 mg Q4H PRN PO TEMP > 100.4 01/22/18 16:30 01/26/18 20:42 Ondansetron HCl (Zofran Odt) 4 mg Q6H PRN PO NAUSEA/VOMITING 01/22/18 17:45 01/29/18 08:28 Ibuprofen (Motrin) 400 mg Q6H PRN PO PAIN SCALE 1 TO 2 01/22/18 16:30 01/29/18 00:10 Morphine Sulfate (Morphine Inj) 4 mg Q3H PRN IV Pain 6-10;if unable to take PO 01/22/18 17:45 01/31/18 22:20 Morphine Sulfate (Morphine Inj) 4 mg Q3H PRN IV BREAKTHROUGH PAIN 01/22/18 17:45 02/01/18 06:45 Senna/Docusate Sodium (Irene-Colace) 1 tab BID PO 01/22/18 21:00 01/31/18 22:18 Magnesium Hydroxide (Milk Of Magnesia Liq) 30 ml Q12H PRN PO Mild constipation 01/22/18 16:30 01/30/18 21:01 Bisacodyl (Dulcolax Supp) 10 mg DAILY PRN RECTAL SEVERE CONSITIPATION 01/22/18 16:30 01/29/18 12:08 Lactulose (Lactulose Liq) 30 ml DAILY PRN PO SEVERE CONSITIPATION 01/22/18 16:30 01/29/18 08:42 Sodium Chloride (NS Flush) 2 ml UNSCH PRN IV FLUSH FLUSH AFTER USING IV ACCESS 01/22/18 16:30 02/01/18 06:45 Sodium Chloride (NS Flush) 2 ml BID IV FLUSH 01/22/18 21:00 01/31/18 22:22 Clonidine (Catapres) 0.1 mg BID PO 01/22/18 21:00 01/31/18 22:19 Prochlorperazine Edisylate (Compazine Inj) 10 mg Q6H PRN IV PUSH NAUSEA/VOMITING 01/22/18 16:45 01/29/18 14:28 Insulin Aspart (NovoLOG SUPPLEMENTAL SCALE) 1 ACHS SLIDING SCALE SQ 01/22/18 17:00 01/31/18 22:21 Cyanocobalamin (Vitamin B12) 1,000 mcg DAILY PO 01/23/18 09:00 01/31/18 08:47 Famotidine (Pepcid) 20 mg BID PO 01/22/18 21:00 01/31/18 22:18 Lidocaine/ Prilocaine (Emla Cream) TO PORT SITE UNSCH PRN TOPICAL ACCESSING IVAD 01/22/18 22:00 01/22/18 23:27 Oxycodone/ Acetaminophen (Percocet 5-325 Mg) 1 tab Q4H PRN PO PAIN SCALE 3 TO 5 01/23/18 14:30 01/28/18 08:59 Oxycodone/ Acetaminophen (Percocet 10-325 Mg) 1 tab Q4H PRN PO PAIN SCALE 6 TO 10 01/23/18 14:30 02/01/18 04:37 Heparin Sodium/ Dextrose 250 ml @ 17 mls/hr TITRATE PRN IV Coagulation Management 01/27/18 12:00 02/01/18 00:29 Morphine Sulfate (Oramorph Sr) 15 mg Q8HR PO 01/30/18 14:00 02/01/18 04:36 Objective Remarks GENERAL: Well-nourished, well-developed patient. SKIN: Warm and dry. HEAD: Normocephalic. EYES: No scleral icterus. No injection or drainage. NECK: Supple CARDIOVASCULAR: Regular rate and rhythm without murmurs. RESPIRATORY: Breath sounds equal bilaterally. No accessory muscle use. EXTREMITIES: No cyanosis, + edema to RLE MUSCULOSKELETAL: Adequate muscle tone. NEUROLOGICAL: No obvious focal deficit. Awake, alert, and oriented x3. PSYCHIATRIC: Appropriate mood and affect; insight and judgment normal. Assessment/Plan Problem List: (1) DVT of leg (deep venous thrombosis) ICD Codes: I82.409 - Acute embolism and thrombosis of unspecified deep veins of unspecified lower extremity Status: Acute Plan: Hem/Onc following: Dr. Riddle to assist with DVT/PE anticoagulation, currently on Heparin gtt recommending SQ Lovenox 1mg/kg BID We thank Dr. Riddle for her assistance in care of Ms. Pérez 01/28/18: patient restarted on Heparin gtt d/t increased leg pain and swelling on Lovenox 02/01/18: patient awaiting to start new anticoagulation, Edoxaban awaiting approval once patient is started she can be discharged home. (2) Bilateral pulmonary embolism ICD Codes: I26.99 - Other pulmonary embolism without acute cor pulmonale Status: Acute (3) Endometrial cancer ICD Codes: C54.1 - Malignant neoplasm of endometrium Status: Chronic Plan: start cycle 1 Doxil with Carboplatin once discharged monitor weekly labs as scheduled : pt will restart IV chemo upon discharge Assessment Attending Statement Discussed with Dr. Montes. Problem Qualifiers (1) DVT of leg (deep venous thrombosis): Qualified Codes: I82.491 - Acute embolism and thrombosis of other specified deep vein of right lower extremity Cara Dalton Feb 01, 2018 07:41
[2018-02-01] MEDS: INSULIN ASPART SUPPLEMENTAL SCALE SQ SCH ×4 (08:00→22:18)
[2018-02-01] MEDS: FAMOTIDINE 20 MG TAB PO SCH ×2 (08:38→22:22)
[2018-02-01] MEDS: CYANOCOBALAMIN 1,000 MCG TAB PO SCH (08:38)
[2018-02-01] MEDS: DOCUSATE SODIUM 50 MG/SENNA 8.6 MG TAB PO SCH ×2 (08:38→22:18)
[2018-02-01] MEDS: cloNIDine HCL 0.1 MG TAB PO SCH ×2 (08:39→22:19)
[2018-02-01] MEDS: SODIUM CHLORIDE 0.9% FLUSH 10 ML FLUSH IV FLUSH SCH ×2 (08:42→21:00)
[2018-02-01] MEDS ORDERED: LIDOCAINE-PRILOCAIN 2.5% CREAM 5 GM TUBE TOPICAL PRN (09:00)
--- NOTE | 2018-02-01 14:20 | PD.ONC.PN ---
Subjective Subjective Remarks Afebrile overnight. Patient feels super ready to go home. Objective Data Date Time Temp Pulse Resp B/P (MAP) Pulse Ox O2 Delivery O2 Flow Rate FiO2 02/01/18 09:50 97 21 02/01/18 09:38 18 02/01/18 08:22 98.1 73 18 161/69 (99) 96 02/01/18 08:00 96 Room Air 02/01/18 05:36 20 02/01/18 04:00 98.0 67 20 141/60 (87) 99 02/01/18 02:40 20 02/01/18 00:00 99.6 69 20 103/63 (76) 97 01/31/18 23:20 20 01/31/18 20:00 99.6 81 22 139/72 (94) 96 01/31/18 20:00 96 Room Air 01/31/18 17:10 99.4 78 18 136/64 98 01/31/18 14:59 99.5 74 18 131/48 98 01/31/18 14:41 99.9 75 16 110/55 96 Result Diagram: 01/31/18 0245 Laboratory Results Laboratory Tests Test 01/31/18 19:01 02/01/18 01:48 Activated Partial Thromboplast Time 43.4 SEC 42.6 SEC Prothrombin Time 11.7 SEC Prothromb Time International Ratio 1.2 RATIO Administered Medications Medications (Trade) Dose Ordered Sig/Paul Route PRN Reason Start Time Stop Time Status Last Admin Dose Admin Acetaminophen (Tylenol) 650 mg Q4H PRN PO TEMP > 100.4 01/22/18 16:30 01/26/18 20:42 Ondansetron HCl (Zofran Odt) 4 mg Q6H PRN PO NAUSEA/VOMITING 01/22/18 17:45 01/29/18 08:28 Ibuprofen (Motrin) 400 mg Q6H PRN PO PAIN SCALE 1 TO 2 01/22/18 16:30 01/29/18 00:10 Morphine Sulfate (Morphine Inj) 4 mg Q3H PRN IV Pain 6-10;if unable to take PO 01/22/18 17:45 01/31/18 22:20 Morphine Sulfate (Morphine Inj) 4 mg Q3H PRN IV BREAKTHROUGH PAIN 01/22/18 17:45 02/01/18 10:07 Senna/Docusate Sodium (Irene-Colace) 1 tab BID PO 01/22/18 21:00 02/01/18 08:38 Magnesium Hydroxide (Milk Of Magnesia Liq) 30 ml Q12H PRN PO Mild constipation 01/22/18 16:30 01/30/18 21:01 Bisacodyl (Dulcolax Supp) 10 mg DAILY PRN RECTAL SEVERE CONSITIPATION 01/22/18 16:30 01/29/18 12:08 Lactulose (Lactulose Liq) 30 ml DAILY PRN PO SEVERE CONSITIPATION 01/22/18 16:30 01/29/18 08:42 Sodium Chloride (NS Flush) 2 ml UNSCH PRN IV FLUSH FLUSH AFTER USING IV ACCESS 01/22/18 16:30 02/01/18 06:45 Sodium Chloride (NS Flush) 2 ml BID IV FLUSH 01/22/18 21:00 02/01/18 08:42 Clonidine (Catapres) 0.1 mg BID PO 01/22/18 21:00 02/01/18 08:39 Prochlorperazine Edisylate (Compazine Inj) 10 mg Q6H PRN IV PUSH NAUSEA/VOMITING 01/22/18 16:45 01/29/18 14:28 Insulin Aspart (NovoLOG SUPPLEMENTAL SCALE) 1 ACHS SLIDING SCALE SQ 01/22/18 17:00 01/31/18 22:21 Cyanocobalamin (Vitamin B12) 1,000 mcg DAILY PO 01/23/18 09:00 02/01/18 08:38 Famotidine (Pepcid) 20 mg BID PO 01/22/18 21:00 02/01/18 08:38 Lidocaine/ Prilocaine (Emla Cream) TO PORT SITE UNSCH PRN TOPICAL ACCESSING IVAD 01/22/18 22:00 01/22/18 23:27 Oxycodone/ Acetaminophen (Percocet 5-325 Mg) 1 tab Q4H PRN PO PAIN SCALE 3 TO 5 01/23/18 14:30 01/28/18 08:59 Oxycodone/ Acetaminophen (Percocet 10-325 Mg) 1 tab Q4H PRN PO PAIN SCALE 6 TO 10 01/23/18 14:30 02/01/18 08:38 Morphine Sulfate (Oramorph Sr) 15 mg Q8HR PO 01/30/18 14:00 02/01/18 04:36 Objective Remarks GENERAL: Middle aged female, sitting up in bed in nad. SKIN: Warm and dry. HEAD: Normocephalic. EYES: No injection or drainage. NECK: Supple, trachea midline. CARDIOVASCULAR: Regular rate and rhythm RESPIRATORY: Breath sounds equal bilaterally. No accessory muscle use. GASTROINTESTINAL: Abdomen distended, non-tender during my exam. EXTREMITIES: No cyanosis. edema in bilateral lower extremities, R>L NEUROLOGICAL: awake, alert. normal speech. moving all extremities. Assessment/Plan Assessment 62y/o female with metastatic endometrial cancer. Hematology consulted for DVT/PE Plan 1. DVT/PE: stop heparin gtt, start Edoxaban 60mg PO qd today. d/c on Edoxaban when available--per case management this drug will be available tomorrow. 2. Anemia: multifactorial d/t inflammation + chemotherapy. check CBC today. Attending Statement The exam, history, and the medical decision-making described in the above note were completed with the assistance of the mid-level provider. I reviewed and agree with the findings presented. I attest that I had a [id number] encounter with the patient on the same day, and personally performed and documented my assessment and findings in the medical record. 62 yoF with metastatic endometrial cancer. Admitted with VTE. Improvement in swelling, erythema. Discharge on endoxaban tomorrow. Jaylin Link Feb 01, 2018 14:20 Mely Riddle MD Feb 01, 2018 22:32
[2018-02-01 15:38] LABS: AUTOMATED NEUTROPHIL # 9.8 TH/MM3 (1.8-7.7); BASOPHIL % 0.4 % (0.0-2.0); EOSINOPHIL # 0.1 TH/MM3 (0-0.4); HEMATOCRIT 25.7 % (35.0-46.0); HEMOGLOBIN 8.1 GM/DL (11.6-15.3); LYMPH % 12.1 % (9.0-44.0); LYMPHOCYTE # 1.5 TH/MM3 (1.0-4.8); MEAN CELL VOLUME 79.5 FL (80.0-100.0); MEAN CORPUSCULAR HEMOGLOBIN 25.2 PG (27.0-34.0); MEAN CORPUSCULAR HGB CONC 31.7 % (32.0-36.0); MEAN PLATELET VOLUME 7.4 FL (7.0-11.0); MONO % 4.7 % (0.0-8.0); MONOCYTE # 0.6 TH/MM3 (0-0.9); NEUT % 81.8 % (16.0-70.0); PLATELET COUNT 367 TH/MM3 (150-450); RED BLOOD COUNT 3.23 MIL/MM3 (4.00-5.30); RED CELL DISTRIBUTION WIDTH 20.5 % (11.6-17.2)
[2018-02-01 15:50] LABS: INTERNATIONAL NORMALIZED RATIO 1.1 RATIO; PROTHROMBIN TIME - PATIENT 11.2 SEC (9.8-11.6)
[2018-02-01 16:28] LABS: BANDS 2 % (0-6); LYMPHOCYTES 11 % (9-44); METAMYELOCYTES 2 % (0-1); MONOCYTES 5 % (0-8); MYELOCYTES 3 % (0-0); NEUTROPHIL # MANUAL DIFF 10.1 TH/MM3 (1.8-7.7); POLYS (SEG NEUTROPHILS) 77 % (16-70)
[2018-02-01 16:29] LABS: POLYCHROMASIA 2.1 % (0.0-1.9)
--- NOTE | 2018-02-01 16:56 | HHI.PR ---
Subjective Remarks The pt wanted to go home soon. She said she was very constipated. She has been passing gas and denies any abdominal pain. Discussed with nursing. Objective Vitals Vital Signs Date Time Temp Pulse Resp B/P (MAP) Pulse Ox O2 Delivery O2 Flow Rate FiO2 02/01/18 14:20 98.2 85 18 126/57 (80) 97 02/01/18 09:50 97 21 02/01/18 09:38 18 02/01/18 08:22 98.1 73 18 161/69 (99) 96 02/01/18 08:00 96 Room Air 02/01/18 05:36 20 02/01/18 04:00 98.0 67 20 141/60 (87) 99 02/01/18 02:40 20 02/01/18 00:00 99.6 69 20 103/63 (76) 97 01/31/18 23:20 20 01/31/18 20:00 99.6 81 22 139/72 (94) 96 01/31/18 20:00 96 Room Air 01/31/18 17:10 99.4 78 18 136/64 98 I/O 01/31/18 01/31/18 01/31/18 02/01/18 02/01/18 02/01/18 07:00 15:00 23:00 07:00 15:00 23:00 Intake Total 260 ml 1410 ml Balance 260 ml 1410 ml Intake Oral 960 ml IV Total 260 ml Packed Cells 400 ml Blood Product IV Normal Saline Flush 50 ml # Voids 8 # Bowel Movements 0 Result Diagram: 02/01/18 1430 Imaging Last Impressions Lower Extremity Ultrasound 01/26/18 0000 Signed Impressions: CONCLUSION: 1. Extensive right lower extremity occlusive DVT. Chest X-Ray 01/22/18 1240 Signed Impressions: CONCLUSION: The lungs are clear. [id number] in good position. CT Angiography 01/22/18 0000 Signed Impressions: CONCLUSION: 1. Bilateral subsegmental and segmental pulmonary emboli. 2. No evidence of acute airspace disease 3. Prominent liver and spleen. Objective Remarks GENERAL: This is a well-nourished, well-developed patient, in no apparent distress. CARDIOVASCULAR: Normal rate and regular rhythm without murmurs, gallops, or rubs. RESPIRATORY: Good respiratory efforts. Breath sounds equal and clear to auscultation bilaterally. GASTROINTESTINAL: Abdomen soft, non-tender, non-distended. Normal active bowel sounds MUSCULOSKELETAL: Right lower extremity with tense edema. NEURO: Alert & Oriented x4 to person, place, time, situation. Moves all ext x4 PSYCH: Appropriate mood and affect. Procedures none A/P Problem List: (1) Hypercoagulable state ICD Code: D68.59 - Other primary thrombophilia (2) Hypertension ICD Code: I10 - Essential (primary) hypertension (3) Morbid obesity ICD Code: E66.01 - Morbid (severe) obesity due to excess calories (4) Endometrial cancer ICD Code: C54.1 - Malignant neoplasm of endometrium Status: Chronic (5) Bilateral pulmonary embolism ICD Code: I26.99 - Other pulmonary embolism without acute cor pulmonale Status: Acute (6) DVT of leg (deep venous thrombosis) ICD Code: I82.409 - Acute embolism and thrombosis of unspecified deep veins of unspecified lower extremity Status: Acute Assessment and Plan 62-year-old female admitted secondary to bilateral pulmonary emboli and right lower extremity DVT Right lower extremity DVT Bilateral pulmonary emboli S/p heparin. Discussed with account manager education, Dr. Riddle. Plan to discharge the patient on Edoxaban which was started 02/01. Pain control. Appreciate hematology following. Discussed with case management to ensure the patient can obtain this medication. Endometrial cancer Gynecology following Continue treatments as recommended Continue pain treatments Hypertension Continue baseline treatment Follow blood pressures Adjust treatments as needed Diabetes: New diagnosis Continue SSI with accucheck. Plan to DC on Metformin. Diabetic diet Probable obstructive sleep apnea recommend outpatient sleep study Gastroesophageal reflux disease Nausea ranitidine and antinausea medication continued Constipation: - Bowel regimen Discharge Planning S/c in AM if med available Problem Qualifiers (1) DVT of leg (deep venous thrombosis): Qualified Codes: I82.491 - Acute embolism and thrombosis of other specified deep vein of right lower extremity Shine Jim DO Feb 01, 2018 16:56
[2018-02-01] MEDS: EDOXABAN TOSYLATE 60 MG TAB PO SCH (20:47)
[2018-02-01] MEDS: ACETAMINOPHEN 325 MG TAB PO PRN (23:05)
[2018-02-01 23:29] LABS: BILIRUBIN, URINE NEG (NEG); BLOOD, URINE NEG (NEG); GLUCOSE,URINE NEG (NEG); KETONE, URINE NEG (NEG); MUCUS URINE FEW /lpf (OCC); NITRITE,URINE NEG (NEG); SQUAMOUS EPITHELIAL CELL URINE 1 /hpf (0-5); URINE COLOR YELLOW (YELLW/STRAW); URINE LEUKOCYTE ESTERASE NEG (NEG)
[2018-02-02] VITALS (10 sets, daily range): BP systolic 124–149; BP diastolic 69–73; PULSE 81–104; RESP 18; TEMP 98.1–99.8; O2SAT 94–100
[2018-02-02] MEDS: MORPHINE SULFATE 4 MG/ML INJ IV PRN ×3 (00:38→09:52)
[2018-02-02] MEDS: oxyCODONE/ACETAMINOPHEN 10 MG/325 MG TAB PO PRN ×5 (03:28→20:23)
[2018-02-02 05:31] LABS: INTERNATIONAL NORMALIZED RATIO 1.4 RATIO; PROTHROMBIN TIME - PATIENT 13.9 SEC (9.8-11.6)
[2018-02-02 05:51] LABS: BASOPHIL % 0.2 % (0.0-2.0); EOSINOPHIL # 0.1 TH/MM3 (0-0.4); EOSINOPHIL % 0.7 % (0.0-4.0); HEMATOCRIT 23.9 % (35.0-46.0); HEMOGLOBIN 7.6 GM/DL (11.6-15.3); LYMPH % 8.4 % (9.0-44.0); LYMPHOCYTE # 0.9 TH/MM3 (1.0-4.8); MEAN CELL VOLUME 82.4 FL (80.0-100.0); MEAN CORPUSCULAR HEMOGLOBIN 26.1 PG (27.0-34.0); MEAN CORPUSCULAR HGB CONC 31.7 % (32.0-36.0); MEAN PLATELET VOLUME 6.8 FL (7.0-11.0); MONO % 5.8 % (0.0-8.0); MONOCYTE # 0.6 TH/MM3 (0-0.9); NEUT % 84.9 % (16.0-70.0); PLATELET COUNT 231 TH/MM3 (150-450); RED CELL DISTRIBUTION WIDTH 20.2 % (11.6-17.2); WHITE BLOOD COUNT 10.5 TH/MM3 (4.0-11.0)
[2018-02-02] MEDS: MORPHINE SULFATE 15 MG CONTROLLED RELEASE TAB PO SCH ×3 (06:01→20:23)
[2018-02-02] MEDS: INSULIN ASPART SUPPLEMENTAL SCALE SQ SCH ×4 (08:26→20:39)
[2018-02-02] MEDS: FAMOTIDINE 20 MG TAB PO SCH ×2 (08:26→20:22)
[2018-02-02] MEDS: CYANOCOBALAMIN 1,000 MCG TAB PO SCH (08:26)
[2018-02-02] MEDS: DOCUSATE SODIUM 50 MG/SENNA 8.6 MG TAB PO SCH ×2 (08:26→20:24)
[2018-02-02] MEDS: SENNOSIDES 8.6 MG TAB PO PRN ×2 (08:26→20:22)
[2018-02-02] MEDS: cloNIDine HCL 0.1 MG TAB PO SCH ×2 (08:26→20:22)
[2018-02-02] MEDS: SODIUM CHLORIDE 0.9% FLUSH 10 ML FLUSH IV FLUSH SCH ×2 (08:27→20:24)
--- NOTE | 2018-02-02 13:54 | HHI.PR ---
Subjective Remarks The pt was resting comfortably. She was upset that she had a fever and hoped it wouldn't delay her discharge too long. No complaints of pain or shortness of breath. Objective Vitals Vital Signs Date Time Temp Pulse Resp B/P (MAP) Pulse Ox O2 Delivery O2 Flow Rate FiO2 02/02/18 11:13 98.2 83 18 129/69 (89) 95 02/02/18 11:00 104 02/02/18 08:30 Room Air 02/02/18 08:03 98.1 89 18 136/73 (94) 97 02/02/18 07:00 82 02/02/18 03:30 98.1 101 18 149/69 (95) 94 02/02/18 03:00 87 02/01/18 23:40 100.8 112 20 146/80 (102) 96 02/01/18 23:00 114 02/01/18 20:55 101.2 112 16 144/72 (96) 94 02/01/18 19:00 106 02/01/18 19:00 98 Room Air 02/01/18 17:27 99.6 96 18 187/91 (123) 98 02/01/18 17:00 98 Room Air 02/01/18 14:20 98.2 85 18 126/57 (80) 97 I/O 02/01/18 02/01/18 02/01/18 02/02/18 02/02/18 02/02/18 07:00 15:00 23:00 07:00 15:00 23:00 Intake Total 480 ml Output Total 1250 ml Balance -770 ml Intake Oral 480 ml Output Urine Total 1250 ml # Bowel Movements 0 Result Diagram: 02/02/18 0440 Imaging Last Impressions Lower Extremity Ultrasound 01/26/18 0000 Signed Impressions: CONCLUSION: 1. Extensive right lower extremity occlusive DVT. Chest X-Ray 01/22/18 1240 Signed Impressions: CONCLUSION: The lungs are clear. [id number] in good position. CT Angiography 01/22/18 0000 Signed Impressions: CONCLUSION: 1. Bilateral subsegmental and segmental pulmonary emboli. 2. No evidence of acute airspace disease 3. Prominent liver and spleen. Objective Remarks GENERAL: This is a well-nourished, well-developed patient, in no apparent distress. CARDIOVASCULAR: Normal rate and regular rhythm without murmurs, gallops, or rubs. RESPIRATORY: Good respiratory efforts. Breath sounds equal and clear to auscultation bilaterally. GASTROINTESTINAL: Abdomen soft, non-tender, non-distended. Normal active bowel sounds MUSCULOSKELETAL: Right lower extremity with tense edema. NEURO: Alert & Oriented x4 to person, place, time, situation. Moves all ext x4 PSYCH: Slightly flattened affect. Procedures none A/P Problem List: (1) Hypercoagulable state ICD Code: D68.59 - Other primary thrombophilia (2) Hypertension ICD Code: I10 - Essential (primary) hypertension (3) Morbid obesity ICD Code: E66.01 - Morbid (severe) obesity due to excess calories (4) Endometrial cancer ICD Code: C54.1 - Malignant neoplasm of endometrium Status: Chronic (5) Bilateral pulmonary embolism ICD Code: I26.99 - Other pulmonary embolism without acute cor pulmonale Status: Acute (6) DVT of leg (deep venous thrombosis) ICD Code: I82.409 - Acute embolism and thrombosis of unspecified deep veins of unspecified lower extremity Status: Acute Assessment and Plan 62-year-old female admitted secondary to bilateral pulmonary emboli and right lower extremity DVT Right lower extremity DVT Bilateral pulmonary emboli - S/p heparin. Discussed with agile project manager, Dr. Riddle. Plan to discharge the patient on Edoxaban which was started 02/01. - Pain control. - Discussed with case management to ensure the patient can obtain this medication. Fever May be related to above. - follow culture results. - CXR pending. Endometrial cancer - Gynecology following - Continue treatments as recommended - Continue pain treatments Hypertension - Continue baseline treatment - Adjust treatments as needed Diabetes New diagnosis. A1c 7.3%. - Continue SSI with accucheck. - Plan to DC on Metformin. - Diabetic diet Probable obstructive sleep apnea - recommend outpatient sleep study Constipation: - Bowel regimen Discharge Planning D/c if afebrile and medication obtained Problem Qualifiers (1) DVT of leg (deep venous thrombosis): Qualified Codes: I82.491 - Acute embolism and thrombosis of other specified deep vein of right lower extremity Shine Jim DO Feb 02, 2018 13:54
--- NOTE | 2018-02-02 14:35 | RADRPT ---
EXAM DATE: 02/02/2018 2:33 PM EDT AGE/SEX: 62 years / Female INDICATIONS: Fever. CLINICAL DATA: This is the patient's subsequent encounter. Patient reports that signs and symptoms h ave been present for 1 day and indicates a pain score of 0/10. MEDICAL/SURGICAL HISTORY: . Hypertension. Gastroesophageal reflux disease. Arthritis. Recent ri ght leg dvt.Diabetes. Endometrial cancer. . Hysterectomy. Tonsillectomy. Right chest port. COMPARISON: [facility] – [place], CHEST SINGLE AP, 01/22/2018. . FINDINGS: A single AP view of the chest demonstrates minimal left basilar subsegmental atelectasis. Right lung clear. Right-sided port is unchanged. The cardiomediastinal contours are unremarkable. Osseous stru ctures are intact. CONCLUSION: Left basilar subsegmental atelectasis. Electronically signed by: David Maynard MD 02/02/2018 2:34 PM EDT
[2018-02-02] MEDS: IBUPROFEN 400 MG TAB PO PRN ×2 (14:36→23:29)
[2018-02-02] MEDS: EDOXABAN TOSYLATE 60 MG TAB PO SCH (16:30)
[2018-02-03] VITALS (8 sets, daily range): BP systolic 124–128; BP diastolic 66–74; PULSE 64–110; RESP 18; TEMP 97.9–100.3; O2SAT 95–100
[2018-02-03] MEDS: oxyCODONE/ACETAMINOPHEN 10 MG/325 MG TAB PO PRN ×4 (00:26→12:44)
[2018-02-03] MEDS: MORPHINE SULFATE 15 MG CONTROLLED RELEASE TAB PO SCH ×2 (05:14→13:56)
[2018-02-03 05:24] LABS: HEMATOCRIT 24.6 % (35.0-46.0); MEAN CELL VOLUME 78.9 FL (80.0-100.0); MEAN CORPUSCULAR HEMOGLOBIN 25.5 PG (27.0-34.0); MEAN CORPUSCULAR HGB CONC 32.3 % (32.0-36.0); MEAN PLATELET VOLUME 7.1 FL (7.0-11.0); PLATELET COUNT 188 TH/MM3 (150-450); RED BLOOD COUNT 3.12 MIL/MM3 (4.00-5.30); RED CELL DISTRIBUTION WIDTH 19.7 % (11.6-17.2); WHITE BLOOD COUNT 9.9 TH/MM3 (4.0-11.0)
[2018-02-03 05:35] LABS: INTERNATIONAL NORMALIZED RATIO 1.3 RATIO; PROTHROMBIN TIME - PATIENT 12.7 SEC (9.8-11.6)
[2018-02-03 05:45] LABS: BICARBONATE 29.6 MEQ/L (21.0-32.0); CALCIUM 9.2 MG/DL (8.5-10.1); CREATININE 0.6 MG/DL (0.50-1.00); MAGNESIUM 2.1 MG/DL (1.5-2.5)
[2018-02-03] MEDS: INSULIN ASPART SUPPLEMENTAL SCALE SQ SCH ×2 (08:00→12:40)
[2018-02-03] MEDS: CYANOCOBALAMIN 1,000 MCG TAB PO SCH (09:03)
[2018-02-03] MEDS: DOCUSATE SODIUM 50 MG/SENNA 8.6 MG TAB PO SCH (09:03)
[2018-02-03] MEDS: cloNIDine HCL 0.1 MG TAB PO SCH (09:03)
[2018-02-03] MEDS: SENNOSIDES 8.6 MG TAB PO PRN (09:03)
[2018-02-03] MEDS: FAMOTIDINE 20 MG TAB PO SCH (09:03)
[2018-02-03] MEDS: SODIUM CHLORIDE 0.9% FLUSH 10 ML FLUSH IV FLUSH SCH (09:05)
[2018-02-03] MEDS: IBUPROFEN 400 MG TAB PO PRN (11:37)
[2018-02-03] MEDS ORDERED: OXYC15TA PO (11:39)
[2018-02-03] MEDS ORDERED: MORP1TAB24 PO (11:57)
--- NOTE | 2018-02-03 12:17 | HHI.DS ---
Discharge Summary Admission Date Jan 22, 2018 at 16:15 Discharge Date: Feb 03, 2018 Admitting Diagnosis acute right leg DVT and bilateral PE, cancer patient (1) Hypercoagulable state ICD Code: D68.59 - Other primary thrombophilia Diagnosis: Principal (2) Hypertension ICD Code: I10 - Essential (primary) hypertension (3) Morbid obesity ICD Code: E66.01 - Morbid (severe) obesity due to excess calories (4) Endometrial cancer ICD Code: C54.1 - Malignant neoplasm of endometrium Diagnosis: Principal Status: Chronic (5) Bilateral pulmonary embolism ICD Code: I26.99 - Other pulmonary embolism without acute cor pulmonale Diagnosis: Principal Status: Acute (6) DVT of leg (deep venous thrombosis) ICD Code: I82.409 - Acute embolism and thrombosis of unspecified deep veins of unspecified lower extremity Diagnosis: Principal Status: Acute (7) Fever ICD Code: R50.9 - Fever, unspecified Diagnosis: Principal Procedures none Brief History - From Admission HPI from the admitting physician Patient is a 62-year-old female presented to the emergency department for evaluation of right lower extremity increasing shortness of breath. Patient has had leg edema since yesterday at least. She has had history of endometrial cancer that has metastasized. She has had a couple lesions in her aorta no issues with that from what she knows of. She has been undergoing chemo. Yesterday she started to develop swelling of the right leg out of nowhere. Denies any discoloration of the leg. Denies taking any blood thinners. She had chemo therapy last week. She called her oncologist Dr. Montes who recommended that she come here to get an ultrasound of her leg. Pain was 7 out of 10 in her right leg she chronically takes Percocet 5/325 every 6 hours and ibuprofen 400 mg every 6 hours. She has had the shortness of breath ongoing for some time denies any chest pain it is worse with movement worsens having chemotherapy patient follows with Dr. Montes and Dr. Robledo at the [facility]. Patient found to have bilateral pulmonary emboli and right lower extremity DVTs will be admitted for heparin drip and eventual transition to oral anticoagulation CBC/BMP: 02/03/18 0445 02/03/18 0445 Significant Findings Laboratory Tests Test 01/31/18 19:01 02/01/18 01:48 02/01/18 14:30 02/01/18 23:11 Activated Partial Thromboplast Time 43.4 SEC (24.3-30.1) 42.6 SEC (24.3-30.1) Prothrombin Time 11.7 SEC (9.8-11.6) White Blood Count 12.0 TH/MM3 (4.0-11.0) Red Blood Count 3.23 MIL/MM3 (4.00-5.30) Hemoglobin 8.1 GM/DL (11.6-15.3) Hematocrit 25.7 % (35.0-46.0) Mean Corpuscular Volume 79.5 FL (80.0-100.0) Mean Corpuscular Hemoglobin 25.2 PG (27.0-34.0) Mean Corpuscular Hemoglobin Concent 31.7 % (32.0-36.0) Red Cell Distribution Width 20.5 % (11.6-17.2) Neutrophils (%) (Auto) 81.8 % (16.0-70.0) Neutrophils # (Auto) 9.8 TH/MM3 (1.8-7.7) Neutrophils % (Manual) 77 % (16-70) Neutrophils # (Manual) 10.1 TH/MM3 (1.8-7.7) Metamyelocytes 2 % (0-1) Myelocytes 3 % (0-0) Polychromasia 2.1 % (0.0-1.9) Urine Urobilinogen 2.0 mg/dL (LESS THAN 2) Urine RBC 4 /hpf (0-3) Urine Mucus FEW /lpf (OCC) Test 02/02/18 04:40 02/03/18 04:45 Red Blood Count 2.90 MIL/MM3 (4.00-5.30) 3.12 MIL/MM3 (4.00-5.30) Hemoglobin 7.6 GM/DL (11.6-15.3) 8.0 GM/DL (11.6-15.3) Hematocrit 23.9 % (35.0-46.0) 24.6 % (35.0-46.0) Mean Corpuscular Hemoglobin 26.1 PG (27.0-34.0) 25.5 PG (27.0-34.0) Mean Corpuscular Hemoglobin Concent 31.7 % (32.0-36.0) Red Cell Distribution Width 20.2 % (11.6-17.2) 19.7 % (11.6-17.2) Mean Platelet Volume 6.8 FL (7.0-11.0) Neutrophils (%) (Auto) 84.9 % (16.0-70.0) Lymphocytes (%) (Auto) 8.4 % (9.0-44.0) Neutrophils # (Auto) 9.0 TH/MM3 (1.8-7.7) Lymphocytes # (Auto) 0.9 TH/MM3 (1.0-4.8) Prothrombin Time 13.9 SEC (9.8-11.6) 12.7 SEC (9.8-11.6) Activated Partial Thromboplast Time 32.4 SEC (24.3-30.1) 33.2 SEC (24.3-30.1) Mean Corpuscular Volume 78.9 FL (80.0-100.0) Random Glucose 133 MG/DL (74-106) Chloride Level 97 MEQ/L (98-107) Imaging Last Impressions Chest X-Ray 02/02/18 0000 Signed Impressions: CONCLUSION: Left basilar subsegmental atelectasis. Lower Extremity Ultrasound 01/26/18 0000 Signed Impressions: CONCLUSION: 1. Extensive right lower extremity occlusive DVT. CT Angiography 01/22/18 Signed Impressions: CONCLUSION: 1. Bilateral subsegmental and segmental pulmonary emboli. 2. No evidence of acute airspace disease 3. Prominent liver and spleen. PE at Discharge GENERAL: This is a well-nourished, well-developed patient, in no apparent distress. CARDIOVASCULAR: Normal rate and regular rhythm without murmurs, gallops, or rubs. RESPIRATORY: Good respiratory efforts. Breath sounds equal and clear to auscultation bilaterally. GASTROINTESTINAL: Abdomen soft, non-tender, non-distended. Normal active bowel sounds MUSCULOSKELETAL: Right lower extremity with tense edema. NEURO: Alert & Oriented x4 to person, place, time, situation. Moves all ext x4 PSYCH: Slightly flattened affect. Pt update on day of discharge The patient requested an increase in her pain medication dosage. She really wanted to go home. She wanted to know how to know if her blood count went low enough where she needed a transfusion. Discussed with nursing at the bedside. Hospital Course Right lower extremity DVT/ Bilateral pulmonary emboli The pt was started on anticoagulation. Hematology was consulted. Plan to discharge the patient on Edoxaban which was started on 02/01. The pt received pain control. She will require long-acting PO morphine as well as short acting oxycodone as her pain has remained quite severe during her hospital stay. She will follow up with hematology as an outpt. Fever Cultures were negative. CXR unremarkable. The patient has DVT/ PEs as above. Blood culture with NGTD. The pt was adamant about being discharged today and did not want further monitoring. She said she will return to the ED if she develops any concerning symptoms or fevers. Endometrial cancer Gynecology/ oncology were consulted. The pt was continued on treatments as recommended. She received pain treatments as above and will require pain medication upon discharge. Hypertension Well controlled on baseline treatment. Diabetes New diagnosis. A1c 7.3%. We continued SSI with accucheck. We will discharge on Metformin and a diabetic diet. She will follow up with her PCP. Constipation Resolved with a bowel regimen. Pt Condition on Discharge: Good Discharge Disposition: Disch w/ Home Health Serv Discharge Time: > 30 minutes Discharge Instructions DIET: Follow Instructions for: Diabetic Diet Activities you can perform: Regular-No Restrictions Follow up Referrals: Oncology - [address] Riddle PCP Follow-up - 1 Week Surgical - [address] Montes New Orders: CBC WITH DIFF - 3-5 Days New Medications: Blood-Glucose Meter (Blood Glucose Meter) 1 Each Each UNIT SQ TIDAC, #1 Edoxaban (Savaysa) 60 Mg Tab 60 MG PO DAILY for Blood Clot Prevention, #30 TAB 0 Refills Lancets (Lancets) 1 Mis Mis EA .XX DIRECTED for Blood Sugar Management, #1 0 Refills Metformin (Metformin) 500 Mg Tab 500 MG PO BIDPC for Blood Sugar Management, #60 TAB 0 Refills Morphine ER (Morphine ER) 15 Mg Tab 15 MG PO Q8H for Pain Management for 7 Days, #21 TAB 0 Refills Oxycodone (Oxycodone) 15 Mg Tab 15 MG PO Q4H PRN for PAIN, #20 TAB 0 Refills Walker with Front Wheels (Walker with Front Wheels) 1 Mis Mis EA .XX DIRECTED, #1 0 Refills Wheelchair Elevated Leg (Wheelchair Elevated Leg) 1 Mis Mis EA .XX DIRECTED, #1 0 Refills Sennosides-Docusate Sodium (Gnp Senna Plus 8.6-50 mg) 8.6 Mg-50 Mg Tab 1 TAB PO BID, #60 TAB Continued Medications: Ascorbic Acid (Vitamin C) 1,000 Mg Tablet.er 1 TAB PO Clonidine (Clonidine) 0.1 Mg Tab 0.1 MG PO BID for Blood Pressure Management, #60 TAB 0 Refills Cyanocobalamin (B12) 1,000 Mcg Tab 1 TAB PO DAILY Ranitidine (Ranitidine) 150 Mg Cap 150 MG PO BID, #60 CAP 5 Refills Discontinued Medications: Oxycodone-Acetaminophen (Percocet) 5-325 mg Tab 1 TAB PO Q4H PRN for PAIN, TAB 0 Refills Shine Jim DO Feb 03, 2018 12:17
[2018-02-03] MEDS ORDERED: APIX5TAB PO (13:58)
[2018-02-03] MEDS ORDERED: EDOX1TAB5 PO (14:18)
[2018-02-03] MEDS ORDERED: EDOXABAN TOSYLATE 60 MG TAB PO SCH (16:30)
[2018-02-03] MEDS ORDERED: APIXABAN 5 MG TABLET PO SCH (21:00)
== END 2018-02-03 15:20 | disposition home health service (06) | DRG 299 ==
LOC: NEPE 11:32 → NEDA 16:15 → HCIN 18:14
PROVIDERS: ADMIT Hospitalist; ATTEND Hospitalist
PROC: 30233N1 Transfusion of Nonautologous Red Blood Cells into Peripheral Vein, Percutaneous Approach (ICD-10-PCS; principal; 2018-01-31)
DX: I82.491 Acute embolism and thrombosis of other specified deep vein of right lower extremity (principal); I26.99 Other pulmonary embolism without acute cor pulmonale; D68.69 Other thrombophilia; C79.89 Secondary malignant neoplasm of other specified sites; D69.59 Other secondary thrombocytopenia; E11.65 Type 2 diabetes mellitus with hyperglycemia; E66.01 Morbid (severe) obesity due to excess calories; D64.81 Anemia due to antineoplastic chemotherapy; C54.1 Malignant neoplasm of endometrium; I82.411 Acute embolism and thrombosis of right femoral vein; I82.421 Acute embolism and thrombosis of right iliac vein; I82.431 Acute embolism and thrombosis of right popliteal vein; I10 Essential (primary) hypertension; K21.9 Gastro-esophageal reflux disease without esophagitis; G47.33 Obstructive sleep apnea (adult) (pediatric); D63.0 Anemia in neoplastic disease; T45.1X5A Adverse effect of antineoplastic and immunosuppressive drugs, initial encounter; K59.00 Constipation, unspecified; M81.0 Age-related osteoporosis without current pathological fracture; Z68.34 Body mass index [BMI] 34.0-34.9, adult; Z83.3 Family history of diabetes mellitus; Z88.5 Allergy status to narcotic agent
CPT/HCPCS: 36430; 71045; 71275; 80048; 80053; 81001; 82550; 82607; 82728; 82746; 82948; 83036; 83540; 83550; 83735; 83880; 84100; 84439; 84443; 84484; 85007; 85025; 85027; 85610; 85730; 86850; 86900; 86901; 86920; 87040; 87086; 93971; 96374; 96375; J0780; J1642; J1644; J1650; J1815; J1940; J2270; J2543; J2765; J2997; P9016; Q9967

== ENCOUNTER 2018-02-26 10:33 | Inpatient (IN) ==
[2018-02-26] MEDS ORDERED: Dextrose 50% in Water 50 ML Vial IV.PUSH PRN (13:54)
--- NOTE | 2018-02-26 14:11 | P.HPIM ---
History of Present Illness Primary Care Physician: Ramez Robledo MD Chief Complaint: pain to the right leg. History of Present Illness: patient is a 62 y/o female with history of endometrial cancer,DVT and diabetes, who was sent to the hospital as a direct admission, because of worsening pain to the right leg. she was recently admitted to the hospital because of PE and DVT of the right lower extremity. she was released from the hospital with Edoxaban. she says that her pain to the right leg continued to get worse.she was seen by yesterday and was advised to come to ER last night but she decided to wait. she denies any sob at this time but she says that her pain to the right leg is severe. Review of Systems All other systems reviewed negative except as stated in [facility] - History History Provided By: Patient, Medical Record - Medical History Medical History: Medical History (Last Updated 02/19/18 @ 13:05 by Stella Wood DO) DVT (deep venous thrombosis) Endometrial cancer Endometrial cancer H/O: hysterectomy Hypertension Port-A-Cath in place - Surgical History Surgical History: Surgical History (Last Reviewed 02/19/18 @ 13:05 by Stella Wood DO) Hx of tonsillectomy - Tobacco History Second Hand Smoke Exposure: Yes Smoking Status: Never smoker Tobacco Type: Cigarettes - Alcohol History How Often Do You Have a Drink Containing Alcohol: Never - Substance Use History Substance History: No History of Abuse Medications and Allergies Active Medications: Active Medications Dextrose (D50w Vial) 50 ml IV.PUSH UNSCH PRN PRN Reason: PER HYPOGLYCEMIA PROTOCOL Glucagon (Glucagon Inj) 1 mg OTHER PRN PRN PRN Reason: for Hypoglycemia Protocol Insulin Aspart (Novolog Insulin Correctional Sugar Inj) 0 unit SQ ACHS LISA; Protocol Allergies Allergy/AdvReac Type Severity Reaction Status Date / Time codeine Allergy Severe Verified 01/22/18 13:21 Home Medications Medication Instructions Recorded Confirmed Type acyclovir 400 mg PO Q4H 02/17/18 02/19/18 History metformin 500 mg PO BID 02/17/18 02/19/18 History morphine 15 mg PO Q8HR PRN 02/17/18 02/19/18 History oxycodone 15 mg PO Q4-6H 02/17/18 02/19/18 History Exam - Constitutional no acute distress - Routine HEENT Exam Head: Present: normocephalic Eye: Present: PERRL - Routine Neck Exam Present: supple, full ROM - Routine Respiratory Exam Present: CTA bilaterally - Routine Cardiovascular Exam Present: RRR - Routine Abdominal Exam Present: soft - Routine Extremities Exam Comments: swelling/ pain of the right leg. - Routine Neurological Exam Present: alert, oriented X3 Caprini VTE Risk Assessment Caprini VTE Risk Assessment: Moderate/High Risk (score >= 2) Caprini Risk Assessment Model: Point Value = 1 Point Value = 2 Point Value = 3 Point Value = 5 Age 41-60 Minor surgery BMI > 25 kg/m2 Swollen legs Varicose veins or History of unexplained or recurrent spontaneous Oral contraceptives or hormone replacement Sepsis (< 1 month) Serious lung disease, including pneumonia (< 1 month) Abnormal pulmonary function Acute myocardial infarction Congestive heart failure (< 1 month) History of inflammatory bowel disease Medical patient at bed rest Age 61-74 Arthroscopic surgery Major open surgery (> 45 min) Laparoscopic surgery (> 45 min) Malignancy Confined to bed (> 72 hours) Immobilizing plaster cast Central venous access Age >= 75 History of VTE Family history of VTE Factor V Leiden Prothrombin [id number] Lupus anticoagulant Anticardiolipin antibodies Elevated serum homocysteine Heparin-induced thrombocytopenia Other congenital or acquired thrombophilia Stroke (< 1 month) Elective arthroplasty Hip, pelvis, or leg fracture Acute spinal cord injury (< 1 month) Prophylaxis Regimen: Total Risk Factor Score Risk Level Prophylaxis Regimen 0-1 Low Early ambulation 2 Moderate Order ONE of the following: *Sequential Compression Device (SCD) *Heparin 5000 units SQ BID 3-4 Higher Order ONE of the following medications: *Heparin 5000 units SQ TID *Enoxaparin/Lovenox 40 mg SQ daily (WT < 150 kg, CrCl > 30 mL/min) *Enoxaparin/Lovenox 30 mg SQ daily (WT < 150 kg, CrCl > 10-29 mL/min) *Enoxaparin/Lovenox 30 mg SQ BID (WT < 150 kg, CrCl > 30 mL/min) AND/OR *Sequential Compression Device (SCD) 5 or more Highest Order ONE of the following medications: *Heparin 5000 units SQ TID (Preferred with Epidurals) *Enoxaparin/Lovenox 40 mg SQ daily (WT < 150 kg, CrCl > 30 mL/min) *Enoxaparin/Lovenox 30 mg SQ daily (WT < 150 kg, CrCl > 10-29 mL/min) *Enoxaparin/Lovenox 30 mg SQ BID (WT < 150 kg, CrCl > 30 mL/min) AND *Sequential Compression Device (SCD) Assessment and Plan - Plan A/P - recently diagnosed PE/ DVT of the right lower extremity - pain and swelling of the right lower extremity seems to be getting worse and presented back to the hospital as a direct admission- was recently discharged from the hospital on Edoxaban- d/w today; will consult IR for possible thrombolysis- consulted Hematology. resume home pain meds. -Shingles- continue Acyclovir. -diabetes mellitus; hold metformin- start on accu-check with SSI. -endometrial cancer; f/u as outpatient. Discussed Condition With: and the patient.
[2018-02-26] MEDS ORDERED: Acetaminophen 325 MG Tablet PO PRN (14:20)
--- NOTE | 2018-02-26 16:22 | US ---
EXAM DATE: 02/26/2018 3:51 PM EDT AGE/SEX: 62 years / Female INDICATIONS: Right leg swelling. CLINICAL DATA: This is the patient's subsequent encounter. Patient reports that signs and symptoms h ave been present for 2 months and indicates a pain score of 10/10. MEDICAL/SURGICAL HISTORY: . Hypertension. Gastroesophageal reflux disease. Arthritis. Recent ri ght leg dvt. Diabetes. Endometrial cancer. . Hysterectomy. Tonsillectomy. Right chest port. [place] [facility] [place]26/2018. . TECHNIQUE: Venous ultrasound of both lower extremities was performed from the inguinal ligament to t he proximal calf. Real-time, color Doppler and spectral tracing, compression and augmentation techni ques were used. FINDINGS: Redemonstration of extensive occlusive and partially occlusive thrombus extending from the right iliac vein peripherally to the posterior tibial vein. Greater saphenous vein also appears occl uded. CONCLUSION: 1. 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 Electronically signed by: Jed Lebron MD 02/26/2018 4:20 PM EDT
[2018-02-26] MEDS: Morphine Sulfate 15 MG SR Tablet PO SCH ×2 (16:29→21:02)
[2018-02-26] MEDS: Insulin NovoLOG Aspart Correctional Sugar Inj SQ SCH ×2 (17:35→20:02)
--- NOTE | 2018-02-26 18:45 | MB ---
cc: Mely Riddle MD DATE: 02/26/2018 CHIEF COMPLAINT: 1. Lower extremity venous thromboembolism. 2. Metastatic endometrial cancer. HISTORY OF PRESENT ILLNESS: Ms. Pérez is a 62-year-old lady with history of type 2 diabetes mellitus and obesity, who initially presented to the hospital on 01/22/2018 with a 3-day history of lower extremity edema and shortness of breath, which had been progressively worsening. At that time, she was found to have bilateral subsegmental and segmental pulmonary emboli and occlusive deep venous thrombosis involving the right iliac, common femoral, superficial femoral, popliteal, and peroneal veins. She has been treated under the direction of Dr. Jemima Montes for metastatic endometrial cancer. She had been on carboplatin and paclitaxel; however, she had an infusion reaction after exposure to Taxol and has been on 3 cycles of single agent carboplatin with stability of disease. She was seen in clinic with worsening of lower extremity symptoms since hospital stay, including swelling and severe pain. This is impacting her quality of life. She was direct admitted to the hospital for consideration of thrombolysis procedure by the interventional radiology team. PAST MEDICAL HISTORY: DVT, endometrial cancer, hypertension, diabetes, and obesity. PAST SURGICAL HISTORY: Tonsillectomy and hysterectomy. SOCIAL HISTORY: Good support system. Lives in [facility]. CURRENT MEDICATIONS: Include: 1. Tylenol. 2. Acyclovir. 3. Insulin. 4. Morphine sulfate. 5. Oxycodone. PHYSICAL EXAMINATION: GENERAL: Overweight lady, chronically ill-appearing, no distress. CARDIOVASCULAR: Regular rate and rhythm. No murmurs. RESPIRATORY: Clear to auscultation bilaterally. ABDOMEN: Soft, nontender, nondistended, bowel sounds present. EXTREMITIES: With pain and swelling of the right leg. NEUROLOGIC: Grossly nonfocal. PSYCHIATRIC: Appropriate mood and affect. ASSESSMENT AND PLAN: Venous thromboembolism, currently on edoxaban therapy in the outpatient setting, worsening pain and swelling of the right lower extremity. We will admit and hold edoxaban for consideration of IR procedure. Her last edoxaban dose was at 8:00 n 02/25/2018. We will plan to start the patient on heparin drip starting at the time that her next dose would be due. We will plan for IR procedure tomorrow. Inpatient hematology service will continue to follow. MD REBECA Nixon , 06:32 PM , 06:43 PM KEENAN
[2018-02-26] MEDS ORDERED: Heparin Drip 25,000 UNIT/250 ML BAG IV.CONT PRN (19:52)
[2018-02-26 20:32] LABS: Activated Partial Thrombo Time 28.4 sec (24.3-30.1); INR 1.4 Ratio; Prothrombin Time 14.5 sec (9.8-11.6)
[2018-02-26] MEDS: Acyclovir 200 MG Capsule PO SCH (21:03)
[2018-02-26] MEDS: Heparin Drip 25,000 UNIT/250 ML BAG IV.CONT PRN (22:25)
[2018-02-26] MEDS ORDERED: HYDROmorphone PF Inj 2 MG/ML Vial IV.PUSH ONE (23:00)
[2018-02-27 05:00] LABS: INR 1.3 Ratio; Prothrombin Time 13.2 sec (9.8-11.6)
[2018-02-27 05:06] LABS: Baso # (Auto) 0.1 th/mm3 (0.0-0.2); Baso % (Auto) 0.3 % (0.0-2.0); Eos % (Auto) 0.2 % (0.0-4.0); Hematocrit 23.5 % (35.0-46.0); Hemoglobin 7.2 gm/dL (11.6-15.3); Lymph # (Auto) 1.5 th/mm3 (1.0-4.8); Lymph % (Auto) 8.2 % (9.0-44.0); Mean Corpuscular Hemoglobin 24.3 pg (27.0-34.0); Mean Corpuscular Volume 78.9 fL (80.0-100.0); Mono % (Auto) 5.3 % (0.0-8.0); Neut # (Auto) 15.9 th/mm3 (1.8-7.7); Platelet Count 119 th/mm3 (150-450); Red Blood Count 2.97 mil/mm3 (4.00-5.30); Red Cell Distribution Width 20.3 % (11.6-17.2); White Blood Count 18.4 th/mm3 (4.0-11.0)
[2018-02-27] MEDS: Morphine Sulfate 15 MG SR Tablet PO SCH ×3 (05:08→21:46)
[2018-02-27] MEDS: Acyclovir 200 MG Capsule PO SCH ×3 (05:09→21:46)
[2018-02-27 05:21] LABS: Anion Gap 12 meq/L (5-15); Blood Urea Nitrogen 8 mg/dL (7-18); Calcium 9.6 mg/dL (8.5-10.1); Chloride 92 meq/L (98-107); Glomerular Filtration Rate Greater Than 89 mL/min (>89); Glucose,Random 130 mg/dL (74-106); Potassium 3.6 meq/L (3.5-5.1); Sodium 134 meq/L (136-145)
[2018-02-27 06:00] LABS: Mean Corpuscular HGB Conc 30.8 % (32.0-36.0)
[2018-02-27] MEDS ORDERED: HYDROmorphone PF Inj 2 MG/ML Vial IV.PUSH ONE (09:32)
--- NOTE | 2018-02-27 09:32 | P.PN ---
Physical Exam Vital signs: Vital Signs 02/26/18 14:22 02/26/18 17:34 02/26/18 19:51 Temperature 99.8 F H 98.7 F Pulse Rate 103 H 99 H Respiratory Rate 21 18 20 Blood Pressure 142/73 H 136/72 Pulse Oximetry 93 L 94 L 02/26/18 20:09 02/27/18 00:00 02/27/18 00:18 Temperature 98.9 F Pulse Rate 98 H 100 H 101 H Respiratory Rate 20 Blood Pressure 139/72 Pulse Oximetry 92 L 02/27/18 04:00 02/27/18 04:06 Temperature 99.3 F Pulse Rate 99 H 97 H Respiratory Rate 16 Blood Pressure 132/70 Pulse Oximetry Intake & Output 02/26/18 02/27/18 02/27/18 18:59 06:59 18:59 Intake Total 200 / 200 480 / 480 Output Total 750 / 750 Balance 200 / 200 -270 / -270 Weight 93.7 kg Intake: Oral 200 / 200 480 / 480 Output: Urine 750 / 750 Other: # Voids 2 Date of Last Bowel Movement 02/19/18 Weight On Admission 207.5 kg Narrative: Subjective: Patient is in the chair she says she has extreme pain in her right leg and she cannot lay down. No fever. Reports chills. [place] nauseated in the morning however did not vomit. No diarrhea no constipation. No lightheadedness, shortness of breath or chest pain. Saturating well on 2 L nasal cannula. Physical exam: GENERAL: Well-nourished, well-developed patient in no apparent distress. SKIN: Low HEAD: Atraumatic. Normocephalic. EYES: Pupils equal and round. No scleral icterus. No injection or drainage. ENT: No nasal bleeding or discharge. Mucous membranes pink and moist. NECK: Trachea midline. No JVD. CARDIOVASCULAR: Regular rate and rhythm. RESPIRATORY: No accessory muscle use. Clear to auscultation. Breath sounds equal bilaterally. GASTROINTESTINAL: Abdomen soft, non-tender, nondistended. Hepatic and splenic margins not palpable. MUSCULOSKELETAL: Extremities without clubbing, cyanosis, or edema. No obvious deformities. NEUROLOGICAL: Awake and alert. No obvious cranial nerve deficits. Motor grossly within normal limits. Five out of 5 muscle strength in the arms and legs. Normal speech. PSYCHIATRIC: Appropriate mood and affect; insight and judgment normal. Assessment and Plan Recently diagnosed PE/ DVT of the right lower extremity - pain and swelling of the right lower extremity seems to be getting worse and presented back to the hospital as a direct admission- was recently discharged from the hospital on Edoxaban- d/w today; will consult IR for possible thrombolysis- consulted Hematology. resume home pain meds. Give Dilaudid IV 1 mg 1 time and continue with 0.5 mg prn for severe pain IR consulted for TPA Shingles- continue Acyclovir. Diabetes mellitus; hold metformin- start on accu-check with SSI. Endometrial cancer; f/u as outpatient. Discussed Condition With: Patient, nurse Results - Labs CBC & Chem 7: 02/27/18 04:00 02/27/18 04:00 Laboratory Results - last 24 hr 02/26/18 02/26/18 02/26/18 17:15 20:01 20:10 WBC RBC Hgb Hct MCV MCH MCHC RDW Plt Count MPV Neut % (Auto) Lymph % (Auto) [place] % (Auto) Eos % (Auto) Baso % (Auto) Neut # (Auto) Lymph # (Auto) [place] # (Auto) Eos # (Auto) Baso # (Auto) WBC Differential Differential Comment PT 14.5 H INR 1.4 APTT 28.4 Sodium Potassium Chloride Carbon Dioxide Anion Gap BUN Creatinine Estimated GFR POC Glucose 218 H 143 H Random Glucose Calcium 02/27/18 02/27/18 02/27/18 04:00 04:00 04:00 WBC 18.4 H RBC 2.97 L Hgb 7.2 L Hct 23.5 L MCV 78.9 L MCH 24.3 L MCHC 30.8 L RDW 20.3 H Plt Count 119 L D MPV 8.0 Neut % (Auto) 86.0 H Lymph % (Auto) 8.2 L [place] % (Auto) 5.3 Eos % (Auto) 0.2 Baso % (Auto) 0.3 Neut # (Auto) 15.9 H Lymph # (Auto) 1.5 [place] # (Auto) 1.0 H Eos # (Auto) 0.0 Baso # (Auto) 0.1 WBC Differential . Differential Comment Auto diff final PT 13.2 H INR 1.3 APTT 36.0 H D Sodium 134 L Potassium 3.6 Chloride 92 L Carbon Dioxide 30.0 Anion Gap 12 BUN 8 Creatinine 0.51 Estimated GFR Greater than 89 POC Glucose Random Glucose 130 H Calcium 9.6 02/27/18 07:58 WBC RBC Hgb Hct MCV MCH MCHC RDW Plt Count MPV Neut % (Auto) Lymph % (Auto) [place] % (Auto) Eos % (Auto) Baso % (Auto) Neut # (Auto) Lymph # (Auto) [place] # (Auto) Eos # (Auto) Baso # (Auto) WBC Differential Differential Comment PT INR APTT Sodium Potassium Chloride Carbon Dioxide Anion Gap BUN Creatinine Estimated GFR POC Glucose 169 H Random Glucose Calcium - Imaging Impressions Venous Doppler Study 02/26/18 00:00 CONCLUSION: 1. 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
[2018-02-27] MEDS: Insulin NovoLOG Aspart Correctional Sugar Inj SQ SCH ×3 (10:04→19:55)
[2018-02-27] MEDS: Heparin Drip 25,000 UNIT/250 ML BAG IV.CONT PRN (10:39)
[2018-02-27] MEDS ORDERED: fentaNYL Citrate Inj 250 MCG/5 ML Ampul ONE (14:16)
[2018-02-27] MEDS ORDERED: Iohexol 350 MG/ML 50 ML Vial (for Rad Diag) IVCONTRAST ONE (15:00)
[2018-02-27] MEDS: HYDROmorphone PF Inj 2 MG/ML Vial IV.PUSH PRN ×2 (15:00→19:00)
--- NOTE | 2018-02-27 16:20 | P.RAD ---
Post Procedure Progress Note - Pre Procedure Diagnosis (1) Venous thromboembolism - Post Procedure Diagnosis (1) Venous thromboembolism - Procedure Information Supervising Radiologist: Jorge Velasquez MD - Plan of Activity See PACS Report for procedural detail/treatment. Vascular - Venous Procedure right Leg Procedure(s): Thrombolysis - Access right Jugular Vein Jugular Vein (tip in ivc) - Additional Information Findings: ivc filter placed thrombolysis of right femoropopliteal segment starte high grade compression of rt external iliac vein
[2018-02-27] MEDS ORDERED: Cathflo Activase Inj 2 MG Vial IV.PUSH ONE (17:56)
[2018-02-27] MEDS ORDERED: Heparin/NS PF Inj 500 ML I-CATHETER PRN (20:10)
[2018-02-27] MEDS: Heparin Drip 25,000 UNIT/250 ML BAG IV.CONT SCH (21:06)
[2018-02-27 22:43] LABS: Baso % (Auto) 0.2 % (0.0-2.0); Eos % (Auto) 0.1 % (0.0-4.0); Hematocrit 25.2 % (35.0-46.0); Hemoglobin 7.7 gm/dL (11.6-15.3); Lymph # (Auto) 1.2 th/mm3 (1.0-4.8); Lymph % (Auto) 5.9 % (9.0-44.0); Mean Corpuscular Volume 78.3 fL (80.0-100.0); Mean Platelet Volume 7.8 fL (7.0-11.0); Mono # (Auto) 0.9 th/mm3 (0.0-0.9); Mono % (Auto) 4.6 % (0.0-8.0); Neut # (Auto) 18.3 th/mm3 (1.8-7.7); Neut % (Auto) 89.2 % (16.0-70.0); Platelet Count 137 th/mm3 (150-450); Red Blood Count 3.22 mil/mm3 (4.00-5.30); Red Cell Distribution Width 20.2 % (11.6-17.2); White Blood Count 20.5 th/mm3 (4.0-11.0)
[2018-02-27 22:50] LABS: Mean Corpuscular HGB Conc 30.6 % (32.0-36.0)
[2018-02-27 23:22] LABS: Activated Partial Thrombo Time 27.1 sec (24.3-30.1)
[2018-02-28] MEDS: Morphine Inj 4 MG/ML Vial IV.PUSH PRN ×5 (00:24→20:00)
[2018-02-28] MEDS: HYDROmorphone PF Inj 2 MG/ML Vial IV.PUSH PRN ×2 (01:06→06:42)
[2018-02-28] MEDS: Insulin NovoLOG Aspart Correctional Sugar Inj SQ SCH ×4 (02:07→17:29)
[2018-02-28] MEDS: Cathflo Activase Inj 10 MG in Sodium Chlor 0.9% Inj 500 ML I-CATHETER PRN (02:36)
--- NOTE | 2018-02-28 03:43 | P.CONCC ---
History of Present Illness Service: Critical care medicine Consult date: 02/28/18 Requesting Physician: Gilmar Garcia Reason for Consult: Medical Management Primary Care Provider: Ramez Robledo MD Family Provider: Ramez Robleod MD Chief Complaint: pain to the right leg. History of Present Illness: 62-year-old female with past medical history of recurrent endometrial cancer who was admitted to [facility] 01/22/18 after she presented with RLE swelling and SOB and was found to have bilateral segmental and subsegmental PE and extensive RLE DVT (u/s with R iliac/common and superficial femoral/popliteal and peroneal). She was started on heparin then transitioned to lovenox. She refused lovenox injections and thus was discharged on edoxaban. She had persistent RLE swelling and therefore was sent from PCP office to [place] as a direct admit on 02/26 to hospitalist service. She has undergone IVC filter placement and Dr. Velasquez has initiated thrombolysis to R fem-pop segment with TPA via R IJ sheath @ 1mg /hr and heparin drip at 500 units/hr. She has had some R leg pain, managed with oxycodone and oromorph and prn morphine. Overall, she states she is just anxious for discharge as soon as possible. Spd Manager consult ordered for medical management during day 02/27, however there was an issue with notification through new system and thus I am seeing her now. Review of Systems Constitutional: Denies headache(s) Eyes: Denies change in vision Ears, Nose, Mouth, and Throat: Denies tongue swelling Cardiovascular: Denies chest pain Respiratory: Denies coughing up blood Gastrointestinal: Denies abdominal pain Skin/Breast: Reports rash Psychiatric: Reports abnormal sleep pattern Endocrine: Denies rapid, pounding, or irregular heartbeat Hematologic/Lymphatic: Denies easy bleeding Allergic/Immunologic: Denies tongue swelling PMFSH - History History Provided By: Patient, Medical Record - Medical History Medical History: Medical History (Last Updated 02/28/18 @ 04:00 by Connie Hargrove MD) Diabetes Obesity (BMI 30.0-34.9) DVT (deep venous thrombosis) Endometrial cancer Endometrial cancer H/O: hysterectomy Hypertension Port-A-Cath in place - Surgical History Surgical History: Surgical History (Last Updated 02/28/18 @ 03:59 by Connie Hargrove MD) History of section Hx of tonsillectomy - Family History Family History: Family History (Last Updated 02/28/18 @ 04:01 by Connie Hargrove MD) Mother Brain aneurysm Diabetes Father CAD (coronary artery disease) - Tobacco History Second Hand Smoke Exposure: Yes Smoking Status: Never smoker - Alcohol History How Often Do You Have a Drink Containing Alcohol: Never - Substance Use History Substance History: No History of Abuse Medications and Allergies Active Medications: Active Medications Acetaminophen (Tylenol) 650 mg PO Q4H PRN PRN Reason: fever Acyclovir (Zovirax) 400 mg PO Q8HR LISA Last Admin: 02/27/18 21:46 Dose: 400 mg Dextrose (D50w Vial) 50 ml IV.PUSH UNSCH PRN PRN Reason: PER HYPOGLYCEMIA PROTOCOL Glucagon (Glucagon Inj) 1 mg OTHER PRN PRN PRN Reason: for Hypoglycemia Protocol Hydromorphone HCl (Dilaudid Pf Inj) 0.5 mg IV.PUSH Q4H PRN PRN Reason: PAIN 6-10;IF UNABLE TO TAKE PO Last Admin: 02/28/18 01:06 Dose: 0.5 mg Heparin Sodium/Dextrose (Heparin/D5w 25,000 U/250 Ml) 25,000 unit in 250 mls @ 18 mls/hr IV.CONT TITRATE PRN; Protocol PRN Reason: Per Protocol Last Titration: 02/27/18 19:00 Dose: 500 units/hr, 5 mls/hr Alteplase, Recombinant 10 mg/ (Sodium Chloride) 500 mls @ 0 mls/hr I-CATHETER TITRATE PRN; Protocol PRN Reason: Per Protocol Last Admin: 02/28/18 02:36 Dose: 1 mg/hr, 50 mls/hr Heparin Sodium/Sodium Chloride (Heparin/Ns Pf Inj) 500 mls @ 5 mls/hr I- CATHETER UNSCH PRN PRN Reason: if TPA stopped Heparin Sodium/Dextrose (Heparin/D5w 25,000 U/250 Ml) 25,000 unit in 250 mls @ 5 mls/hr IV.CONT .Q24H LISA; Protocol Last Admin: 02/27/18 21:06 Dose: Not Given Insulin Aspart (Novolog Insulin Correctional Sugar Inj) 0 unit SQ ACHS LISA; Protocol Last Admin: 02/28/18 02:07 Dose: Not Given Metoclopramide HCl (Reglan Inj) 5 mg IV.PUSH Q8H PRN; Protocol PRN Reason: NAUSEA OR VOMITING Morphine Sulfate (Oramorph Sr) 15 mg PO Q8HR LISA Last Admin: 02/27/18 21:46 Dose: 15 mg Morphine Sulfate (Morphine Inj) 2 mg IV.PUSH Q10M PRN PRN Reason: Pain Scale 1 - 4 Morphine Sulfate (Morphine Inj) 4 mg IV.PUSH Q3H PRN PRN Reason: PAIN 5-10 Last Admin: 02/28/18 00:24 Dose: 4 mg Ondansetron HCl (Zofran Odt) 4 mg PO Q6H PRN PRN Reason: NAUSEA OR VOMITING Oxycodone HCl (Roxicodone) 15 mg PO Q8H PRN PRN Reason: BREAKTHROUGH PAIN Last Admin: 02/27/18 10:00 Dose: 15 mg Allergies Allergy/AdvReac Type Severity Reaction Status Date / Time codeine Allergy Severe Verified 01/22/18 13:21 Home Medications Medication Instructions Recorded Confirmed Type acyclovir 400 mg PO Q4H 02/17/18 02/26/18 History metformin 500 mg PO BID 02/17/18 02/26/18 History morphine 15 mg PO Q8HR PRN 02/17/18 02/26/18 History oxycodone 15 mg PO Q4-6H 02/17/18 02/26/18 History Physical Exam Vital signs: Vital Signs 02/27/18 04:00 02/27/18 04:06 02/27/18 08:00 Temperature 99.3 F Pulse Rate 99 H 97 H 90 Respiratory Rate 16 Blood Pressure 132/70 Pulse Oximetry 02/27/18 17:30 02/27/18 20:00 02/28/18 00:00 Temperature 98.5 F 98.4 F 98.6 F Pulse Rate 116 H 105 H 106 H Respiratory Rate 22 23 22 Blood Pressure 162/84 H 142/69 H 138/69 Pulse Oximetry 98 100 99 Intake & Output 02/27/18 02/27/18 02/28/18 06:59 18:59 06:59 Intake Total 480 / 480 250 / 250 Output Total 750 / 750 Balance -270 / -270 250 / 250 Weight 93.7 kg Intake: IV 250 / 250 Heparin/D5W 25,000 U/250 mL 25, 250 / 250 000 unit In 250 ml @ 1,800 UNITS/HR 18 mls/hr IV.CONT TITRATE PRN Rx#:[id number] Oral 480 / 480 Output: Urine 750 / 750 Other: Date of Last Bowel Movement 02/19/18 02/19/18 02/19/18 Weight On Admission 207.5 kg Narrative: GENERAL: Overweight female who is sleeping when I improved, arouse to voice and is conversant. SKIN: Warm and dry. There is erythematous patch on medial aspect of right lower leg, no blisters or bullae. HEAD: Atraumatic. Normocephalic. EYES: Pupils equal and round, 3mm and reactive bilaterally. No scleral icterus. No injection or drainage. ENT: No nasal bleeding or discharge. Mucous membranes pink and moist. NECK: Trachea midline. R IJ Sheath in place with alteplase infusing. CARDIOVASCULAR: Regular rate and rhythm, sinus on monitor with rate 99-100. No murmurs rubs or gallops. RESPIRATORY: Breathing comfortably with no accessory muscle use, on NC. Clear to auscultation, equal bilat, diminished bibasilar. GASTROINTESTINAL: Abdomen soft, non-tender, nondistended. Healed scar lower abdomen. MUSCULOSKELETAL: Extremities without clubbing, cyanosis. Diffuse swelling of RLE , compartments soft, normal motor exam, palpable DP pulses bilaterally. NEUROLOGICAL: Awake and alert, oriented. No obvious cranial nerve deficits. Moves BUE spontaneously and symmetrically. Strength 5/5 ankle plantar dorsiflexion and hip flexion bilaterally. - Urinary Catheter Management Indwelling Urethral Catheter Cath placed during this visit: yes Reason for continuing: Acute urinary retention Insertion date: 02/28/18 Insertion time: 01:25 Assessment and Plan - Assessment and Plan Plan: NEURO: Pain Oramorph 15 q8 hours. Oxycodone 15 mg p.o. every 8 hours Morphine 4 mill grams IV every 3 hours as needed breakthrough pain. RESP: NC wean as tolerated f/u CXR CV: Monitor hemodynamics GI: Obesity Liquid diet per IR. FEN/RENAL: Urinary retention Bladder scan with 600 and unable to void, [place] inserted to avoid repeated I/O cath while on TPA/heparin infusion. ID: Leukocytosis ?reactive secondary to DVT. Will check u/a, culture if needed. Monitor for signs and symptoms of infection ?Shingles RLE Continuing acyclovir 400 mg every 8 hours HEME: Recurrent endometrial cancer s/p complete hysterectomy. She is followed by Dr. Montes. She states last chemo 12/2017. Bilateral pulmonary embolism and R LE extensive DVT Followed by hematology. Edoxaban 60 mg po daily outpatient is on hold. On heparin 500 units/hr and TPA 1 mg/hr via sheath with management per Invasive radiology. Monitoring Coags/fibrinogen q 6hours. IVC filter placed 02/27 Dr. Velasquez Chronic anemia Monitor CBC q6 hours ENDO: Diabetes mellitus Metformin on hold Monitor bedside glucose AC/at bedtime with low-dose insulin sliding scale as indicated. PROPH: TPA/heparin infusion as per above. Famotidine for stress ulcer prophylaxis. ACCESS: R chest port in place. R IJ Sheath in place since 02/27. She states she would want intubation and mechanical ventilation for respiratory failure but would want to be DNR for pulseless arrest. I am ordering alternate code intubation only.
[2018-02-28] MEDS: Acyclovir 200 MG Capsule PO SCH ×2 (05:08→14:27)
[2018-02-28] MEDS: Morphine Sulfate 15 MG SR Tablet PO SCH ×3 (05:08→22:09)
[2018-02-28 05:24] LABS: Baso % (Auto) 0.2 % (0.0-2.0); Eos % (Auto) 0.1 % (0.0-4.0); Hematocrit 24.3 % (35.0-46.0); Hemoglobin 7.5 gm/dL (11.6-15.3); Lymph % (Auto) 5.4 % (9.0-44.0); Mean Corpuscular Hemoglobin 24.4 pg (27.0-34.0); Mean Corpuscular Volume 79.1 fL (80.0-100.0); Mean Platelet Volume 7.7 fL (7.0-11.0); Mono # (Auto) 0.9 th/mm3 (0.0-0.9); Mono % (Auto) 4.8 % (0.0-8.0); Neut # (Auto) 16.8 th/mm3 (1.8-7.7); Neut % (Auto) 89.5 % (16.0-70.0); Platelet Count 124 th/mm3 (150-450); Red Blood Count 3.08 mil/mm3 (4.00-5.30); Red Cell Distribution Width 20.2 % (11.6-17.2); White Blood Count 18.8 th/mm3 (4.0-11.0)
--- NOTE | 2018-02-28 05:37 | XR ---
EXAM DATE: 02/28/2018 5:11 AM EDT AGE/SEX: 62 years / Female INDICATIONS: . Shortness of breath CLINICAL DATA: This is the patient's initial encounter. Patient reports that signs and symptoms have been present for 1 day and indicates a pain score of Nonresponsive. MEDICAL/SURGICAL HISTORY: . Endometrial cancer . section. Hysterectomy. [id number]. COMPARISON: [facility] [place], CHEST SINGLE AP, 02/02/2018. . FINDINGS: Right [id number] in superior vena cava. Minimal basilar atelectasis or scarring. No effusion or pn eumothorax. CONCLUSION: Minimal basilar atelectasis. No significant effusion. Electronically signed by: Lawrence Flower MD 02/28/2018 5:35 AM EDT
[2018-02-28 05:40] LABS: Activated Partial Thrombo Time 28.9 sec (24.3-30.1)
[2018-02-28 05:41] LABS: Mean Corpuscular HGB Conc 30.8 % (32.0-36.0)
[2018-02-28 06:07] LABS: Bilirubin,Urine Negative (Negative); Clarity,Urine Hazy (Clear); Color,Urine Yellow (Yellw/Straw); Glucose,Urine (UA) Negative (Negative); Hyaline Casts,Urine 1 /lpf (0-3); Leukocyte Esterase,Urine Trace (Negative); Mucus,Urine Few /lpf (Occasional); Nitrite,Urine Negative (Negative); Specific Gravity,Urine 1.023 (1.002-1.035); Squamous Epithelial Cell,Urine <1 /hpf (0-5); Urobilinogen,Urine 4 or Greater mg/dL (Less than 2)
[2018-02-28] MEDS: Famotidine 20 MG Tablet PO SCH (08:32)
[2018-02-28] MEDS ORDERED: fentaNYL Citrate Inj 250 MCG/5 ML Ampul ONE (15:19)
[2018-02-28] MEDS ORDERED: fentaNYL Citrate Inj 100 MCG/2 ML Ampul ONE (16:28)
[2018-02-28] MEDS ORDERED: HYDROmorphone PF Inj 2 MG/ML Vial ONE (17:14)
--- NOTE | 2018-02-28 18:31 | P.RAD ---
Post Procedure Progress Note - Procedure Information Supervising Radiologist: Erik Vu MD - Plan of Activity See PACS Report for procedural detail/treatment. Vascular - Venous Procedure right Leg Procedure(s): Angioplasty (RIGHT ILIAC SYSTEM - 12 MM), Venogram - Additional Information Findings: Good response to thrombolytic therapy in RLE DVT. Chronic appearing occlusion of right iliac in region of mass. WOOD [employer]ER to12mm with no significant response. Plan to bring patient back tomorrow with anesthesia for possible stenting of right iliac system
[2018-03-01] MEDS: Morphine Inj 4 MG/ML Vial IV.PUSH PRN ×3 (00:08→20:00)
--- NOTE | 2018-03-01 01:16 | P.PNONC ---
Subjective Interval history: Resting comfortably in bed. Late note entry. Patient seen at [facility] at approximately 7 pm on 02/28/2018. Objective Vital Signs/Intake & Output: Vital Signs 02/28/18 04:05 02/28/18 08:00 02/28/18 12:00 Temperature 98.4 F 99.0 F 99.1 F Pulse Rate 101 H 100 H Respiratory Rate 21 20 Blood Pressure 142/70 H 159/81 H 135/71 Pulse Oximetry 100 02/28/18 16:00 02/28/18 20:00 Temperature 98.7 F 97.9 F Pulse Rate 104 H 109 H Respiratory Rate Blood Pressure 160/74 H Pulse Oximetry 100 98 Intake & Output 02/28/18 02/28/18 03/01/18 06:59 18:59 06:59 Intake Total 0 / 0 500 / 500 Output Total 1050 / 1050 1800 / 1800 Balance -1050 / -1050 -1300 / -1300 Weight 94.6 kg Intake: IV 500 / 500 Cathflo Activase Inj 10 MG In 500 / 500 NS Inj 500 ML @ Per Protocol I- CATHETER TITRATE PRN Rx#: [id number] Oral 0 / 0 0 / 0 Output: Urine 750 / 750 Urine Amount (Catheter) 1050 / 1050 1050 / 1050 Indwelling Urethral Catheter 1050 / 1050 1050 / 1050 Other: # Voids 2 Date of Last Bowel Movement 02/19/18 02/19/18 02/19/18 Result Diagrams: 03/01/18 04:15 02/27/18 04:00 Laboratory Results: Laboratory Results - last 24 hr 02/28/18 02/28/18 02/28/18 05:00 05:00 05:30 WBC 18.8 H RBC 3.08 L Hgb 7.5 L Hct 24.3 L MCV 79.1 L MCH 24.4 L MCHC 30.8 L RDW 20.2 H Plt Count 124 L MPV 7.7 Neut % (Auto) 89.5 H Lymph % (Auto) 5.4 L [place] % (Auto) 4.8 Eos % (Auto) 0.1 Baso % (Auto) 0.2 Neut # (Auto) 16.8 H Lymph # (Auto) 1.0 [place] # (Auto) 0.9 Eos # (Auto) 0.0 Baso # (Auto) 0.0 WBC Differential . Differential Comment Auto diff final APTT 28.9 Fibrinogen 309 Urine Color Yellow Urine Clarity Hazy H Urine pH 5.0 Ur Specific [place] 1.023 Urine Protein 30 H Urine Glucose (UA) Negative Urine Ketones 20 Urine Occult Blood Small H Urine Nitrate Negative Urine Bilirubin Negative Urine Urobilinogen 4 or greater Ur Leukocyte Esterase Trace H Urine RBC 7 H Urine WBC 9 H Ur Squamous Epith Cells <1 Hyaline Casts 1 Urine Mucus Few H Micro UA Comment Cath-culture ind Urine Culture Comments Cath-cult indicated Imaging Studies: Impressions Chest X-Ray 02/28/18 00:00 CONCLUSION: Minimal basilar atelectasis. No significant effusion. Medications: Active Medications Generic Name Dose Route Start Last Admin Trade Name Freq PRN Reason Stop Dose Admin Acyclovir 400 mg 02/26/18 22:00 02/28/18 14:27 Zovirax PO 400 mg Q8HR LISA Administration Al Hydroxide/Mg Hydroxide 30 ml 02/28/18 13:15 02/28/18 17:32 Milk Of Magnsondra Liq PO Not Given Q12HR LISA Famotidine 20 mg 02/28/18 09:00 02/28/18 08:32 Pepcid PO 20 mg BID LISA Administration Hydromorphone HCl 0.5 mg 02/27/18 13:00 02/28/18 06:42 Dilaudid Pf Inj IV.PUSH 0.5 mg Q4H PRN Administration PAIN 6-10;IF UNABLE TO TAKE PO Heparin Sodium/Dextrose 25,000 unit in 250 mls @ 18 mls/hr 02/26/18 20:19 19:00 Heparin/D5w 25,000 U/250 Ml IV.CONT 500 units/hr TITRATE PRN 5 mls/hr Per Protocol Titration Protocol 1,800 UNITS/HR Alteplase, Recombinant 10 mg/ 500 mls @ 0 mls/hr 02/27/18 20:10 02/28/18 13: 22 Sodium Chloride I-CATHETER Infused TITRATE PRN Titration Per Protocol Protocol Per Protocol Heparin Sodium/Dextrose 25,000 unit in 250 mls @ 5 mls/hr 02/27/18 20:15 21:06 Heparin/D5w 25,000 U/250 Ml IV.CONT Not Given .Q24H LISA Protocol Insulin Aspart 0 unit 02/26/18 17:00 02/28/18 17:29 Novolog Insulin Correctional Sugar Inj SQ Not Given ACHS [facility] Protocol Morphine Sulfate 15 mg 02/26/18 14:00 02/28/18 22:09 Oramorph Sr PO 15 mg Q8HR LISA Administration Morphine Sulfate 4 mg 02/27/18 20:19 03/01/18 00:08 Morphine Inj IV.PUSH 4 mg Q3H PRN Administration PAIN 5-10 Oxycodone HCl 15 mg 02/26/18 13:58 02/27/18 10:00 Roxicodone PO 15 mg Q8H PRN Administration BREAKTHROUGH PAIN Objective Remarks: GENERAL: overweight, chronically ill appearing lady SKIN: Warm and dry. HEAD: Normocephalic. EYES: No scleral icterus. No injection or drainage. NECK: Supple, trachea midline. No JVD or lymphadenopathy. LYMPHATIC: No adenopathy. RESPIRATORY: No accessory muscle use. GASTROINTESTINAL: Abdomen soft, non-tender, nondistended. EXTREMITIES: No cyanosis, or edema. MUSCULOSKELETAL: Adequate muscle tone. NEUROLOGICAL: No obvious focal deficit. PSYCHIATRIC: drowsy from sedation Assessment/Plan - Plan 1. Venous thromboembolism: bilateral PE and extensive lower extremity VTE. On outpatient edoxaban did not have improvement in lower extremity swelling or pain. She is s/p thrombolysis by IR with noted extrinsic compression from pelvic mass. In out patient setting will need to resume edoxaban. 2. Leukocytosis: reactive due to hospitalization, procedure. continue to monitor. 3. Anemia: past iron profile from 01/30/2018 with ACD, ferritin of 790, low TIBC. Inflammatory anemia. 4. TCP, coagulopathy: management per IR team. 5. Metastatic endometrial cancer: will need close follow up with Dr. Gibson.
[2018-03-01] MEDS: Famotidine 20 MG Tablet PO SCH ×3 (02:37→20:00)
[2018-03-01] MEDS: Acyclovir 200 MG Capsule PO SCH ×3 (02:38→18:45)
[2018-03-01] MEDS: Cathflo Activase Inj 10 MG in Sodium Chlor 0.9% Inj 500 ML I-CATHETER PRN (03:32)
[2018-03-01] MEDS: Heparin Drip 25,000 UNIT/250 ML BAG IV.CONT SCH (03:34)
[2018-03-01 04:34] LABS: Baso # (Auto) 0.1 th/mm3 (0.0-0.2); Baso % (Auto) 0.2 % (0.0-2.0); Eos % (Auto) 0.1 % (0.0-4.0); Hematocrit 23.3 % (35.0-46.0); Hemoglobin 7.1 gm/dL (11.6-15.3); Lymph % (Auto) 4.5 % (9.0-44.0); Mean Corpuscular Hemoglobin 24.1 pg (27.0-34.0); Mean Platelet Volume 7.9 fL (7.0-11.0); Mono # (Auto) 0.9 th/mm3 (0.0-0.9); Neut % (Auto) 91.2 % (16.0-70.0); Platelet Count 116 th/mm3 (150-450); Red Blood Count 2.95 mil/mm3 (4.00-5.30); Red Cell Distribution Width 20.5 % (11.6-17.2); White Blood Count 21.9 th/mm3 (4.0-11.0)
[2018-03-01 04:39] LABS: Mean Corpuscular HGB Conc 30.5 % (32.0-36.0)
[2018-03-01 04:51] LABS: Activated Partial Thrombo Time 31.7 sec (24.3-30.1)
[2018-03-01] MEDS: Insulin NovoLOG Aspart Correctional Sugar Inj SQ SCH ×5 (07:29→22:36)
[2018-03-01] MEDS: Morphine Sulfate 15 MG SR Tablet PO SCH ×3 (07:29→22:00)
--- NOTE | 2018-03-01 08:23 | P.PNIM ---
Subjective Interval history: f/u; DVT in no acute distress. but complaining of pain to the right leg. d/w the RN and no other acute issues over night. awaiting IR procedure today. Physical Exam Vital signs: Vital Signs 02/28/18 12:00 02/28/18 16:00 02/28/18 20:00 Temperature 99.1 F 98.7 F 97.9 F Pulse Rate 104 H 109 H Respiratory Rate Blood Pressure 135/71 160/74 H Pulse Oximetry 100 100 98 03/01/18 00:00 03/01/18 02:30 03/01/18 02:32 Temperature Pulse Rate 103 H Respiratory Rate 22 20 20 Blood Pressure 141/66 H Pulse Oximetry 97 03/01/18 02:38 03/01/18 04:00 Temperature 97.9 F Pulse Rate Respiratory Rate 15 Blood Pressure 132/60 Pulse Oximetry 99 Intake & Output 02/28/18 03/01/18 03/01/18 18:59 06:59 18:59 Intake Total 500 / 500 0 / 0 Output Total 1800 / 1800 1550 / 1550 Balance -1300 / -1300 -1550 / -1550 Weight 98.4 kg Intake: IV 500 / 500 Cathflo Activase Inj 10 MG In 500 / 500 NS Inj 500 ML @ Per Protocol I- CATHETER TITRATE PRN Rx#: [id number] Oral 0 / 0 0 / 0 Output: Urine 750 / 750 750 / 750 Urine Amount (Catheter) 1050 / 1050 800 / 800 Indwelling Urethral Catheter 1050 / 1050 800 / 800 Other: # Voids 2 2 Date of Last Bowel Movement 02/19/18 02/19/18 - Constitutional no acute distress - Routine Respiratory Exam Present: CTA bilaterally - Routine Cardiovascular Exam Present: RRR - Routine Abdominal Exam Present: soft - Routine Extremities Exam Present: edema (right leg swelling.) - Routine Neurological Exam Present: alert, oriented X3 - Urinary Catheter Management Indwelling Urethral Catheter Cath placed during this visit: yes Reason for continuing: Acute urinary retention Insertion date: 02/28/18 Insertion time: 01:25 Results - Labs CBC & Chem 7: 03/01/18 04:15 02/27/18 04:00 Laboratory Results - last 24 hr 03/01/18 03/01/18 04:15 04:15 WBC 21.9 H RBC 2.95 L Hgb 7.1 L Hct 23.3 L MCV 79.0 L MCH 24.1 L MCHC 30.5 L RDW 20.5 H Plt Count 116 L MPV 7.9 Neut % (Auto) 91.2 H Lymph % (Auto) 4.5 L [place] % (Auto) 4.0 Eos % (Auto) 0.1 Baso % (Auto) 0.2 Neut # (Auto) 20.0 H Lymph # (Auto) 1.0 [place] # (Auto) 0.9 Eos # (Auto) 0.0 Baso # (Auto) 0.1 WBC Differential . Differential Comment Auto diff final APTT 31.7 H Fibrinogen 226 L Assessment and Plan - Plan A/P - recently diagnosed PE/ DVT of the right lower extremity - pain and swelling of the right lower extremity seems to be getting worse and presented back to the hospital as a direct admission- was recently discharged from the hospital on Edoxaban- IR consulted-s/p IVC filter placement and thrombolysis of right femoropopliteal segment. plan for possible stent placement in iliac system. continue with pain control. Hematology following. -urinary retention- johnson has been placed. -leukocytosis-likely reactive- CXR with no infiltrate and UA not impressive- will follow the UC and repeat CBC in am- will monitor the temps. -Shingles- continue Acyclovir. -diabetes mellitus; hold metformin- start on accu-check with SSI. -endometrial cancer; f/u as outpatient. Discharge Planning: for IR procedure today. dc planning when w/u completed and cleared by Hematology and IR.
[2018-03-01] MEDS: HYDROmorphone PF Inj 2 MG/ML Vial IV.PUSH PRN ×3 (08:50→18:46)
--- NOTE | 2018-03-01 12:03 | IR ---
EXAM DATE: 02/28/2018 6:54 PM EDT AGE/SEX: 62 years / Female INDICATIONS: Patient presents with right lower extremity deep vein thrombosis in need of angiogram t hru existing catheter for further evaluation. CLINICAL DATA: This is the patient's subsequent encounter. Patient reports that signs and symptoms h ave been present for 2 days and indicates a pain score of 8/10. MEDICAL/SURGICAL HISTORY: . RLE DVT Endometrial cancer HTN . Hysterectomy Port placement Tonsi llectomy COMPARISON: [facility], PET/CT TUMOR, 01/01/2018. . FLUORO TIME (min): 7.2 IMAGE SERIES: 11 ACCESS SITE: SEDATION TIME (min): 80 CONTRAST (cc): 65 cc Visipaque (iodixanol) MEDICATION(S): 7 mg midazolam (Versed) IV 0.5 mg hydromorphone (Dilaudid) IV 350 mcg fentanyl (Sublimaze) IV DEVICE(S): Right common iliac vein MANAGER [employer]ING Balloon 12.0mm x 40mm 135cm Right common iliac vein EV3 Infusion catheter 4fr 100cm 20cm . . PROCEDURE: 1. Conscious sedation with continuous EKG and Oximetry monitoring. 2. Angiography of the right SFV 3. 12 mm angioplasty, right common and external iliac vein. 4. TPA thrombolysis The risks, benefits and alternatives to the procedure were explained and verbal and written consent w as obtained. The site was prepped in sterile fashion. Full sterile technique was used, including ca p, mask, sterile gloves and gown and a large sterile sheet. Hand hygiene and 2% chlorhexidine and/or betadine/alcohol prep was utilized per protocol for cutaneous antisepsis. The skin and subcutaneous tissues were infiltrated with local anesthetic solution. Through the existing infusion catheter, contrast was injected showing excellent response to TPA thera py in the popliteal and superficial femoral veins. However, no significant flow through the iliac sys tem. The delivery sheath in the neck was exchanged for an 8 [place]ian, 25 cm side port sheath. 12 mm bal loon angioplasty was performed across the occluded iliac some shinto of flow. However, due to th e regional occluding mass lesion, the vascular lumen remained quite compromised. Despite extensive conscious sedation, patient had difficulty tolerating the procedure. In addition, t here was some residual thrombus within the narrowed iliac system. Therefore, TPA will be continued ov ernight and we'll plan further intervention with possible stenting tomorrow after discussing with the primary service. Conscious sedation was performed with the prescribed dosages and duration as above in the presence of an independent trained radiology nurse to assist in the monitoring of the patient. EKG and oximetry remained stable throughout the procedure. CONCLUSION: 1. Excellent response to TPA therapy and the popliteal and superficial femoral veins of the right lo wer extremity. 2. Right iliac system remain occluded. Post 12 mm [employer]NAGER [employer], there was some shinto of flow but the magali men remain compromised with some residual debris. 3. Will continue TPA infusion overnight and will consider further intervention with possible stentin g tomorrow. Electronically signed by: Erik Vu MD 03/01/2018 12:02 PM EDT
[2018-03-01] MEDS ORDERED: Ketamine Inj 50 MG/5 ML Syringe IV.PUSH ONE (13:11)
[2018-03-01] MEDS ORDERED: Propofol Inj 500 MG/50 ML Vial ONE (13:11)
[2018-03-01] MEDS ORDERED: Heparin 10,000 UNITS/10 ML Vial (for IV use) ONE (15:42)
[2018-03-01] MEDS ORDERED: Cathflo Activase Inj 2 MG Vial I-CATHETER ONE (15:47)
[2018-03-01] MEDS ORDERED: fentaNYL Citrate Inj 100 MCG/2 ML Ampul ONE (16:51)
--- NOTE | 2018-03-01 16:59 | P.RAD ---
Post Procedure Progress Note - Pre Procedure Diagnosis (1) Venous thromboembolism - Post Procedure Diagnosis (1) Venous thromboembolism - Procedure Information Supervising Radiologist: Erik Vu MD - Plan of Activity See PACS Report for procedural detail/treatment. Vascular - Venous Procedure - Additional Information Findings: Stented entire right iliac system with 3 Protege stents. Residual right lower extremity thrombus cleared with angiojet from popliteal to CIV
[2018-03-01] MEDS ORDERED: *morphine SULFATE 4 MG/ML PERIprocedure ONLY ONE (17:02)
[2018-03-01] MEDS ORDERED: Iohexol 350 MG/ML 50 ML Vial (for Rad Diag) IVCONTRAST ONE (17:08)
[2018-03-01] MEDS ORDERED: ceFAZolin 2 GM Premix Inj 2 GM/50 ML PIGGYBACK IV.SIG ONE (17:28)
[2018-03-01] MEDS ORDERED: Vancomycin Inj 1,000 MG in Sodium Chlor 0.9% Inj 250 ML IV.SIG ONE (19:00)
[2018-03-02 04:08] LABS: Baso # (Auto) 0.2 th/mm3 (0.0-0.2); Baso % (Auto) 0.6 % (0.0-2.0); Eos % (Auto) 0.1 % (0.0-4.0); Hematocrit 23.1 % (35.0-46.0); Hemoglobin 7.1 gm/dL (11.6-15.3); Lymph # (Auto) 1.1 th/mm3 (1.0-4.8); Lymph % (Auto) 3.7 % (9.0-44.0); Mean Corpuscular Hemoglobin 24.2 pg (27.0-34.0); Mean Corpuscular Volume 78.6 fL (80.0-100.0); Mono # (Auto) 1.1 th/mm3 (0.0-0.9); Mono % (Auto) 3.8 % (0.0-8.0); Neut # (Auto) 26.2 th/mm3 (1.8-7.7); Neut % (Auto) 91.8 % (16.0-70.0); Platelet Count 104 th/mm3 (150-450); Red Blood Count 2.94 mil/mm3 (4.00-5.30); Red Cell Distribution Width 20.7 % (11.6-17.2); White Blood Count 28.5 th/mm3 (4.0-11.0)
[2018-03-02] MEDS: HYDROmorphone PF Inj 2 MG/ML Vial IV.PUSH PRN ×3 (04:10→17:19)
[2018-03-02] MEDS: Acyclovir 200 MG Capsule PO SCH ×4 (04:11→21:41)
[2018-03-02 04:23] LABS: Mean Corpuscular HGB Conc 30.9 % (32.0-36.0)
[2018-03-02] MEDS: Morphine Sulfate 15 MG SR Tablet PO SCH ×3 (05:44→21:42)
[2018-03-02] MEDS: Famotidine 20 MG Tablet PO SCH ×2 (08:10→21:42)
[2018-03-02] MEDS: Morphine Inj 4 MG/ML Vial IV.PUSH PRN ×3 (08:10→20:05)
[2018-03-02] MEDS: Insulin NovoLOG Aspart Correctional Sugar Inj SQ SCH ×2 (08:11→17:25)
--- NOTE | 2018-03-02 08:23 | P.PNIM ---
Subjective Interval history: f/u; DVT in no acute distress. looks and feels more comfortable today. pain is better today. no other complaints. d/w the RN at the bedside and no acute issues over night. Physical Exam Vital signs: Vital Signs 03/01/18 09:03 03/01/18 16:38 03/01/18 16:45 Temperature 99.0 F Pulse Rate 109 H 106 H Respiratory Rate 19 17 19 Blood Pressure 163/74 H 158/78 H Pulse Oximetry 99 99 03/01/18 17:00 03/01/18 17:15 03/01/18 20:00 Temperature 99.0 F 98.2 F Pulse Rate 101 H 103 H 114 H Respiratory Rate 19 19 22 Blood Pressure 151/76 H 149/73 H 152/72 H Pulse Oximetry 99 99 97 03/01/18 22:00 03/02/18 00:00 03/02/18 02:00 Temperature 99.0 F Pulse Rate 116 H 112 H 107 H Respiratory Rate 22 24 Blood Pressure 135/63 135/70 Pulse Oximetry 96 94 L Intake & Output 03/01/18 03/02/18 03/02/18 18:59 06:59 18:59 Intake Total 240 / 240 720 / 720 Output Total 650 / 650 600 / 600 Balance -410 / -410 120 / 120 Weight 96.1 kg Intake: Oral 240 / 240 720 / 720 Output: Urine Amount (Catheter) 650 / 650 600 / 600 Indwelling Urethral Catheter 650 / 650 600 / 600 Other: Date of Last Bowel Movement 02/19/18 02/19/18 # Bowel Movements 0 - Constitutional no acute distress - Routine Respiratory Exam Present: CTA bilaterally - Routine Cardiovascular Exam Present: RRR - Routine Abdominal Exam Present: soft - Routine Extremities Exam Present: edema (right lower extremity.) - Routine Neurological Exam Present: alert, oriented X3 - Urinary Catheter Management Indwelling Urethral Catheter Cath placed during this visit: yes Reason for continuing: Acute urinary retention Insertion date: 02/28/18 Insertion time: 01:25 Results - Labs CBC & Chem 7: 03/02/18 03:45 02/27/18 04:00 Laboratory Results - last 24 hr 03/02/18 03:45 WBC 28.5 H RBC 2.94 L Hgb 7.1 L Hct 23.1 L MCV 78.6 L MCH 24.2 L MCHC 30.9 L RDW 20.7 H Plt Count 104 L MPV 8.0 Neut % (Auto) 91.8 H Lymph % (Auto) 3.7 L [place] % (Auto) 3.8 Eos % (Auto) 0.1 Baso % (Auto) 0.6 Neut # (Auto) 26.2 H Lymph # (Auto) 1.1 [place] # (Auto) 1.1 H Eos # (Auto) 0.0 Baso # (Auto) 0.2 WBC Differential . Differential Comment Auto diff final Microbiology 02/28/18 05:30 Catheterized Urine Urine Culture - Preliminary No growth in 24 hours - Imaging Impressions Miscellaneous Special Procedure 02/28/18 00:00 CONCLUSION: 1. Excellent response to TPA therapy and the popliteal and superficial femoral veins of the right lower extremity. 2. Right iliac system remain occluded. 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 3. Will continue TPA infusion overnight and will consider further intervention with possible stenting tomorrow. Assessment and Plan - Plan A/P - recently diagnosed PE/ DVT of the right lower extremity - presented back to the hospital as a direct admission because of worsening pain and swelling of the right leg. was recently discharged from the hospital on Edoxaban- IR consulted-s/p IVC filter placement and thrombolysis of right femoropopliteal segment and stent placement in iliac system. on Heparin drip. continue with pain control. Hematology and IR following. -urinary retention- johnson has been placed. -leukocytosis-likely reactive- CXR with no infiltrate and UA not impressive- will follow the UC and repeat CBC in am- will monitor the temps. -Shingles- continue Acyclovir. -diabetes mellitus; hold metformin- started on accu-check with SSI. -endometrial cancer; f/u as outpatient. transfer to floor. Discharge Planning: dc planning when w/u completed and cleared by Hematology and IR.
[2018-03-02] MEDS: Heparin Drip 25,000 UNIT/250 ML BAG IV.CONT SCH (14:38)
[2018-03-03] MEDS: HYDROmorphone PF Inj 2 MG/ML Vial IV.PUSH PRN ×4 (00:18→21:16)
[2018-03-03] MEDS: Morphine Inj 4 MG/ML Vial IV.PUSH PRN ×4 (03:30→11:42)
[2018-03-03] MEDS: Insulin NovoLOG Aspart Correctional Sugar Inj SQ SCH ×6 (05:25→20:55)
[2018-03-03] MEDS: Morphine Sulfate 15 MG SR Tablet PO SCH ×3 (05:26→21:17)
[2018-03-03] MEDS: Acyclovir 200 MG Capsule PO SCH ×2 (05:26→21:17)
[2018-03-03 06:08] LABS: Baso # (Auto) 0.1 th/mm3 (0.0-0.2); Baso % (Auto) 0.2 % (0.0-2.0); Eos % (Auto) 0.1 % (0.0-4.0); Hematocrit 21.4 % (35.0-46.0); Lymph % (Auto) 3.7 % (9.0-44.0); Mean Corpuscular Hemoglobin 23.8 pg (27.0-34.0); Mean Corpuscular Volume 78.5 fL (80.0-100.0); Mean Platelet Volume 8.5 fL (7.0-11.0); Mono % (Auto) 3.8 % (0.0-8.0); Neut # (Auto) 25.2 th/mm3 (1.8-7.7); Neut % (Auto) 92.2 % (16.0-70.0); Platelet Count 106 th/mm3 (150-450); Red Blood Count 2.73 mil/mm3 (4.00-5.30); Red Cell Distribution Width 20.9 % (11.6-17.2); White Blood Count 27.4 th/mm3 (4.0-11.0)
[2018-03-03 06:16] LABS: Mean Corpuscular HGB Conc 30.4 % (32.0-36.0)
[2018-03-03 06:19] LABS: Hemoglobin 6.5 gm/dL (11.6-15.3)
[2018-03-03] MEDS ORDERED: Sodium Chlor 0.9% Inj 250 ML IV.SIG SCH (07:00)
--- NOTE | 2018-03-03 07:58 | P.PNIM ---
Subjective Interval history: f/u; DVT in no acute distress. pain to the right leg is slowly improving. had a fever last night; Tmax 101. no cough or sob. Physical Exam Vital signs: Vital Signs 03/02/18 08:00 03/02/18 13:00 03/02/18 14:00 Temperature 98.0 F Pulse Rate 94 H 105 H 114 H Respiratory Rate 18 Blood Pressure 110/57 L Pulse Oximetry 92 L 03/02/18 15:00 03/02/18 16:00 03/02/18 17:00 Temperature 98.1 F Pulse Rate 110 H 118 H 112 H Respiratory Rate 18 Blood Pressure 111/60 Pulse Oximetry 92 L 03/02/18 18:00 03/02/18 20:00 03/03/18 00:00 Temperature 101 F H 98.6 F Pulse Rate 130 H 128 H 116 H Respiratory Rate 20 20 Blood Pressure 114/57 L 119/61 Pulse Oximetry 93 L 92 L 03/03/18 01:30 03/03/18 04:00 Temperature 100 F H Pulse Rate 120 H 120 H Respiratory Rate 20 Blood Pressure 118/61 Pulse Oximetry 93 L Intake & Output 03/02/18 03/03/18 03/03/18 18:59 06:59 18:59 Intake Total 240 / 240 480 / 480 Output Total 300 / 300 300 / 300 Balance -60 / -60 180 / 180 Weight 103 kg Intake: Oral 240 / 240 480 / 480 Output: Urine 300 / 300 Urine Amount (Catheter) 300 / 300 Indwelling Urethral Catheter 300 / 300 Other: Date of Last Bowel Movement 02/19/18 03/03/18 # Bowel Movements 0 4 - Constitutional no acute distress - Routine Respiratory Exam Present: CTA bilaterally - Routine Cardiovascular Exam Present: tachycardia - Routine Abdominal Exam Present: soft - Routine Extremities Exam Comments: edema of the right leg- tenderness is better. - Routine Neurological Exam Present: alert, oriented X3 - Urinary Catheter Management Indwelling Urethral Catheter Cath placed during this visit: yes Reason for continuing: Acute urinary retention Insertion date: 02/28/18 Insertion time: 01:25 Results - Labs CBC & Chem 7: 03/03/18 05:15 02/27/18 04:00 Laboratory Results - last 24 hr 03/02/18 03/03/18 03/03/18 19:15 02:00 05:15 WBC 27.4 H RBC 2.73 L Hgb 6.5 L* Hct 21.4 L MCV 78.5 L MCH 23.8 L MCHC 30.4 L RDW 20.9 H Plt Count 106 L MPV 8.5 Prelim Diff (Auto) Slide review pending Neut % (Auto) 92.2 H Lymph % (Auto) 3.7 L [place] % (Auto) 3.8 Eos % (Auto) 0.1 Baso % (Auto) 0.2 Neut # (Auto) 25.2 H Lymph # (Auto) 1.0 [place] # (Auto) 1.0 H Eos # (Auto) 0.0 Baso # (Auto) 0.1 Differential Comment . APTT 67.9 H D 35.5 H D MTS Gel Crossmatch 03/03/18 07:15 WBC RBC Hgb Hct MCV MCH MCHC RDW Plt Count MPV Prelim Diff (Auto) Neut % (Auto) Lymph % (Auto) [place] % (Auto) Eos % (Auto) Baso % (Auto) Neut # (Auto) Lymph # (Auto) [place] # (Auto) Eos # (Auto) Baso # (Auto) Differential Comment APTT MTS Gel Crossmatch See Detail Microbiology 02/28/18 05:30 Catheterized Urine Urine Culture - Final No growth in 48 hours Assessment and Plan - Plan A/P - recently diagnosed PE/ DVT of the right lower extremity - presented back to the hospital as a direct admission because of worsening pain and swelling of the right leg. was recently discharged from the hospital on Edoxaban- IR consulted-s/p IVC filter placement and thrombolysis of right femoropopliteal segment and stent placement in iliac system. on Heparin drip. continue with pain control. Hematology and IR following. -urinary retention- johnson has been placed. -leukocytosis/fever-likely reactive-however due to persistent leukocytosis and fever will obtain blood cultures and repeat UA. CXR -on 02/28 with no infiltrate -continue to monitor temps and CBC. -anemia- likely due to chronic disease- now with a drop in H/H- will transfuse with PRBC and continue to monitor. -Shingles- continue Acyclovir. -diabetes mellitus; hold metformin- started on accu-check with SSI. -endometrial cancer; f/u as outpatient. Discharge Planning: dc planning when cleared by Hematology and IR.
[2018-03-03] MEDS: Famotidine 20 MG Tablet PO SCH ×2 (08:05→21:17)
--- NOTE | 2018-03-03 11:03 | IR ---
EXAM DATE: 03/01/2018 5:17 PM EDT AGE/SEX: 62 years / Female INDICATIONS: Patient presents with right lower extremity deep vein thrombosis in need CLINICAL DATA: This is the patient's subsequent encounter. Patient reports that signs and symptoms h ave been present for 2 days and indicates a pain score of 8/10. MEDICAL/SURGICAL HISTORY: . Endometrial carcinoma with metastasis Chronic pain History of multi ple UTIs Obesity Hypertension History of vascular access with port . Status post port placement righ t side of chest section Hysterectomy total with bilateral salpingo-oophorectomy Tonsillectom y COMPARISON: [facility], ANGIOGRAM, FU THRU EXIST CATH RT, 02/28/2018. . FLUORO TIME (min): 18.1 IMAGE SERIES: 17 ACCESS SITE: CONTRAST (cc): 70 Omnipaque (iohexol) 350 MEDICATION(S): 3,000 Heparin IV Anesthesia and pain control was provided by the Anesthesia department. DEVICE(S): Right common femoral vein P[employer] Balloon & RT com. Iliac 12.0mmx 80mm Right common femoral vein stent (self expanding) & RT ext. Iliac junction 12 x 60 Right common iliac vein stent (self expanding) 14 x 80 Right common iliac vein stent (self expanding) 14 x 60 Right femoral popliteal graft vein mechanical thrombectomy Angiojet 120cm x 6fr . . PROCEDURE: 1. Conscious sedation with continuous EKG and Oximetry monitoring. 2. Angiography of the right lower extremity deep venous system and right iliac vein. 3. Stent placement, right iliac vein 4. [place] AngioJet, right popliteal, SFV and iliac veins The risks, benefits and alternatives to the procedure were explained and verbal and written consent w as obtained. The site was prepped in sterile fashion. Full sterile technique was used, including ca p, mask, sterile gloves and gown and a large sterile sheet. Hand hygiene and 2% chlorhexidine and/or betadine/alcohol prep was utilized per protocol for cutaneous antisepsis. The skin and subcutaneous tissues were infiltrated with local anesthetic solution. Injection through the infusion catheter showed persistent severe stenosis through the right iliac sys tem but improved flow when compared to priors. Discussed findings with Dr. Riddle from oncology as well as the primary service. Patient has a large pelvic mass lesion resulting in the significant sten osis. Resulting swelling is lifestyle limiting. Therefore, it was decided to proceed with stenting of the right iliac system. The 8 [place]auan sheath in the right IJ was exchanged for a 55 cm 8 [place]au[place] Stacie. A 6 cm x 12 mm Protege stent was deployed at the beginning of the occlusion near the junction of the common femoral and external iliac vein. A second, 8 x 14 mm Protege stent was then extended across t he iliac. Finally, a 6 x 14 Protege stent was used to bridge the middle stent and the patient central common iliac vein. The entire system was then balloon dilated to 10 to 14 mm depending on location. After balloon angioplasty, still appeared to be limited flow with debris within the iliac system as w ell as in the superficial femoral vein. Therefore, 6 [place]au[place] AngioJet was advanced through the sheath down to the popliteal vein. The AngioJet was passed through the entire deep venous system and the elba ac vein to clear the residual thrombus. Contrast injection showed congregation of contiguous flow from the right lower extremity into the IVC with only minimal, nonobstructing mural thrombus. Conscious sedation was performed with the prescribed dosages and duration as above in the presence of an independent trained radiology nurse to assist in the monitoring of the patient. EKG and oximetry remained stable throughout the procedure. CONCLUSION: 1. Extensive stenting of the right iliac venous system due to tumoral obstruction as detailed above. 2. [place] AngioJet of the popliteal, SFV and right iliac venous system with congregation of contiguou s outflow. Electronically signed by: Erik Vu MD 03/03/2018 11:02 AM EDT
--- NOTE | 2018-03-03 11:14 | P.RAD ---
Radiology Note OK to D/C patient from IR prospective. Probably needs chronic oral anticoagulation to maintain right Iliac vein stent patency. F/U as clinically warranted.
[2018-03-03 12:43] LABS: Bacteria,Urine Occasional /hpf; Hyaline Casts,Urine 1 /lpf (0-3); Mucus,Urine Many /lpf (Occasional)
[2018-03-03 12:55] LABS: Bilirubin,Urine Small (Negative); Clarity,Urine Clear (Clear); Glucose,Urine (UA) 100 mg/dL (Negative); Leukocyte Esterase,Urine Negative (Negative); Nitrite,Urine Positive (Negative); PH,Urine 5.5 (5.0-8.5)
[2018-03-03 13:01] LABS: Color,Urine Amber (Yellw/Straw); Ictotest,Urine Positive (Negative)
[2018-03-03 13:02] LABS: Specific Gravity,Urine 1.023 (1.002-1.035)
[2018-03-03] MEDS: Heparin Drip 25,000 UNIT/250 ML BAG IV.CONT SCH ×2 (17:14→20:45)
[2018-03-04] MEDS: HYDROmorphone PF Inj 2 MG/ML Vial IV.PUSH PRN ×2 (04:30→09:17)
[2018-03-04 05:09] LABS: Anion Gap 7 meq/L (5-15); Baso % (Auto) 0.1 % (0.0-2.0); Blood Urea Nitrogen 12 mg/dL (7-18); Carbon Dioxide 31.5 meq/L (21.0-32.0); Chloride 99 meq/L (98-107); Eos # (Auto) 0.1 th/mm3 (0.0-0.4); Eos % (Auto) 0.5 % (0.0-4.0); Glomerular Filtration Rate Greater Than 89 mL/min (>89); Glucose,Random 101 mg/dL (74-106); Hematocrit 25.5 % (35.0-46.0); Hemoglobin 8.3 gm/dL (11.6-15.3); Lymph % (Auto) 4.6 % (9.0-44.0); Mean Corpuscular HGB Conc 32.7 % (32.0-36.0); Mean Corpuscular Hemoglobin 25.8 pg (27.0-34.0); Mean Platelet Volume 8.3 fL (7.0-11.0); Mono # (Auto) 0.8 th/mm3 (0.0-0.9); Mono % (Auto) 3.9 % (0.0-8.0); Neut # (Auto) 19.3 th/mm3 (1.8-7.7); Neut % (Auto) 90.9 % (16.0-70.0); Platelet Count 106 th/mm3 (150-450); Potassium 3.6 meq/L (3.5-5.1); Red Blood Count 3.23 mil/mm3 (4.00-5.30); Red Cell Distribution Width 19.4 % (11.6-17.2); Sodium 137 meq/L (136-145); White Blood Count 21.3 th/mm3 (4.0-11.0)
[2018-03-04] MEDS: Morphine Sulfate 15 MG SR Tablet PO SCH ×3 (06:35→22:05)
[2018-03-04] MEDS: Acyclovir 200 MG Capsule PO SCH ×3 (06:35→22:05)
--- NOTE | 2018-03-04 08:06 | P.PNIM ---
Subjective Interval history: f/u; DVT in no acute distress. looks fairly comfortable. T max 100. family at the bedside. d/w the RN. Physical Exam Vital signs: Vital Signs 03/03/18 09:06 03/03/18 09:21 03/03/18 09:36 Temperature 98.4 F 98.2 F 98.3 F Pulse Rate 110 H 115 H 102 H Respiratory Rate Blood Pressure 132/63 130/63 124/66 Pulse Oximetry 03/03/18 10:02 03/03/18 12:00 03/03/18 12:07 Temperature 98.2 F 98.4 F Pulse Rate 105 H 108 H Respiratory Rate 3 L 20 Blood Pressure 124/64 129/67 Pulse Oximetry 94 L 03/03/18 12:22 03/03/18 12:37 03/03/18 16:00 Temperature 98.2 F 98.1 F 98.6 F Pulse Rate 101 H 100 H 107 H Respiratory Rate 20 Blood Pressure 134/68 142/70 H 130/76 Pulse Oximetry 95 03/03/18 20:00 03/04/18 00:00 03/04/18 04:00 Temperature 99.7 F H 99.4 F 100 F H Pulse Rate 93 H 93 H 91 H Respiratory Rate 16 16 16 Blood Pressure 123/58 L 151/69 H 152/63 H Pulse Oximetry 92 L 92 L 92 L 03/04/18 06:00 03/04/18 07:48 03/04/18 07:59 Temperature 99.1 F Pulse Rate 94 H 97 H 99 H Respiratory Rate 16 Blood Pressure 140/61 Pulse Oximetry 90 L Intake & Output 03/03/18 03/04/18 03/04/18 18:59 06:59 18:59 Intake Total 1220 / 1220 480 / 480 Output Total 800 / 800 750 / 750 Balance 420 / 420 -270 / -270 Weight 103 kg Intake: IV 250 / 250 Heparin/D5W 25,000 U/250 mL 25, 250 / 250 000 unit In 250 ml @ 10 mls/hr IV.CONT .Q24H [facility] Rx#:[id number] Oral 970 / 970 480 / 480 Intake (Blood Product) Amt 0 / 0 Rbc As-3 Leukoreduced Unit 0 / 0 [id number] Rbc As-3 Leukoreduced Unit 0 / 0 [id number] Output: Urine 750 / 750 Urine Amount (Catheter) 800 / 800 Indwelling Urethral Catheter 800 / 800 Other: Date of Last Bowel Movement 03/03/18 03/04/18 # Bowel Movements 2 - Constitutional no acute distress - Routine Respiratory Exam Present: CTA bilaterally - Routine Cardiovascular Exam Present: RRR - Routine Abdominal Exam Present: soft - Routine Extremities Exam Present: edema (right leg- seems to be improving.) - Routine Neurological Exam Present: alert, oriented X3 - Urinary Catheter Management Indwelling Urethral Catheter Cath placed during this visit: yes Reason for continuing: Acute urinary retention Insertion date: 02/28/18 Insertion time: 01:25 Results - Labs CBC & Chem 7: 03/04/18 04:20 03/04/18 04:20 Laboratory Results - last 24 hr 03/03/18 03/03/18 03/03/18 05:15 07:15 08:53 WBC RBC Hgb Hct MCV MCH MCHC RDW Plt Count MPV Neut % (Auto) Lymph % (Auto) [place] % (Auto) Eos % (Auto) Baso % (Auto) Neut # (Auto) Lymph # (Auto) [place] # (Auto) Eos # (Auto) Baso # (Auto) WBC Differential . Diff Scan Auto diff confirmed Differential Comment APTT 29.9 Sodium Potassium Chloride Carbon Dioxide Anion Gap BUN Creatinine Estimated GFR POC Glucose Random Glucose Calcium Urine Color Urine Clarity Urine pH Ur Specific [place] Urine Protein Urine Glucose (UA) Urine Ketones Urine Occult Blood Urine Nitrate Urine Bilirubin Urine Ictotest Urine Urobilinogen Ur Leukocyte Esterase Urine RBC Urine WBC Urine Bacteria Hyaline Casts Urine Mucus Micro UA Comment Urine Culture Comments Blood Type AB Positive Antibody Screen Negative MTS Gel Crossmatch See Detail 03/03/18 03/03/18 03/03/18 11:30 11:56 15:07 WBC RBC Hgb Hct MCV MCH MCHC RDW Plt Count MPV Neut % (Auto) Lymph % (Auto) [place] % (Auto) Eos % (Auto) Baso % (Auto) Neut # (Auto) Lymph # (Auto) [place] # (Auto) Eos # (Auto) Baso # (Auto) WBC Differential Diff Scan Differential Comment APTT 32.9 H Sodium Potassium Chloride Carbon Dioxide Anion Gap BUN Creatinine Estimated GFR POC Glucose 193 H Random Glucose Calcium Urine Color Sarina H Urine Clarity Clear Urine pH 5.5 Ur Specific [place] 1.023 Urine Protein 100 H Urine Glucose (UA) 100 H Urine Ketones Negative Urine Occult Blood Moderate H Urine Nitrate Positive H Urine Bilirubin Small H Urine Ictotest Positive H Urine Urobilinogen 2.0 H Ur Leukocyte Esterase Negative Urine RBC 5 H Urine WBC 2 Urine Bacteria Occasional H Hyaline Casts 1 Urine Mucus Many H Micro UA Comment Cath-culture ind Urine Culture Comments Cath-cult indicated Blood Type Antibody Screen MTS Gel Crossmatch 03/03/18 03/03/18 03/03/18 17:10 19:50 21:15 WBC RBC Hgb Hct MCV MCH MCHC RDW Plt Count MPV Neut % (Auto) Lymph % (Auto) [place] % (Auto) Eos % (Auto) Baso % (Auto) Neut # (Auto) Lymph # (Auto) [place] # (Auto) Eos # (Auto) Baso # (Auto) WBC Differential Diff Scan Differential Comment APTT 33.6 H Sodium Potassium Chloride Carbon Dioxide Anion Gap BUN Creatinine Estimated GFR POC Glucose 143 H 138 H Random Glucose Calcium Urine Color Urine Clarity Urine pH Ur Specific [place] Urine Protein Urine Glucose (UA) Urine Ketones Urine Occult Blood Urine Nitrate Urine Bilirubin Urine Ictotest Urine Urobilinogen Ur Leukocyte Esterase Urine RBC Urine WBC Urine Bacteria Hyaline Casts Urine Mucus Micro UA Comment Urine Culture Comments Blood Type Antibody Screen MTS Gel Crossmatch 03/04/18 03/04/18 03/04/18 04:20 04:20 04:20 WBC 21.3 H RBC 3.23 L Hgb 8.3 L Hct 25.5 L MCV 79.0 L MCH 25.8 L MCHC 32.7 RDW 19.4 H Plt Count 106 L MPV 8.3 Neut % (Auto) 90.9 H Lymph % (Auto) 4.6 L [place] % (Auto) 3.9 Eos % (Auto) 0.5 Baso % (Auto) 0.1 Neut # (Auto) 19.3 H Lymph # (Auto) 1.0 Walker # (Auto) 0.8 Eos # (Auto) 0.1 Baso # (Auto) 0.0 WBC Differential . Diff Scan Differential Comment Auto diff final APTT 32.5 H Sodium 137 Potassium 3.6 Chloride 99 Carbon Dioxide 31.5 Anion Gap 7 BUN 12 Creatinine 0.57 Estimated GFR Greater than 89 POC Glucose Random Glucose 101 Calcium 9.0 Urine Color Urine Clarity Urine pH Ur Specific [place] Urine Protein Urine Glucose (UA) Urine Ketones Urine Occult Blood Urine Nitrate Urine Bilirubin Urine Ictotest Urine Urobilinogen Ur Leukocyte Esterase Urine RBC Urine WBC Urine Bacteria Hyaline Casts Urine Mucus Micro UA Comment Urine Culture Comments Blood Type Antibody Screen MTS Gel Crossmatch - Imaging Impressions Miscellaneous Special Procedure 03/01/18 00:00 CONCLUSION: 1. Extensive stenting of the right iliac venous system due to tumoral obstruction as detailed above. 2. Possis AngioJet of the popliteal, SFV and right iliac venous system with yarsani of contiguous outflow. Assessment and Plan - Plan A/P - recently diagnosed PE/ DVT of the right lower extremity - presented back to the hospital as a direct admission because of worsening pain and swelling of the right leg. was recently discharged from the hospital on Edoxaban- IR consulted-s/p IVC filter placement and thrombolysis of right femoropopliteal segment and stent placement in iliac system. on Heparin drip. continue with pain control. cleared by IR for discharge- awaiting hematology f/u/ recommendations. -sepsis likely due to UTI- started on IV Rocephin- follow the cultures. monitor temps-CXR today. CBC in AM. -urinary retention- remove johnson cath; voiding trial today. -anemia- likely due to chronic disease- with a drop in H/H- s/p PRBC transfusion- continue to monitor. -Shingles- continue Acyclovir. -diabetes mellitus; hold metformin- started on accu-check with SSI. -endometrial cancer; f/u as outpatient. Discharge Planning: patient is willing to go to rehab. case management consulted. possible dc to rehab in 24-48 hrs if remains stable, afebrile and cleared by Hematology.
[2018-03-04] MEDS: Insulin NovoLOG Aspart Correctional Sugar Inj SQ SCH ×4 (08:08→22:06)
--- NOTE | 2018-03-04 08:46 | XR ---
EXAM DATE: 03/04/2018 8:28 AM EDT AGE/SEX: 62 years / Female INDICATIONS: Short of breath. CLINICAL DATA: This is the patient's subsequent encounter. Patient reports that signs and symptoms h ave been present for 4 - 6 days and indicates a pain score of 5/10. MEDICAL/SURGICAL HISTORY: . Endometrial cancer . section. Hysterectomy. . Infus-a-p ort. COMPARISON: [facility] [place]ST 1V SINGLE AP, 02/28/2018. . FINDINGS: A single AP view of the chest demonstrates the lungs to be symmetrically aerated without evidence of mass, infiltrate or effusion. The cardiomediastinal contours are unremarkable. Osseous structures a re intact. Right-sided PowerPort. CONCLUSION: No acute cardiopulmonary disease. Electronically signed by: Soren Appiah MD 03/04/2018 8:45 AM EDT
[2018-03-04] MEDS: Famotidine 20 MG Tablet PO SCH ×2 (09:17→22:05)
[2018-03-04] MEDS: Morphine Inj 4 MG/ML Vial IV.PUSH PRN (12:14)
--- NOTE | 2018-03-04 13:55 | P.PNONC ---
Subjective Interval history: T-max 100.0 overnight Patient currently receiving heparin infusion Complains of persistent pain in right lower extremity as well as chronic back pain Denies bleeding Reports she is allergic to Lovenox Objective Vital Signs/Intake & Output: Vital Signs 03/03/18 16:00 03/03/18 20:00 03/04/18 00:00 Temperature 98.6 F 99.7 F H 99.4 F Pulse Rate 107 H 93 H 93 H Respiratory Rate 20 16 16 Blood Pressure 130/76 123/58 L 151/69 H Pulse Oximetry 95 92 L 92 L 03/04/18 04:00 03/04/18 06:00 03/04/18 07:48 Temperature 100 F H 99.1 F Pulse Rate 91 H 94 H 97 H Respiratory Rate 16 16 Blood Pressure 152/63 H 140/61 Pulse Oximetry 92 L 90 L 03/04/18 07:59 03/04/18 10:04 03/04/18 12:00 Temperature 98.7 F Pulse Rate 99 H 97 H Respiratory Rate 18 16 Blood Pressure 126/74 Pulse Oximetry 96 Intake & Output 03/03/18 03/04/18 03/04/18 18:59 06:59 18:59 Intake Total 1220 / 1220 480 / 480 Output Total 800 / 800 750 / 750 Balance 420 / 420 -270 / -270 Weight 227 lb 1.218 oz Intake: IV 250 / 250 Heparin/D5W 25,000 U/250 mL 25, 250 / 250 000 unit In 250 ml @ 10 mls/hr IV.CONT .Q24H [facility] Rx#:[id number] Oral 970 / 970 480 / 480 Intake (Blood Product) Amt 0 / 0 Rbc As-3 Leukoreduced Unit 0 / 0 [id number] Rbc As-3 Leukoreduced Unit 0 / 0 [id number] Output: Urine 750 / 750 Urine Amount (Catheter) 800 / 800 Indwelling Urethral Catheter 800 / 800 Other: Date of Last Bowel Movement 03/03/18 03/04/18 03/04/18 # Bowel Movements 2 Result Diagrams: 03/05/18 05:00 03/04/18 04:20 Laboratory Results: Laboratory Results - last 24 hr 03/03/18 03/03/18 03/03/18 07:15 15:07 17:10 WBC RBC Hgb Hct MCV MCH MCHC RDW Plt Count MPV Neut % (Auto) Lymph % (Auto) [place] % (Auto) Eos % (Auto) Baso % (Auto) Neut # (Auto) Lymph # (Auto) [place] # (Auto) Eos # (Auto) Baso # (Auto) WBC Differential Differential Comment APTT 32.9 H Sodium Potassium Chloride Carbon Dioxide Anion Gap BUN Creatinine Estimated GFR POC Glucose 143 H Random Glucose Calcium MTS Gel Crossmatch See Detail 03/03/18 03/03/18 03/04/18 19:50 21:15 04:20 WBC 21.3 H RBC 3.23 L Hgb 8.3 L Hct 25.5 L MCV 79.0 L MCH 25.8 L MCHC 32.7 RDW 19.4 H Plt Count 106 L MPV 8.3 Neut % (Auto) 90.9 H Lymph % (Auto) 4.6 L [place] % (Auto) 3.9 Eos % (Auto) 0.5 Baso % (Auto) 0.1 Neut # (Auto) 19.3 H Lymph # (Auto) 1.0 [place] # (Auto) 0.8 Eos # (Auto) 0.1 Baso # (Auto) 0.0 WBC Differential . Differential Comment Auto diff final APTT 33.6 H Sodium Potassium Chloride Carbon Dioxide Anion Gap BUN Creatinine Estimated GFR POC Glucose 138 H Random Glucose Calcium MTS Gel Crossmatch 03/04/18 03/04/18 03/04/18 04:20 04:20 08:06 WBC RBC Hgb Hct MCV MCH MCHC RDW Plt Count MPV Neut % (Auto) Lymph % (Auto) [place] % (Auto) Eos % (Auto) Baso % (Auto) Neut # (Auto) Lymph # (Auto) [place] # (Auto) Eos # (Auto) Baso # (Auto) WBC Differential Differential Comment APTT 32.5 H Sodium 137 Potassium 3.6 Chloride 99 Carbon Dioxide 31.5 Anion Gap 7 BUN 12 Creatinine 0.57 Estimated GFR Greater than 89 POC Glucose 119 H Random Glucose 101 Calcium 9.0 MTS Gel Crossmatch 03/04/18 03/04/18 11:48 12:53 WBC RBC Hgb Hct MCV MCH MCHC RDW Plt Count MPV Neut % (Auto) Lymph % (Auto) [place] % (Auto) Eos % (Auto) Baso % (Auto) Neut # (Auto) Lymph # (Auto) [place] # (Auto) Eos # (Auto) Baso # (Auto) WBC Differential Differential Comment APTT 35.2 H Sodium Potassium Chloride Carbon Dioxide Anion Gap BUN Creatinine Estimated GFR POC Glucose 153 H Random Glucose Calcium MTS Gel Crossmatch Culture Results: Microbiology 03/03/18 15:45 Aerobic Blood Culture - Preliminary Blood - Peripheral No growth in 1 day Anaerobic Blood Culture - Preliminary No growth in 1 day 03/03/18 15:54 Aerobic Blood Culture - Preliminary Blood - Peripheral No growth in 1 day Anaerobic Blood Culture - Preliminary No growth in 1 day 02/28/18 05:30 Urine Culture - Final Catheterized Urine No growth in 48 hours Imaging Studies: Impressions Chest X-Ray 03/04/18 00:00 CONCLUSION: No acute cardiopulmonary disease. Medications: Active Medications Generic Name Dose Route Start Last Admin Trade Name Freq PRN Reason Stop Dose Admin Acyclovir 400 mg 02/26/18 22:00 03/04/18 06:35 Zovirax PO 400 mg Q8HR LISA Administration Al Hydroxide/Mg Hydroxide 30 ml 02/28/18 13:15 03/04/18 09:23 Milk Of April Liq PO Not Given Q12HR LISA Famotidine 20 mg 02/28/18 09:00 03/04/18 09:17 Pepcid PO 20 mg BID LISA Administration Hydromorphone HCl 0.5 mg 02/27/18 13:00 03/04/18 09:17 Dilaudid Pf Inj IV.PUSH 0.5 mg Q4H PRN Administration PAIN 6-10;IF UNABLE TO TAKE PO Heparin Sodium/Dextrose 25,000 unit in 250 mls @ 18 mls/hr 02/26/18 20:19 19:00 Heparin/D5w 25,000 U/250 Ml IV.CONT 500 units/hr TITRATE PRN 5 mls/hr Per Protocol Titration Protocol 1,800 UNITS/HR Heparin Sodium/Dextrose 25,000 unit in 250 mls @ 10 mls/hr 03/01/18 19:00 07:43 Heparin/D5w 25,000 U/250 Ml IV.CONT 14 mls/hr .Q24H LISA Infusion Protocol Ceftriaxone Sodium 1,000 mg/ 100 mls @ 200 mls/hr 03/03/18 15:00 03/03/18 16: 11 Sodium Chloride IV.SIG 200 mls/hr Q24H LISA Administration Insulin Aspart 0 unit 02/26/18 17:00 03/04/18 12:13 Novolog Insulin Correctional Sugar Inj SQ 1 unit ACHS LISA Administration Protocol Lactulose 30 ml 03/01/18 01:00 03/04/18 12:28 Lactulose Liq PO Not Given Q6H LISA Metoclopramide HCl 5 mg 02/27/18 17:00 03/03/18 03:29 Reglan Inj IV.PUSH 5 mg Q8H PRN Administration NAUSEA OR VOMITING Protocol Morphine Sulfate 15 mg 02/26/18 14:00 03/04/18 06:35 Oramorph Sr PO 15 mg Q8HR LISA Administration Morphine Sulfate 2 mg 02/27/18 20:10 03/02/18 08:10 Morphine Inj IV.PUSH 2 mg Q10M PRN Administration Pain Scale 1 - 4 Morphine Sulfate 4 mg 02/27/18 20:19 03/04/18 12:14 Morphine Inj IV.PUSH 4 mg Q3H PRN Administration PAIN 5-10 Oxycodone HCl 15 mg 02/26/18 13:58 03/02/18 21:47 Roxicodone PO 15 mg Q8H PRN Administration BREAKTHROUGH PAIN Objective Remarks: GENERAL: Overweight older female moaning in bed. Daughter at bedside. SKIN: Warm and dry. HEAD: Normocephalic. EYES: No scleral icterus. No injection or drainage. NECK: Supple, trachea midline. No JVD or lymphadenopathy. CARDIOVASCULAR: Regular rate and rhythm without murmurs. RESPIRATORY: Clear anteriorly. GASTROINTESTINAL: Abdomen soft, non-tender, nondistended. EXTREMITIES: Generalized edema, right lower extremity significantly more edematous than left. MUSCULOSKELETAL: Generalized weakness NEUROLOGICAL: No obvious focal deficit. Awake, alert, and oriented x3. Assessment/Plan - Plan 1. Venous thromboembolism: Patient is status post thrombolysis by interventional radiology with noted extrinsic compression from pelvic mass. She has had IVC filter placed. Her heparin infusion has remained subtherapeutic. Ideally would like to have this therapeutic for approximately 24 hours prior to transitioning back to edoxaban. I will have the nurse increased her heparin drip to 1600 U/h from 1400 U/h. Other option would be for Lovenox however the patient reports she is allergic. 2. Leukocytosis: reactive due to hospitalization, procedure. Monitor CBC. 3. Anemia: Clinical picture is that of anemia with chronic disease. Patient was transfused 1 unit yesterday. 4. Metastatic endometrial cancer: Follow-up with Dr. Montes once discharged - Attending Statement The exam, history, and the medical decision-making described in the above note were completed with the assistance of the mid-level provider. I reviewed and agree with the findings presented. I attest that I had a [id number] encounter with the patient on the same day, and personally performed and documented my assessment and findings in the medical record. Patient seen at bedside at approximately 8 pm on 03/04/2018. Daughter at bedside. Reports pain in leg that is slowly improving. Leg edema slowly improving. Upon hospital discharge continue edoxaban.
[2018-03-05] MEDS: Morphine Sulfate 15 MG SR Tablet PO SCH ×3 (05:03→21:27)
[2018-03-05] MEDS: Acyclovir 200 MG Capsule PO SCH ×4 (05:03→21:26)
[2018-03-05 05:25] LABS: Baso % (Auto) 0.2 % (0.0-2.0); Eos # (Auto) 0.1 th/mm3 (0.0-0.4); Eos % (Auto) 0.6 % (0.0-4.0); Hematocrit 25.9 % (35.0-46.0); Hemoglobin 8.3 gm/dL (11.6-15.3); Lymph # (Auto) 0.8 th/mm3 (1.0-4.8); Lymph % (Auto) 6.2 % (9.0-44.0); Mean Corpuscular HGB Conc 32.1 % (32.0-36.0); Mean Corpuscular Hemoglobin 25.5 pg (27.0-34.0); Mean Corpuscular Volume 79.5 fL (80.0-100.0); Mean Platelet Volume 8.2 fL (7.0-11.0); Mono # (Auto) 0.5 th/mm3 (0.0-0.9); Mono % (Auto) 3.8 % (0.0-8.0); Neut # (Auto) 12.1 th/mm3 (1.8-7.7); Neut % (Auto) 89.2 % (16.0-70.0); Platelet Count 123 th/mm3 (150-450); Red Blood Count 3.25 mil/mm3 (4.00-5.30); White Blood Count 13.6 th/mm3 (4.0-11.0)
--- NOTE | 2018-03-05 07:24 | P.PNIM ---
Subjective Interval history: in no acute distress. pain is fairly controlled. no fever. no new complaints. d/w the RN. Physical Exam Vital signs: Vital Signs 03/04/18 07:48 03/04/18 07:59 03/04/18 10:04 Temperature 99.1 F Pulse Rate 97 H 99 H Respiratory Rate 16 18 Blood Pressure 140/61 Pulse Oximetry 90 L 03/04/18 12:00 03/04/18 16:00 03/04/18 20:00 Temperature 98.7 F 98.6 F 98.4 F Pulse Rate 97 H 94 H 96 H Respiratory Rate 16 18 20 Blood Pressure 126/74 134/78 145/73 H Pulse Oximetry 96 97 95 03/04/18 21:00 03/04/18 23:00 03/05/18 00:00 Temperature 97.8 F Pulse Rate 90 90 91 H Respiratory Rate 16 Blood Pressure 145/66 H Pulse Oximetry 98 03/05/18 01:00 03/05/18 02:00 03/05/18 03:00 Temperature Pulse Rate 90 90 88 Respiratory Rate Blood Pressure Pulse Oximetry 03/05/18 04:00 03/05/18 05:00 03/05/18 06:00 Temperature 99.2 F Pulse Rate 88 89 88 Respiratory Rate 16 Blood Pressure 142/77 H Pulse Oximetry 97 Intake & Output 03/04/18 03/05/18 03/05/18 18:59 06:59 18:59 Intake Total 740 / 740 480 / 480 Output Total 450 / 450 600 / 600 Balance 290 / 290 -120 / -120 Intake: IV 100 / 100 Rocephin Inj 1,000 MG In NS Inj 100 / 100 100 ML @ 200 mls/hr IV.SIG Q24H [facility] Rx#:[id number] Oral 640 / 640 480 / 480 Output: Urine 450 / 450 600 / 600 Other: # Voids 2 Date of Last Bowel Movement 03/04/18 03/04/18 # Incontinent Bowel Movements 4 - Constitutional no acute distress - Routine Respiratory Exam Present: CTA bilaterally - Routine Cardiovascular Exam Present: RRR - Routine Abdominal Exam Present: soft - Routine Extremities Exam Present: edema (right leg.) - Routine Neurological Exam Present: alert, oriented X3 - Urinary Catheter Management Indwelling Urethral Catheter Cath placed during this visit: yes, but has since been removed by the nurse Reason for continuing: Acute urinary retention Insertion date: 02/28/18 Insertion time: 01:25 Removal date: 03/04/18 Removal time: 09:00 Results - Labs CBC & Chem 7: 03/05/18 05:00 03/04/18 04:20 Laboratory Results - last 24 hr 03/04/18 03/04/18 03/04/18 08:06 11:48 12:53 WBC RBC Hgb Hct MCV MCH MCHC RDW Plt Count MPV Neut % (Auto) Lymph % (Auto) [place] % (Auto) Eos % (Auto) Baso % (Auto) Neut # (Auto) Lymph # (Auto) [place] # (Auto) Eos # (Auto) Baso # (Auto) WBC Differential Differential Comment APTT 35.2 H POC Glucose 119 H 153 H 03/04/18 03/04/18 03/05/18 17:21 20:00 00:45 WBC RBC Hgb Hct MCV MCH MCHC RDW Plt Count MPV Neut % (Auto) Lymph % (Auto) [place] % (Auto) Eos % (Auto) Baso % (Auto) Neut # (Auto) Lymph # (Auto) [place] # (Auto) Eos # (Auto) Baso # (Auto) WBC Differential Differential Comment APTT 34.7 H POC Glucose 131 H 136 H 03/05/18 05:00 WBC 13.6 H RBC 3.25 L Hgb 8.3 L Hct 25.9 L MCV 79.5 L MCH 25.5 L MCHC 32.1 RDW 19.0 H Plt Count 123 L MPV 8.2 Neut % (Auto) 89.2 H Lymph % (Auto) 6.2 L [place] % (Auto) 3.8 Eos % (Auto) 0.6 Baso % (Auto) 0.2 Neut # (Auto) 12.1 H Lymph # (Auto) 0.8 L [place] # (Auto) 0.5 Eos # (Auto) 0.1 Baso # (Auto) 0.0 WBC Differential . Differential Comment Auto diff final APTT POC Glucose Microbiology 03/03/18 11:30 Catheterized Urine Urine Culture - Preliminary No growth in 24 hours 03/03/18 15:45 Blood - Peripheral Aerobic Blood Culture - Preliminary No growth in 1 day 03/03/18 15:45 Blood - Peripheral Anaerobic Blood Culture - Preliminary No growth in 1 day 03/03/18 15:54 Blood - Peripheral Aerobic Blood Culture - Preliminary No growth in 1 day 03/03/18 15:54 Blood - Peripheral Anaerobic Blood Culture - Preliminary No growth in 1 day - Imaging Impressions Chest X-Ray 03/04/18 00:00 CONCLUSION: No acute cardiopulmonary disease. Assessment and Plan - Plan A/P - recently diagnosed PE/ DVT of the right lower extremity - presented back to the hospital as a direct admission because of worsening pain and swelling of the right leg. was recently discharged from the hospital on Edoxaban- IR consulted-s/p IVC filter placement and thrombolysis of right femoropopliteal segment and stent placement in iliac system. on Heparin drip. continue with pain control. cleared by IR for discharge- Hematology following. -sepsis likely due to UTI- started on IV Rocephin-blood cultures negative so far.. monitor temps- CBC in AM. -urinary retention- resolved- removed johnson cath. -anemia- likely due to chronic disease- - s/p PRBC transfusion- H/H stable. continue to monitor. -Shingles- continue Acyclovir. -diabetes mellitus; hold metformin- started on accu-check with SSI. -endometrial cancer; f/u as outpatient. Discharge Planning: patient is willing to go to rehab. case management/PT consulted. possible dc to rehab in 24-48 hrs if remains stable, afebrile and cleared by Hematology. continue with her pain regimen upon discharge; E-[facility]se was reviewed.
[2018-03-05] MEDS: Famotidine 20 MG Tablet PO SCH ×2 (08:23→21:26)
[2018-03-05] MEDS: Insulin NovoLOG Aspart Correctional Sugar Inj SQ SCH ×4 (08:25→22:30)
--- NOTE | 2018-03-05 09:05 | IR ---
EXAM DATE: 02/27/2018 5:14 PM EDT AGE/SEX: 62 years / Female INDICATIONS: Patient with right lower extremity DVT in need of retrievable IVC filter placement. CLINICAL DATA: This is the patient's initial encounter. Patient reports that signs and symptoms have been present for 1 day and indicates a pain score of 8/10. MEDICAL/SURGICAL HISTORY: Hypertension. Diabetes. Deep venous thrombosis. Endometrial cancer Hysterectomy. Tonsillectomy. Port placement COMPARISON: [facility] [place], [place] VENOUS DOPPLER LEG RIGHT, 02/26/2018. . FLUORO TIME (min): 38.5 IMAGE SERIES: 1 ACCESS SITE: Right internal jugular vein SEDATION TIME (min): 120 CONTRAST (cc): 50cc Omnipaque (iohexol) 350 MEDICATION(S): 6mg midazolam (Versed) IV 3.5mg hydromorphone (Dilaudid) IV 250mcg fentanyl (Sublimaze) IV DEVICE(S): Inferior vena cava Jugular [place] filter . . PROCEDURE : 1. Ultrasound-guided venipuncture. 2. Inferior venacavogram. 3. Inferior vena cava filter placement. 4. Conscious sedation with continuous EKG and oximetry monitoring. The risks, benefits and alternatives to the procedure were explained and verbal and written consent w as obtained. The site was prepped in sterile fashion. Full sterile technique was used, including ca p, mask, sterile gloves and gown and a large sterile sheet. Hand hygiene and 2% chlorhexidine and/or betadine/alcohol prep was utilized per protocol for cutaneous antisepsis. Sterile gel and sterile p robe cover were utilized for ultrasound guidance. The skin and subcutaneous tissues were infiltrated with local anesthetic solution. With ultrasound and fluoroscopic guidance the targeted vein was punctured and a vascular sheath was p laced. Inferior venacavogram was performed to demonstrate level of renal veins. No caval thrombus was identified. The prescribed filter was deployed in the infrarenal inferior vena cava. Following deplo yment the filter was identified in good position. Conscious sedation was performed with the prescribed dosages and duration as above in the presence of an independent trained radiology nurse to assist in the monitoring of the patient. EKG and oximetry remained stable throughout the procedure. The patient tolerated the procedure well and there were n o complications. The patient was sent to post anesthesia recovery in stable condition. CONCLUSION: 1. Uncomplicated inferior vena cava filter placement as above. Electronically signed by: Jorge Velasquez MD 03/05/2018 9:04 AM EDT
--- NOTE | 2018-03-05 09:05 | IR ---
EXAM DATE: 02/27/2018 5:15 PM EDT AGE/SEX: 62 years / Female INDICATIONS: Patient with right lower extremity DVT in need of venogram with thrombolytic infusion. CLINICAL DATA: This is the patient's initial encounter. Patient reports that signs and symptoms have been present for 1 day and indicates a pain score of 8/10. MEDICAL/SURGICAL HISTORY: Diabetes. Deep venous thrombosis. Hypertension. Endometrial cancer , Hysterectomy. Tonsillectomy. Port placement COMPARISON: [facility], ANGIOGRAM, FU THRU EXIST CATH RT, 03/01/2018. . FLUORO TIME (min): 38.5 IMAGE SERIES: 8 ACCESS SITE: Right internal jugular vein CONTRAST (cc): 50cc Omnipaque (iohexol) 350 MEDICATION(S): 6mg midazolam (Versed) IV 250mcg fentanyl (Sublimaze) IV 3.5mg hydromorphone (Dilaudid) IV DEVICE(S): Right superficial femoral vein EV3 Infusion catheter 5F [id number] . . PROCEDURE : 1. Ultrasound-guided venipuncture. 2. Venogram. 3. Initiation of thrombolytic therapy S The risks, benefits and alternatives to the procedure were explained and verbal and written consent w as obtained. The site was prepped in sterile fashion. Full sterile technique was used, including ca p, mask, sterile gloves and gown and a large sterile sheet. Hand hygiene and 2% chlorhexidine and/or betadine/alcohol prep was utilized per protocol for cutaneous antisepsis. Sterile gel and sterile p robe cover were utilized for ultrasound guidance. The skin and subcutaneous tissues were infiltrated with local anesthetic solution. With ultrasound guidance the jugular vein was punctured and after IVC filter placement the right lowe r extremity was evaluated in a retrograde fashion. This demonstrates complete occlusion of the right common iliac, external iliac femoral and popliteal veins. A diagnostic catheter was advanced to the l evel of the trifurcation veins and over this a multi-sidehole infusion catheter was placed. TPA infus ion was begun via standard protocol and the patient will continue therapy overnight. The occlusion of the iliac veins is related to adenopathy in the right pelvic sidewall is patient with known endometr ial carcinoma. CONCLUSION: Complete thrombosis of the right lower extremity and right iliac veins Uncomplicated initiation of thrombolytic therapy Electronically signed by: Jorge Velasquez MD 03/05/2018 9:03 AM EDT
[2018-03-05] MEDS: HYDROmorphone PF Inj 2 MG/ML Vial IV.PUSH PRN ×3 (09:51→23:54)
[2018-03-05] MEDS: Morphine Inj 4 MG/ML Vial IV.PUSH PRN (21:31)
[2018-03-05] MEDS: Heparin Drip 25,000 UNIT/250 ML BAG IV.CONT SCH ×2 (21:40→21:42)
[2018-03-06] MEDS: Morphine Inj 4 MG/ML Vial IV.PUSH PRN ×3 (04:08→16:29)
[2018-03-06] MEDS: Acyclovir 200 MG Capsule PO SCH ×2 (06:09→14:57)
[2018-03-06] MEDS: Morphine Sulfate 15 MG SR Tablet PO SCH ×2 (06:10→14:57)
--- NOTE | 2018-03-06 07:58 | P.PNIM ---
Subjective Interval history: f/u; DVT. in no acute distress. pain is fairly controlled. no fever. had urinary retention and johnson was replaced last night. d/w the RN. Physical Exam Vital signs: Vital Signs 03/05/18 08:00 03/05/18 09:00 03/05/18 10:00 Temperature 98.7 F Pulse Rate 88 90 91 H Respiratory Rate 16 Blood Pressure 137/64 Pulse Oximetry 97 03/05/18 10:54 03/05/18 11:00 03/05/18 12:00 Temperature 98.4 F Pulse Rate 99 H 94 H Respiratory Rate 18 18 Blood Pressure 139/76 Pulse Oximetry 96 03/05/18 13:00 03/05/18 14:00 03/05/18 15:00 Temperature Pulse Rate 96 H 89 90 Respiratory Rate Blood Pressure Pulse Oximetry 03/05/18 16:00 03/05/18 17:00 03/05/18 18:00 Temperature 98.6 F Pulse Rate 95 H 96 H 86 Respiratory Rate 18 Blood Pressure 117/59 L Pulse Oximetry 96 03/05/18 20:00 03/05/18 21:58 03/05/18 21:59 Temperature 99.6 F Pulse Rate 96 H Respiratory Rate 16 16 16 Blood Pressure 128/70 Pulse Oximetry 97 03/06/18 00:00 03/06/18 04:00 03/06/18 04:03 Temperature 98.6 F 98.6 F Pulse Rate 92 H 86 Respiratory Rate 16 16 16 Blood Pressure 121/72 127/67 Pulse Oximetry 99 96 Intake & Output 03/05/18 03/06/18 03/06/18 18:59 06:59 18:59 Intake Total 480 / 480 1080 / 1080 Output Total 850 / 850 1300 / 1300 Balance -370 / -370 -220 / -220 Weight 102 kg Intake: IV 600 / 600 Heparin/D5W 25,000 U/250 mL 25, 500 / 500 000 unit In 250 ml @ 10 mls/hr IV.CONT .Q24H LISA Rx#:[id number] Rocephin Inj 1,000 MG In NS Inj 100 / 100 100 ML @ 200 mls/hr IV.SIG Q24H LISA Rx#:[id number] Oral 480 / 480 480 / 480 Output: Urine 850 / 850 1300 / 1300 Other: # Voids 4 Date of Last Bowel Movement 03/05/18 03/05/18 - Constitutional no acute distress - Routine Respiratory Exam Present: CTA bilaterally - Routine Cardiovascular Exam Present: RRR - Routine Abdominal Exam Present: soft - Routine Extremities Exam Present: edema (improved edema right leg.) - Urinary Catheter Management Indwelling Urethral Catheter Cath placed during this visit: yes, but has since been removed by the nurse Reason for continuing: Acute urinary retention Insertion date: 02/28/18 Insertion time: 01:25 Removal date: 03/04/18 Removal time: 09:00 Results - Labs CBC & Chem 7: 03/05/18 05:00 03/04/18 04:20 Laboratory Results - last 24 hr 03/05/18 03/05/18 03/05/18 08:15 10:21 17:15 APTT 63.3 H D POC Glucose 122 H 145 H 03/05/18 03/05/18 03/06/18 22:14 23:55 05:00 APTT 35.4 H D 33.6 H POC Glucose 174 H Microbiology 03/03/18 15:45 Blood - Peripheral Aerobic Blood Culture - Preliminary No growth in 2 days 03/03/18 15:45 Blood - Peripheral Anaerobic Blood Culture - Preliminary No growth in 2 days 03/03/18 15:54 Blood - Peripheral Aerobic Blood Culture - Preliminary No growth in 2 days 03/03/18 15:54 Blood - Peripheral Anaerobic Blood Culture - Preliminary No growth in 2 days 03/03/18 11:30 Catheterized Urine Urine Culture - Final No growth in 48 hours - Imaging Impressions Extremity Venous Study 02/27/18 00:00 CONCLUSION: Complete thrombosis of the right lower extremity and right iliac veins Uncomplicated initiation of thrombolytic therapy IVC Filter Placement X-Ray 02/27/18 00:00 CONCLUSION: 1. Uncomplicated inferior vena cava filter placement as above. - Procedures IVC filter placement and thrombolysis of right femoropopliteal segment and stent placement in iliac system. Assessment and Plan - Plan A/P - recently diagnosed PE/ DVT of the right lower extremity - presented back to the hospital as a direct admission because of worsening pain and swelling of the right leg. was recently discharged from the hospital on Edoxaban- IR consulted-s/p IVC filter placement and thrombolysis of right femoropopliteal segment and stent placement in iliac system. on Heparin drip. continue with pain control. cleared by IR for discharge- Hematology following. d/w today; cleared for discharge pending metabolic/coagulation panel today; will continue with Edoxaban as outpatient. -sepsis likely due to UTI- treated with IV Rocephin-blood cultures negative so far. monitor temps- -urinary retention- johnson cath was replaced- voiding trial in few days. -anemia- likely due to chronic disease- - s/p PRBC transfusion- H/H stable. continue to monitor. -Shingles- continue Acyclovir. -diabetes mellitus; hold metformin- started on accu-check with SSI. -endometrial cancer; f/u as outpatient. Discharge Planning: patient is willing to go to rehab. case management/PT consulted. possible dc to rehab within the next 24 hrs- . continue with her pain regimen upon discharge; E-Hank was reviewed.
[2018-03-06] MEDS: Insulin NovoLOG Aspart Correctional Sugar Inj SQ SCH ×2 (08:52→14:05)
[2018-03-06] MEDS: Famotidine 20 MG Tablet PO SCH (08:55)
[2018-03-06] MEDS: HYDROmorphone PF Inj 2 MG/ML Vial IV.PUSH PRN ×3 (08:55→17:16)
[2018-03-06] MEDS: Heparin Drip 25,000 UNIT/250 ML BAG IV.CONT PRN (10:26)
[2018-03-06 13:40] LABS: Activated Partial Thrombo Time 34.3 sec (24.3-30.1)
[2018-03-06 13:53] LABS: Potassium 3.2 meq/L (3.5-5.1); Sodium 138 meq/L (136-145)
[2018-03-06 13:54] LABS: Anion Gap 5 meq/L (5-15); Carbon Dioxide 34.9 meq/L (21.0-32.0); Chloride 98 meq/L (98-107)
[2018-03-06 14:01] LABS: Alanine Aminotransferase 10 U/L (10-53); Albumin 1.6 g/dL (3.4-5.0); Aspartate Aminotransferase 15 U/L (15-37); Blood Urea Nitrogen 11 mg/dL (7-18); Calcium 8.4 mg/dL (8.5-10.1); Glomerular Filtration Rate Greater Than 89 mL/min (>89); Glucose,Random 116 mg/dL (74-106); Total Protein 5.8 g/dL (6.4-8.2)
[2018-03-06 14:02] LABS: Alkaline Phosphatase 98 U/L (45-117)
--- NOTE | 2018-03-06 14:42 | P.PNWCN ---
Wound Care Nurse Consult Description: Consult for wound management of sacral per Dr Mohr. Communicated with: Dr Mohr Recommendation: Turn patient from left to right Q2H to relieve pressure. Use disposable ultrasorb underneath patient for moisture. Apply Calazime to bilateral buttocks BID and PRN for moisture. PLEASE DO NOT PLACE COTTON PULL PADS UNDER PATIENT Additional information: Patient seen on for wound evaluation of sacrum. Wound/Pressure Injury - Wound Bilateral buttocks Wound Staging: Stage II Wound Type: Pressure Injury (wounds are partial thickness skin loss with mixed etiology of moisture, friction, and pressure) Is This a Chronic Wound: No Requested from Provider a Wound Care Consult: Yes (Dr Mohr) Length: 2 (cm) Width: 1 (cm) Depth: 0.1 (cm) Wound Bed Appearance: [place] Wound Bed Appearance: moist pink wound beds noted over sil prominences with jagged denuded wound margins. Drainage Amount: None Drainage Odor: No Odor Dressing Status: Open to Air Topical: Calazime skin protectant paste
[2018-03-06] MEDS ORDERED: EDOXABAN 60 MG PO SCH (15:00)
--- NOTE | 2018-03-06 17:19 | P.PNONC ---
Subjective Interval history: Resting in bed in no distress. and daughter at bedside. Objective Vital Signs/Intake & Output: Vital Signs 03/05/18 18:00 03/05/18 20:00 03/05/18 21:58 Temperature 99.6 F Pulse Rate 86 96 H Respiratory Rate 16 16 Blood Pressure 128/70 Pulse Oximetry 97 03/05/18 21:59 03/06/18 00:00 03/06/18 04:00 Temperature 98.6 F 98.6 F Pulse Rate 92 H 86 Respiratory Rate 16 16 16 Blood Pressure 121/72 127/67 Pulse Oximetry 99 96 03/06/18 04:03 03/06/18 06:00 03/06/18 07:00 Temperature Pulse Rate 94 H 89 Respiratory Rate 16 Blood Pressure Pulse Oximetry 03/06/18 08:00 03/06/18 09:00 03/06/18 10:00 Temperature 98.9 F Pulse Rate 92 H 92 H 90 Respiratory Rate 16 Blood Pressure 129/69 Pulse Oximetry 98 03/06/18 11:00 03/06/18 12:00 03/06/18 13:00 Temperature 98.7 F Pulse Rate 91 H 93 H 94 H Respiratory Rate 16 Blood Pressure 152/68 H Pulse Oximetry 93 L Intake & Output 03/05/18 03/06/18 03/06/18 18:59 06:59 18:59 Intake Total 480 / 480 1080 / 1080 Output Total 850 / 850 1300 / 1300 Balance -370 / -370 -220 / -220 Weight 102 kg Intake: IV 600 / 600 Heparin/D5W 25,000 U/250 mL 25, 500 / 500 000 unit In 250 ml @ 10 mls/hr IV.CONT .Q24H LISA Rx#:[id number] Rocephin Inj 1,000 MG In NS Inj 100 / 100 100 ML @ 200 mls/hr IV.SIG Q24H LISA Rx#:[id number] Oral 480 / 480 480 / 480 Output: Urine 850 / 850 1300 / 1300 Other: # Voids 4 Date of Last Bowel Movement 03/05/18 03/05/18 Result Diagrams: 03/05/18 05:00 03/06/18 12:46 Laboratory Results: Laboratory Results - last 24 hr 03/05/18 03/05/18 03/05/18 17:15 22:14 23:55 APTT 35.4 H D Fibrinogen Sodium Potassium Chloride Carbon Dioxide Anion Gap BUN Creatinine Estimated GFR POC Glucose 145 H 174 H Random Glucose Calcium Total Bilirubin AST ALT Alkaline Phosphatase Total Protein Albumin 03/06/18 03/06/18 03/06/18 05:00 08:00 12:46 APTT 33.6 H 34.3 H Fibrinogen 485 H Sodium Potassium Chloride Carbon Dioxide Anion Gap BUN Creatinine Estimated GFR POC Glucose 124 H Random Glucose Calcium Total Bilirubin AST ALT Alkaline Phosphatase Total Protein Albumin 03/06/18 12:46 APTT Fibrinogen Sodium 138 Potassium 3.2 L Chloride 98 Carbon Dioxide 34.9 H Anion Gap 5 BUN 11 Creatinine 0.46 L Estimated GFR Greater than 89 POC Glucose Random Glucose 116 H Calcium 8.4 L Total Bilirubin 0.6 AST 15 ALT 10 Alkaline Phosphatase 98 Total Protein 5.8 L Albumin 1.6 L Culture Results: Microbiology 03/03/18 15:45 Aerobic Blood Culture - Preliminary Blood - Peripheral No growth in 3 days Anaerobic Blood Culture - Preliminary No growth in 3 days 03/03/18 15:54 Aerobic Blood Culture - Preliminary Blood - Peripheral No growth in 3 days Anaerobic Blood Culture - Preliminary No growth in 3 days 03/03/18 11:30 Urine Culture - Final Catheterized Urine No growth in 48 hours Medications: Active Medications Generic Name Dose Route Start Last Admin Trade Name Freq PRN Reason Stop Dose Admin Acyclovir 400 mg 02/26/18 22:00 03/06/18 14:57 Zovirax PO 400 mg Q8HR LISA Administration Al Hydroxide/Mg Hydroxide 30 ml 02/28/18 13:15 03/06/18 08:52 Milk Of Magnesia Liq PO Not Given Q12HR LISA Edoxaban 60 mg 03/06/18 15:00 03/06/18 16:23 Savaysa PO 60 mg DAILY LISA Administration Famotidine 20 mg 02/28/18 09:00 03/06/18 08:55 Pepcid PO 20 mg BID LISA Administration Hydromorphone HCl 0.5 mg 02/27/18 13:00 03/06/18 12:27 Dilaudid Pf Inj IV.PUSH 0.5 mg Q4H PRN Administration PAIN 6-10;IF UNABLE TO TAKE PO Ceftriaxone Sodium 1,000 mg/ 100 mls @ 200 mls/hr 03/03/18 15:00 03/06/18 14: 58 Sodium Chloride IV.SIG 200 mls/hr Q24H LISA Administration Insulin Aspart 0 unit 02/26/18 17:00 03/06/18 14:05 Novolog Insulin Correctional Sugar Inj SQ Not Given ACHS [facility] Protocol Lactulose 30 ml 03/01/18 01:00 03/06/18 14:05 Lactulose Liq PO Not Given Q6H LISA Metoclopramide HCl 5 mg 02/27/18 17:00 03/05/18 05:04 Reglan Inj IV.PUSH 5 mg Q8H PRN Administration NAUSEA OR VOMITING Protocol Morphine Sulfate 15 mg 02/26/18 14:00 03/06/18 14:57 Oramorph Sr PO 15 mg Q8HR LISA Administration Morphine Sulfate 2 mg 02/27/18 20:10 03/02/18 08:10 Morphine Inj IV.PUSH 2 mg Q10M PRN Administration Pain Scale 1 - 4 Morphine Sulfate 4 mg 02/27/18 20:19 03/06/18 16:29 Morphine Inj IV.PUSH 4 mg Q3H PRN Administration PAIN 5-10 Objective Remarks: GENERAL: Well-nourished, well-developed patient. SKIN: Warm and dry. HEAD: Normocephalic. EYES: No scleral icterus. No injection or drainage. NECK: Supple, trachea midline. No JVD or lymphadenopathy. LYMPHATIC: No adenopathy. CARDIOVASCULAR: Regular rate and rhythm without murmurs. RESPIRATORY: Breath sounds equal bilaterally. No accessory muscle use. GASTROINTESTINAL: Abdomen soft, non-tender, nondistended. EXTREMITIES: right lower extremity edema at hip NEUROLOGICAL: No obvious focal deficit. Awake, alert, and oriented x3. Assessment/Plan - Plan 1. Venous thromboembolism: Patient is status post thrombolysis by interventional radiology with stent placement. Heparin gtt has been discontinued and she is resumed on edoxaban. Continue indefinitely in the outpatient setting. close follow up in hematology clinic on discharge. 2. Leukocytosis: reactive due to hospitalization, procedure. Monitor CBC. 3. Anemia: Clinical picture is that of anemia with chronic disease. Patient was transfused 1 unit yesterday. 4. Metastatic endometrial cancer: Follow-up with Dr. Montes once discharged
--- NOTE | 2018-03-22 17:34 | P.DS ---
Date of admission: 02/27/18 11:49 Primary care physician: Ramez Robledo MD Brief History from admission: patient is a 62 y/o female with history of endometrial cancer,DVT and diabetes, who was sent to the hospital as a direct admission, because of worsening pain to the right leg. she was recently admitted to the hospital because of PE and DVT of the right lower extremity. she was released from the hospital with Edoxaban. she says that her pain to the right leg continued to get worse.she was seen by yesterday and was advised to come to ER last night but she decided to wait. she denies any sob at this time but she says that her pain to the right leg is severe. DS: Diagnosis - Discharge Diagnosis (1) Venous thromboembolism Status: Acute DS: Medications - Discharge Medications Prescriptions: morphine 15 mg PO Q8H #6 ea oxycodone 10 mg PO Q8H PRN #6 tab PRN Reason: breakthrough pain DS: Summary Hospital Course: - recently diagnosed PE/ DVT of the right lower extremity - presented back to the hospital as a direct admission because of worsening pain and swelling of the right leg. was recently discharged from the hospital on Edoxaban- IR consulted-s/p IVC filter placement and thrombolysis of right femoropopliteal segment and stent placement in iliac system. on Heparin drip. continue with pain control. cleared by IR for discharge- Hematology following. d/w today; cleared for discharge pending metabolic/coagulation panel today; will continue with Edoxaban as outpatient. -sepsis likely due to UTI- treated with IV Rocephin-blood cultures negative so far. monitor temps- -urinary retention- johnson cath was replaced- voiding trial in few days. -anemia- likely due to chronic disease- - s/p PRBC transfusion- H/H stable. continue to monitor. -Shingles- continue Acyclovir. -diabetes mellitus; hold metformin- started on accu-check with SSI. -endometrial cancer; f/u as outpatient. - Time Spent with Patient Total time spent providing and/or coordinating discharge services: Less than 30 minutes - Quality: VTE Deep Vein Thrombosis/Pulmonary Embolism Present on Admission: Yes Results Procedures completed during hospitalization: IVC filter placement and thrombolysis of right femoropopliteal segment and stent placement in iliac system. - Impressions ITS Impressions Venous Doppler Study 02/26/18 00:00 CONCLUSION: 1. 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 Extremity Venous Study 02/27/18 00:00 CONCLUSION: Complete thrombosis of the right lower extremity and right iliac veins Uncomplicated initiation of thrombolytic therapy IVC Filter Placement X-Ray 02/27/18 00:00 CONCLUSION: 1. Uncomplicated inferior vena cava filter placement as above. Miscellaneous Special Procedure 03/01/18 00:00 CONCLUSION: 1. Extensive stenting of the right iliac venous system due to tumoral obstruction as detailed above. 2. [place] AngioJet of the popliteal, SFV and right iliac venous system with mosque of contiguous outflow. Chest X-Ray 03/04/18 00:00 CONCLUSION: No acute cardiopulmonary disease. Discharge Plan - Discharge Disposition Patient Disposition: Discharge to SNF - Discharge Condition Condition: Fair - Discharge Order Discharge Orders: Discharge Order (Routine); Ordered 03/06/18 Ordered By: Elsy Mohr - Physicians Team Primary Care Provider: Ramez Robledo Attending Provider: Elsy Mohr Other Providers: Mely Riddle ; Connie Hargrove MD ; [employer], [employer] ; [facility],[place] ; [facility] - Rxs /Orders / Referrals /Forms Prescriptions: New morphine 15 mg Tablet,Oral Only,Extnd Release 15 mg PO Q8H Qty: 6 RF: 0 oxycodone 10 mg Tablet 10 mg PO Q8H PRN (Reason: breakthrough pain) Qty: 6 RF: 0 Continue acyclovir 400 mg Tablet 400 mg PO Q4H metformin 500 mg Tablet 500 mg PO BID Discontinued morphine 15 mg Tablet Extended Release 15 mg PO Q8HR PRN (Reason: Pain) oxycodone 15 mg Tablet,Oral Only,Ext.Rel.12 Hr 15 mg PO Q4-6H Referrals: Ramez Robledo MD [Primary Care Provider] - See Instructions - Discharge Instructions Patient Printed Instructions: Pulmonary Embolism (DC), Heart Healthy Diet (DC) , Deep Vein Thrombosis (DC), Inferior Vena Cava Filter Placement (DC), Pressure Ulcer (DC) - Post Discharge Care Plan Care Plan Goals: Continue to apply skin protectant to wounds on buttocks BID and PRN. Reposition Q2H from left to right sides limit time spent on back. Use moisture wicking underpads
== END 2018-03-06 18:30 ==
LOC: INTOOBSV 13:04 → HCIN 13:04 → N03 02-27 12:34 → HCIN 02-27 12:59 → N03 02-27 13:58 → HCPC 03-02 12:18
PROVIDERS: ADMIT Internal Medicine; ATTEND Internal Medicine